=== PATIENT | male | born 1960 | race Caucasian/White ===

== ENCOUNTER → 2017-01-13 | Outpatient (CLI) | payer MEDICARE, MEDICAID ==
[~2017-01-13] MED LIST: /TIOT18INH INH; ABREVA; ACTO15TA OR; ALBU17IN2 INH; ALTA10CA3 PO; ASPI1TAB PO; ATEN25TA OR; ATEN50TA2 PO; AUGM500T34 OR; BYETTA OR; CARI350T OR; CELE40TA OR; CITA40TA4 PO; DRIS50002 PO; GABA300T OR; GLUC500T OR; HUMA100I3 SC; INSULANT SC; KEFL500C7 PO; LIDO5DIS TOP; LISI10TA4 OR; MELOPOW OR; MOBI15TA PO; MS C15TA2 PO; NITR0.4S SL; OMEP20TA7 OR; PLAV75TA2 OR; ROXI1TAB2 PO; SIMV80TA OR; TIOT18INH INH; TRAM50TA2 OR; TYLE325T5 PO; VICO5TAB; VICOBULK OR; VICODIN PO; VITAMIN D50000 UNT OR; flexeril PO
--- NOTE | 2017-01-13 13:32 | REP ---
MR angiography of the aorta and lower extremity arteries: With IV contrast. History: Peripheral vascular disease. Gadolinium enhancement dose: 35 ml of intravenous ProHance is administered. Technique: 3-D MR angiography of the abdominal aorta and runoff vessels is acquired and maximal intensity projection images are generated and reviewed rotationally. Source coronal images are reviewed as well. MR angiographic findings: There is mild atherosclerotic irregularity of the suprarenal and infrarenal abdominal aorta. The celiac and superior mesenteric artery origins are widely patent. Right renal artery is duplicated. Neither branch shows high-grade stenosis. The left renal artery singular and nonstenotic. Flow signal is noted in a patent inferior mesenteric artery. There is atherosclerotic plaquing at the origins of the common iliac arteries bilaterally with 60-70% stenosis of the right common iliac artery at its origin. There is 50% stenosis of the distal common iliac artery just above the bifurcation with eccentric anterior wall plaquing. Mild plaquing and 50% stenosis is seen at the origin of the left external iliac artery. The internal iliacs are bilaterally patent. The external iliac arteries are widely patent bilaterally. Profunda and superficial femoral arteries are widely patent bilaterally. Popliteal arteries are widely patent and smooth. The calf trifurcations are clear and three-vessel calf run off is seen to the distal calf bilaterally. Impression: Bilateral common iliac artery atherosclerotic disease with 60-70% stenosis at the origin of the right common iliac artery and 50% stenosis in the distal common iliac artery on the right. There is 50% stenosis of the origin of the left external iliac artery. Lower extremity runoff arterial flow is otherwise unremarkable. Signed by Yeison Jasmine MD 01/13/2017 03:39 P
== END ==
LOC: M RAD 12:17
PROVIDERS: ATTEND Family Medicine
DX: I73.9 Peripheral vascular disease, unspecified (principal)
CPT/HCPCS: A9576; C8902; C8914

== ENCOUNTER → 2017-04-21 | Outpatient (CLI) | payer MEDICARE, MEDICAID ==
[~2017-04-21] VITALS: Ht 162.6 cm; Wt 92.5 kg
[~2017-04-21] MED LIST changes: -ALTA10CA3 PO; +ALTA1CAP4 PO; +ASPI81TA18 PO; +BUPR150T5 PO; +CELE20TA PO; +CELE40TA PO; +CLOP75TA2 PO; +CYCL10TA PO; +EZET10TA PO; +GABA-282 PO; +INCR1INH IN; +INSULADS INJ; +JANU100T PO; +KEFL500C17 PO; -KEFL500C7 PO; +LIDOCAINE 2% INJ 100 MG/5 ML SDV (FOR ANES.) As Ordered ONE; +METF500T13 PO; -MS C15TA2 PO; +MS C15TA8 PO; +NS 1,000 ML IV ONE; +OMEP20CA3 PO; +PROPOFOL 500 MG/50 ML VIAL As Ordered ONE; +ROPI0.5T PO; +SIMV40TA2 PO
--- NOTE | 2017-04-21 10:29 | ROOR ---
Patient Name: Oscar Acosta Procedure Date: 04/21/2017 10:09 AM Date of : 1960 Age: 56 Room: [facility] Gender: Male Note Status: Finalized Procedure: Colonoscopy Indications: High risk colon cancer surveillance: Personal history of colonic polyps Providers: Olivier SINGH MD Referring MD: CARLOS ZELAYA MD Requesting Provider: Medicines: Monitored Anesthesia Care Complications: No immediate complications. Procedure: Pre-Anesthesia Assessment: - The heart rate, respiratory rate, oxygen saturations, blood pressure, adequacy of pulmonary ventilation, and response to care were monitored throughout the procedure. The Colonoscope was introduced through the anus and advanced to the cecum, identified by appendiceal orifice and ileocecal valve. The colonoscopy was performed without difficulty. The patient tolerated the procedure well. The quality of the bowel preparation was good. Findings: The perianal and digital rectal examinations were normal. (Exam: Complete, Prep: Good or Excellent.) A 4 mm polyp was found in the sigmoid colon. The polyp was sessile. The polyp was removed with a cold snare. Resection and retrieval were complete. The exam was otherwise without abnormality on direct and retroflexion views. Impression: - One 4 mm polyp in the sigmoid colon, removed with a cold snare. Resected and retrieved. - The examination was otherwise normal on direct and retroflexion views. Recommendation: - Repeat colonoscopy in 5 years for surveillance. - Resume Plavix (clopidogrel) at prior dose today. Olivier Singh MD Olivier SINGH MD 04/21/2017 10:29:05 AM This report has been signed electronically. Number of Addenda: 0 Note Initiated On: 04/21/2017 10:09 AM Estimated Blood Loss: Estimated blood loss: none.
[2017-04-21 10:55] VITALS: BP 138/86
== END ==
LOC: M OPP 08:21
PROVIDERS: ATTEND Internal Medicine Gastroenterology
DX: Z12.11 Encounter for screening for malignant neoplasm of colon (principal); D12.5 Benign neoplasm of sigmoid colon; J44.9 Chronic obstructive pulmonary disease, unspecified; M19.90 Unspecified osteoarthritis, unspecified site; I10 Essential (primary) hypertension; E11.9 Type 2 diabetes mellitus without complications; Z88.8 Allergy status to other drugs, medicaments and biological substances; F17.210 Nicotine dependence, cigarettes, uncomplicated

== ENCOUNTER → 2017-07-24 | Outpatient (CLI) | payer MEDICARE, MEDICAID ==
[~2017-07-24] MED LIST changes: -LIDOCAINE 2% INJ 100 MG/5 ML SDV (FOR ANES.) As Ordered ONE; -NS 1,000 ML IV ONE; -PROPOFOL 500 MG/50 ML VIAL As Ordered ONE
--- NOTE | 2017-07-24 15:19 | REP ---
Low-dose lung screening CT without IV contrast: Comparison is 03/04/2016. Images are presented at lung windowing only. There are no nodules or masses. There are no infiltrates or effusions. There are subtle ground-glass densities in the medial lower lobes bilaterally, unchanged, likely representing chronic fibrotic change. An azygos lobe is incidentally noted is a can Impression: Category one low-dose screening chest CT. Probability of malignancy is less than 1%. Continued annual low-dose lung screening CT is recommended. Signed by Juan Nice MD 07/24/2017 03:09 P
== END ==
LOC: M RAD 13:19
PROVIDERS: ATTEND Internal Medicine Pulmonary Disease
DX: J44.9 Chronic obstructive pulmonary disease, unspecified (principal); F17.218 Nicotine dependence, cigarettes, with other nicotine-induced disorders

== ENCOUNTER → 2017-09-04 | Outpatient (CLI) | payer MEDICARE, MEDICAID ==
--- NOTE | 2017-09-04 11:04 | REP ---
CT of the abdomen without IV or bowel contrast: The pelvis is not included. Comparison is 10/15/2012. On the comparison study there were findings compatible with acute appendicitis. On the study today the visualized lung washburn are unremarkable. The unenhanced hepatic parenchyma, gallbladder, pancreas and spleen are normal size and unremarkable. The adrenals and unenhanced kidneys are unremarkable. There is calcified atheroma in the abdominal aorta. No aneurysm. The aorta is otherwise unremarkable. There is no bowel distension or obstruction. Mesentery is unremarkable. The pelvis is not included. Impression: Essentially negative CT study of the abdomen without IV or bowel contrast. The pelvis is not included. Signed by Juan Nice MD 09/04/2017 10:55 A
== END ==
LOC: M RAD 09:10
PROVIDERS: ATTEND Family Medicine
DX: R10.9 Unspecified abdominal pain (principal)

== ENCOUNTER → 2018-08-10 | Outpatient (CLI) | payer MEDICARE, MEDICAID | LOC: M RAD 08:51 | DX: Z12.2 Encounter for screening for malignant neoplasm of respiratory organs (principal); F17.218 Nicotine dependence, cigarettes, with other nicotine-induced disorders; R91.1 Solitary pulmonary nodule | CPT/HCPCS: G0297 ==

== ENCOUNTER 2019-01-31 10:50 | Emergency (ER) | payer MEDICAID, MEDICARE ==
[~2019-01-31] VITALS: Ht 162.6 cm; Wt 91.8 kg
[~2019-01-31 10:50] MED LIST changes: -/TIOT18INH INH; -ASPI1TAB PO; -ASPI81TA18 PO; +ASPI81TA26 PO; +ASPI81TA52 PO; -DRIS50002 PO; +DRIS50003 PO; -GABA-282 PO; +GABA-843 PO; +PERC5TAB12 PO; +ROBA500T PO; +SPIR1CAP INH
[2019-01-31 12:09] LABS: BASO # 0.1 10^3/uL (0.0-0.2); BASO % 0.8 % (0.0-1.0); EOS # 0.2 10^3/uL (0.0-0.50); EOS % 1.8 % (0.0-3.0); HEMATOCRIT 48.8 % (42.0-52.0); HEMOGLOBIN 17.7 g/dl (13.5-17.5); LYMPH # 3.5 10^3/uL (1.5-4.5); LYMPH % 29.7 % (24.0-44.0); MEAN CORPUSCULAR HEMOGLOBIN 34.2 pg (27.0-33.0); MEAN CORPUSCULAR HGB CONC 36.3 g/dl (32.0-36.5); MEAN CORPUSCULAR VOLUME 94.2 fl (80.0-96.0); MONO # 0.9 10^3/uL (0.0-0.8); MONO % 7.9 % (0.0-5.0); NEUTROPHILS % 59.3 % (36.0-66.0); PLATELET COUNT, AUTOMATED 286 10^3/uL (150-450); RED BLOOD COUNT 5.18 10^6/uL (4.30-6.10); WHITE BLOOD COUNT 11.8 10^3/uL (4.0-10.0)
[2019-01-31] MEDS ORDERED: NS 1,000 ML IV ONE (12:15)
[2019-01-31] MEDS ORDERED: RAMI1CAP26 (12:36)
[2019-01-31] MEDS ORDERED: GABA600T4 (12:36)
[2019-01-31] MEDS ORDERED: ROPI0.5T (12:36)
[2019-01-31] MEDS ORDERED: TRES1INJ2 (12:36)
[2019-01-31] MEDS ORDERED: JARD1TAB3 (12:36)
[2019-01-31] MEDS ORDERED: EZET10TA (12:36)
[2019-01-31] MEDS ORDERED: TRUL0.5I (12:36)
[2019-01-31] MEDS ORDERED: OMEP-218 (12:36)
[2019-01-31] MEDS ORDERED: CYCL10TA (12:36)
[2019-01-31 12:37] LABS: ALBUMIN 3.9 GM/DL (3.2-5.2); ALT/SGPT 35 U/L (12-78); BILIRUBIN,DIRECT 0.2 MG/DL (0.0-0.2); BILIRUBIN,TOTAL 1.1 MG/DL (0.2-1.0); BLOOD UREA NITROGEN 22 MG/DL (7-18); CALCIUM LEVEL 9.7 MG/DL (8.5-10.1); CARBON DIOXIDE LEVEL 26 MEQ/L (21-32); CHLORIDE LEVEL 103 MEQ/L (98-107); CREATININE FOR GFR 0.99 MG/DL (0.70-1.30); GLOMERULAR FILTRATION RATE > 60.0 (>56); GLUCOSE, FASTING 264 MG/DL (70-100); LIPASE 97 U/L (73-393); POTASSIUM SERUM 4.3 MEQ/L (3.5-5.1); SODIUM LEVEL 137 MEQ/L (136-145); TOTAL PROTEIN 7.4 GM/DL (6.4-8.2)
[2019-01-31] MEDS ORDERED: ONDANSETRON 4MG/2ML VIAL (J2405) IV ONE (13:00)
[2019-01-31 13:42] LABS: CPK CREATINE PHOSPHOKINASE 101 U/L (39-308); MB/CK RELATIVE INDEX 1.39 (< OR =4); TROPONIN I < 0.02 NG/ML (< 0.10)
[2019-01-31] MEDS ORDERED: ISOVUE-370 76% 100ML VIAL (Q9967) As Ordered ONE (14:00)
[2019-01-31] MEDS ORDERED: ONDA4TAB6 PO (14:46)
[2019-01-31 14:51] VITALS: BP 117/64
--- NOTE | 2019-01-31 15:07 | REP ---
CT ABDOMEN AND PELVIS WITH IV CONTRAST: TECHNIQUE: Axial contrast enhanced images from the lung bases to the pubic symphysis using 100 mL Isovue 370 intravenous contrast material with multiplanar reformations. Visualized lung bases demonstrate no evidence of acute infiltrate. Liver, spleen, adrenals, pancreas, and kidneys appear unremarkable. There is no hydronephrosis bilaterally. The gallbladder demonstrates a tiny calcification in the wall of the fundus of the gallbladder. However, no definite intraluminal stones are seen. I see no abdominal aortic aneurysm with mild to moderate atherosclerotic calcification. There is no adenopathy. There is no free air or free fluid. There is no bowel wall thickening. Surgical sutures are seen in the region of the cecum. There is no bowel obstruction. There is no pelvic mass. The urinary bladder appears unremarkable. There are degenerative changes of the spine. IMPRESSION: No acute abnormalities detected. There is a tiny calcification in the wall of the fundus of the gallbladder, but no definite intraluminal stones are seen. No other definite abnormality is seen. Electronically Signed by Juan Mckeon MD 02/01/2019 03:14 P
--- NOTE | 2019-01-31 22:09 | ECGEPIP ---
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 Order Number: [id number] Reading MD: Celio Vaughan Measurements Intervals [place] Rate: 96 P: 69 FL: 195 QRS: 97 QRSD: 99 T: 46 QT: 352 QTc: 445 Interpretive Statements SINUS RHYTHM BORDERLINE RIGHT AXIS DEVIATION SIMILAR TO 05/10/13 Electronically Signed On 01-31-2019 22:09:07 EDT by Celio Vaughan
== END 2019-01-31 14:52 | disposition home or self-care (01) ==
LOC: M ED 10:50
DX: K82.8 Other specified diseases of gallbladder (principal); R11.2 Nausea with vomiting, unspecified; R10.30 Lower abdominal pain, unspecified; I12.9 Hypertensive chronic kidney disease with stage 1 through stage 4 chronic kidney disease, or unspecified chronic kidney disease; E78.00 Pure hypercholesterolemia, unspecified; J44.9 Chronic obstructive pulmonary disease, unspecified; G47.30 Sleep apnea, unspecified; K21.9 Gastro-esophageal reflux disease without esophagitis; N18.2 Chronic kidney disease, stage 2 (mild); E11.22 Type 2 diabetes mellitus with diabetic chronic kidney disease; F32.9 Major depressive disorder, single episode, unspecified; Z88.8 Allergy status to other drugs, medicaments and biological substances; Z79.899 Other long term (current) drug therapy; Z79.4 Long term (current) use of insulin; Z79.82 Long term (current) use of aspirin; Z79.02 Long term (current) use of antithrombotics/antiplatelets
CPT/HCPCS: 74177; 80048; 80076; 81001; 82550; 82553; 83690; 84484; 85025; 93005; 96374; 99284; J2405; Q9967

== ENCOUNTER → 2019-04-07 | Outpatient (REF) | payer MEDICARE ==
[~2019-04-07] MED LIST changes: +CYCL10TA; -EZET10TA PO; +EZET10TA21; +EZET10TA21 PO; +GABA600T4; +JARD1TAB3; +OMEP-218; -OMEP20CA3 PO; +OMEP20CA4 PO; +ONDA4TAB6 PO; +RAMI1CAP26; +ROPI0.5T; +TRES1INJ2; +TRUL0.5I
[2019-04-07 14:36] LABS: BASO # 0.2 10^3/uL (0.0-0.2); BASO % 1.4 % (0.0-1.0); EOS # 0.4 10^3/uL (0.0-0.50); EOS % 3.3 % (0.0-3.0); HEMATOCRIT 48.9 % (42.0-52.0); HEMOGLOBIN 17.1 g/dl (13.5-17.5); LYMPH # 3.6 10^3/uL (1.5-4.5); LYMPH % 32.7 % (24.0-44.0); MEAN CORPUSCULAR HEMOGLOBIN 34.3 pg (27.0-33.0); MEAN CORPUSCULAR VOLUME 98.2 fl (80.0-96.0); MONO % 8.9 % (0.0-5.0); NEUTROPHILS # 5.8 10^3/uL (1.8-7.7); NEUTROPHILS % 53.1 % (36.0-66.0); PLATELET COUNT, AUTOMATED 321 10^3/uL (150-450); RED BLOOD COUNT 4.98 10^6/uL (4.30-6.10); WHITE BLOOD COUNT 10.9 10^3/uL (4.0-10.0)
[2019-04-07 15:12] LABS: ALBUMIN 3.8 GM/DL (3.2-5.2); ALT/SGPT 42 U/L (12-78); BILIRUBIN,TOTAL 0.5 MG/DL (0.2-1.0); BLOOD UREA NITROGEN 13 MG/DL (7-18); CALCIUM LEVEL 9.2 MG/DL (8.5-10.1); CARBON DIOXIDE LEVEL 28 MEQ/L (21-32); CHLORIDE LEVEL 102 MEQ/L (98-107); CREATININE FOR GFR 0.95 MG/DL (0.70-1.30); FOLATE 9.4 NG/ML; FREE T4 0.98 NG/DL (0.76-1.46); GLOMERULAR FILTRATION RATE > 60.0 (>56); GLUCOSE, FASTING 210 MG/DL (70-100); POTASSIUM SERUM 4.4 MEQ/L (3.5-5.1); RHEUMATOID FACTOR QUANT < 10.0 IU/ML (<15.0); SODIUM LEVEL 137 MEQ/L (136-145); TOTAL PROTEIN 7.6 GM/DL (6.4-8.2); VITAMIN B12 LEVEL 514 PG/ML
[2019-04-07 15:13] LABS: ERYTHROCYTE SEDIMENTATION RATE 9 mm/hr (0-20)
[2019-04-11 14:36] LABS: ANTINUCLEAR ANTIBODIES DIRECT Negative (Negative); VITAMIN B1 LEVEL WHOLE BLOOD 175.3 nmol/L (66.5-200.0); VITAMIN B6,PYRIDOXAL PHOSPHATE 6.1 ug/L (5.3-46.7); VITAMIN E(ALPHA TOCOPHEROL) 5.7 mg/L (7.0-25.1); VITAMIN E(GAMMA TOCOPHEROL) 1.1 mg/L (0.5-5.5)
== END ==
LOC: M LABNEURO 09:47
PROVIDERS: ATTEND Psychiatry & Neurology Neurology
DX: G31.84 Mild cognitive impairment of uncertain or unknown etiology (principal); E07.9 Disorder of thyroid, unspecified

== ENCOUNTER 2019-09-09 08:12 | Emergency (ER) | payer MEDICARE ==
[~2019-09-09] VITALS: Ht 157.5 cm; Wt 97.3 kg
[~2019-09-09 08:12] MED LIST changes: +OMEP-172 PO; -OMEP20CA4 PO; -SIMV40TA2 PO; +SIMV40TA20 PO
[2019-09-09 08:13] VITALS: BP 133/76
[2019-09-09] MEDS ORDERED: LIDOCAINE 1% MDV 20ML VIAL SC ONE (09:00)
[2019-09-09] MEDS ORDERED: BACITRACIN OINT 30GM TOP ONE (09:30)
[2019-09-09] MEDS ORDERED: BACIOIN5 OP (09:37)
== END 2019-09-09 09:53 | disposition home or self-care (01) ==
LOC: M ED 08:12
DX: L72.0 Epidermal cyst (principal); E11.9 Type 2 diabetes mellitus without complications; Z79.899 Other long term (current) drug therapy; Z79.82 Long term (current) use of aspirin; Z79.4 Long term (current) use of insulin; Z88.8 Allergy status to other drugs, medicaments and biological substances; F17.210 Nicotine dependence, cigarettes, uncomplicated

== ENCOUNTER → 2019-11-04 | Outpatient (CLI) | payer MEDICARE ==
[~2019-11-04] MED LIST changes: +BACIOIN5 OP; -OMEP-172 PO; +OMEP1CAP73 PO; -ROPI0.5T; -ROPI0.5T PO; +ROPI0.5T3; +ROPI0.5T3 PO
--- NOTE | 2019-11-04 09:18 | REP ---
Low-dose lung screening chest CT: Comparisons are 08/10/2018 and 03/04/2016. There is a pleural-based 6 ml lung nodule medially in the right lower lobe on image 49, unchanged from both prior studies. There are no other lung nodules or masses. 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 There is chronic stable ground-glass density just inferior to this azygos lobe and ground-glass density peripherally in the left lung, stable and unchanged, likely representing chronic parenchymal scarring. There are no infiltrates or effusions. Impression: Category II low-dose lung screening chest CT. The probability of malignancy is less than 1%. Depending on risk factors, continue annual follow-up low-dose lung screening CT. Electronically Signed by Juan Nice MD 11/04/2019 09:11 A
== END ==
LOC: M RAD 08:43
PROVIDERS: ATTEND Physician Assistant
DX: Z12.2 Encounter for screening for malignant neoplasm of respiratory organs (principal); F17.218 Nicotine dependence, cigarettes, with other nicotine-induced disorders

== ENCOUNTER → 2020-11-05 | Outpatient (CLI) | payer MEDICARE ==
[~2020-11-05] MED LIST changes: +CYCL-707; +CYCL-707 PO; -CYCL10TA; -CYCL10TA PO; +GABA-282 PO; -GABA-843 PO
--- NOTE | 2020-11-05 14:15 | REP ---
INDICATION: NICOTINE DEPENDENCE. COMPARISON: Comparison chest CT studies are reviewed dated November 04, 2019, August 10, 2018, July 24, 2017, and March 04, 2016.. TECHNIQUE: Low-dose screening exam. Axial 3 mm slices are provided at lung only windows. FINDINGS: The previously noted pleural based 5 mm noncalcified nodule in the right lower lobe is again seen on page 49 of 108 series 201 of today's study unchanged from the comparison studies. However, there are 3 new noncalcified pulmonary nodules. The largest of these is in the posterior aspect of the left upper lobe. This measures 1.6 cm in diameter, it is seen projecting on page 24 of 108 series 201 of today's exam.. This must be considered suspicious. A 2nd nodular density is in the right lower lobe projecting on page 51 of 108. This measures 5 mm. The 3rd nodule is a 4 mm noncalcified pulmonary nodule in the right lower lobe adjacent to the major fissure projecting on page 55 of 108 in series 201 of today's study. There is some stable hazy ground-glass opacities in the peribronchovascular region of the bases bilaterally. This is unchanged. IMPRESSION: There are 3 new noncalcified pulmonary nodules the largest of which is 1.6 cm in diameter, this is in the left upper lobe. Two small subcentimeter nodules have developed in the right lower lobe. Lung RADS category is 4 B suspicious. With multiple new pulmonary nodules, the possibility of metastatic malignancy is not excluded. An azygos lobe is again seen unchanged. Consider PET-CT. <Electronically signed by Damir Jasmine > 11/05/20 [id number]
== END ==
LOC: M RAD 10:11
PROVIDERS: ATTEND Physician Assistant
DX: Z12.2 Encounter for screening for malignant neoplasm of respiratory organs (principal); F17.218 Nicotine dependence, cigarettes, with other nicotine-induced disorders

== ENCOUNTER → 2020-12-10 | Outpatient (CLI) | payer MEDICARE ==
[~2020-12-10] MED LIST changes: +BUPR1TAB53 PO; +CITA20TA6 PO; +CREO6000 PO; +DONE10TA90 PO; +INCR1INH INH; +MEMA10TA19 PO; +METF-839 PO; +NOVOINJ3 SC; +PLAV1TAB2 PO; +RAMI1CAP26 PO; +TRES1INJ2 SC; +TRUL0.5I SC
[2020-12-10 09:49] LABS: PLATELET COUNT, AUTOMATED 305 10^3/uL (150-450)
[2020-12-10 10:12] LABS: INR 0.91; PROTHROMBIN TIME 12.4 SECONDS (12.5-14.3)
[2020-12-10 10:13] LABS: PARTIAL THROMBOPLASTIN TIME 26.4 SECONDS (24.2-38.5)
== END ==
LOC: M LAB 08:44
PROVIDERS: ATTEND Internal Medicine Pulmonary Disease
DX: R91.8 Other nonspecific abnormal finding of lung field (principal)

== ENCOUNTER → 2020-12-11 | Outpatient (CLI) | payer MEDICARE ==
[~2020-12-11] MED LIST changes: +LIDOCAINE 1% MDV 20ML VIAL As Ordered ONE
--- NOTE | 2020-12-11 10:48 | REP ---
INDICATION: POST LEFT LUNG BIOPSY, 1 VIEW. COMPARISON: Comparison portable chest x-ray March 20, 2014.. TECHNIQUE: Upright inspire a donnie PA radiograph. FINDINGS: An azygos lobe is noted on the right. There is a small left apical pneumothorax. Lung washburn are otherwise clear. Pleural angles are sharp. Mediastinum is not widened. Heart size is normal. IMPRESSION: Small post biopsy left apical pneumothorax. Follow-up chest x-ray will be obtained 2 hours from this. <Electronically signed by Damir Jasmine > 12/11/20 1931
[2020-12-11 12:42] VITALS: BP 172/88
--- NOTE | 2020-12-11 12:58 | REP ---
INDICATION: POST LEFT LUNG BIOPSY , 1 VIEW. Follow-up 4 small left-sided pneumothorax post biopsy. COMPARISON: Comparison radiograph 10:34 a.m. on this same date December 11, 2020.. TECHNIQUE: PA chest radiograph 12:34 p.m. 12/11/2020. FINDINGS: A tiny sliver of apical pleural air is again noted on the left slightly improved from the earlier film. No progression. Azygos lobe noted on the right. No infiltrate or effusion. IMPRESSION: Stable tiny left apical pneumothorax. Patient can be released. <Electronically signed by Damir Jasmine > 12/11/20 0414
--- NOTE | 2020-12-11 15:51 | REP ---
INDICATION: TUAN LUNG NODULE. COMPARISON: None. TECHNIQUE: The procedure was performed under the direct supervision of Dr. Jasmine. The patient has a history of a 1.6 cm noncalcified pulmonary nodule in the left upper lobe seen on a previous CT scan dated 11/05/2020. The risks and benefits of the procedure were explained to the patient and informed consent was obtained. The left upper lobe lung nodule was localized using CT guidance. The skin was prepped and draped in a sterile fashion. 1% lidocaine was used as a local anesthetic. Using CT guidance a 19/20 gauge coaxial needle biopsy system was inserted and advanced into the nodule. Five core biopsy samples were obtained and sent to the lab for analysis. Images obtained after the biopsy demonstrated a small left pneumothorax. The patient's O2 saturations and vital signs were stable. The patient complained of no pain. The patient was placed on 2 L of O2 via nasal cannula. Chest x-ray performed immediately after the procedure demonstrates a small post biopsy left apical pneumothorax. Chest x-ray performed 2 hours later demonstrated a stable, tiny left apical pneumothorax. The patient tolerated the procedure well. After the appropriate amount to monitor convalescence the patient was discharged from the department. FINDINGS: None IMPRESSION: CT-guided left upper lobe lung biopsy. <Electronically signed by Ron Garcia > 12/11/20 1536 <Electronically signed by Damir Jasmine > 12/11/20 1542
== END ==
LOC: M IRPRO 09:09
PROVIDERS: ATTEND Internal Medicine Pulmonary Disease
DX: R91.1 Solitary pulmonary nodule (principal); J84.10 Pulmonary fibrosis, unspecified; J95.811 Postprocedural pneumothorax

== ENCOUNTER → 2020-12-24 | Outpatient (CLI) | payer MEDICARE ==
[~2020-12-24] MED LIST changes: -LIDOCAINE 1% MDV 20ML VIAL As Ordered ONE
== END ==
LOC: M PLARAD 11:56
PROVIDERS: ATTEND Internal Medicine Pulmonary Disease
DX: R91.8 Other nonspecific abnormal finding of lung field (principal); Z53.9 Procedure and treatment not carried out, unspecified reason

== ENCOUNTER → 2021-01-21 | Outpatient (CLI) | payer MEDICARE ==
--- NOTE | 2021-01-21 13:31 | REP ---
INDICATION: DIAGNOSING ABNORMAL FINDINGS OF LUNG FIELD R91.8. Multiple new pulmonary nodules. COMPARISON: Comparison CT study November 05, 2020.. TECHNIQUE: 1 hour 11 minutes following the intravenous injection of a 14.77 mCi dose of F-18 FDG, three-dimensional PET scintigraphy is acquired from the skull base to the proximal thighs. Triplanar noncontrast CT scanning is acquired through the same anatomic range for attenuation correction, and image registration with scan parameters optimized to minimize radiation exposure to the patient. PET scintigraphy and CT datasets were fused and displayed on a workstation with multiplanar and projection display capability. FINDINGS: The recently biopsied nodule in the left upper lobe shows mildly hypermetabolic uptake. Maximum standard uptake value in this pulmonary parenchymal nodule is 4.09. The other small right-sided pulmonary nodules show no discernible uptake. They are subcentimeter in size. An azygos lobe is again noted. There is no abnormal hypermetabolic mediastinal or hilar manny uptake. Head and neck soft tissues are unremarkable. No abnormal hypermetabolic uptake is seen in the abdomen or pelvis. IMPRESSION: The recently biopsied nodule in the left upper lobe is mildly hypermetabolic, SUV 4.09. No other abnormal hypermetabolic uptake is seen. <Electronically signed by Damir Jasmine > 01/21/21 [id number]
== END ==
LOC: M PLARAD 08:37
PROVIDERS: ATTEND Internal Medicine Pulmonary Disease
DX: R91.8 Other nonspecific abnormal finding of lung field (principal)
CPT/HCPCS: 78815; A9552

== ENCOUNTER → 2021-02-27 | Outpatient (REF) | payer MEDICARE ==
[2021-02-27 11:21] LABS: ALBUMIN 3.5 GM/DL (3.2-5.2); ALT/SGPT 31 U/L (12-78); BILIRUBIN,TOTAL 0.6 MG/DL (0.2-1.0); BLOOD UREA NITROGEN 16 MG/DL (7-18); CALCIUM LEVEL 9.4 MG/DL (8.8-10.2); CARBON DIOXIDE LEVEL 29 MEQ/L (21-32); CHLORIDE LEVEL 102 MEQ/L (98-107); CREATININE FOR GFR 1.05 MG/DL (0.70-1.30); GLOMERULAR FILTRATION RATE > 60.0 (>49); GLUCOSE, FASTING 269 MG/DL (70-100); MAGNESIUM LEVEL 1.3 MG/DL (1.8-2.4); POTASSIUM SERUM 4.7 MEQ/L (3.5-5.1); SODIUM LEVEL 138 MEQ/L (136-145); TOTAL PROTEIN 6.8 GM/DL (6.4-8.2)
== END ==
LOC: M PLALAB 09:53
PROVIDERS: ATTEND Registered Nurse
DX: R19.7 Diarrhea, unspecified (principal); I10 Essential (primary) hypertension

== ENCOUNTER → 2021-03-04 | Outpatient (REF) | payer MEDICARE | LOC: M LAB REF 13:22 | PROVIDERS: ATTEND Registered Nurse | DX: R19.7 Diarrhea, unspecified (principal) ==

== ENCOUNTER → 2021-07-25 | Outpatient (CLI) | payer OTHER | LOC: M RAD 08:33 | PROVIDERS: ATTEND Internal Medicine Pulmonary Disease | DX: R91.1 Solitary pulmonary nodule (principal) ==

== ENCOUNTER → 2021-07-25 | Outpatient (CLI) | payer OTHER ==
--- NOTE | 2021-07-25 09:52 | REPVR ---
PROCEDURE INFORMATION: Exam: CT Chest Without Contrast; Diagnostic Exam date and time: 07/25/2021 8:44 AM Age: 61 years old Clinical indication: Abnormal findings; Lung mass or nodule; Not specified; Additional info: Lung nodule TECHNIQUE: Imaging protocol: Diagnostic computed tomography of the chest without contrast. 3D rendering (Not supervised by radiologist): MIP and/or 3D reconstructed images were created by the technologist. Radiation optimization: All CT scans at this facility use at least one of these dose optimization techniques: automated exposure control; mA and/or kV adjustment per patient size (includes targeted exams where dose is matched to clinical indication); or iterative reconstruction. COMPARISON: PT PET/CT Skull/mid thigh 01/21/2021 10:50 AM FINDINGS: Lungs: There is again a nodule in the posteromedial aspect of the left upper lobe which currently measures 2.9 x 1.8 x 1.7 cm, which is predominantly solid, has some spiculations, and a small central cavitary focus. This corresponds with a FDG avid nodule on the prior PET-CT scan. It seems to be larger than on the prior exam, but the comparison is somewhat limited due to the thicker slices and lower resolution for theCT images on the prior PET-CT scan. Approximate measurements previously are 2.4 x 1.8 cm. There are two 6 mm solid pulmonary nodules in the right lower lobe (image 61 and image 56 of series 201) which were present on the prior exam and appear grossly unchanged in size but there was motion artifact through these levels previously, limiting the comparison. There is heterogeneous ground-glass attenuation in both lungs, which has a somewhat central predominance, and is more pronounced in the bilateral lower lobes, not clearly seen previously. The lungs appear mildly hyperinflated. Pleural spaces: No pleural effusions or pneumothorax identified. Heart: The heart is normal in size. There is severe atherosclerotic calcification of the coronary arteries. Aorta: The aorta demonstrates moderate atherosclerotic calcification. No aortic aneurysm. Lymph nodes: No lymphadenopathy is seen. No lymphadenopathy is seen. Bones/joints: Mild degenerative endplate changes are noted in the visualized spine. No suspicious osseous lesions. No acute fractures. Soft tissues: The soft tissues appear unremarkable. Other findings: No definite new nodules are identified. IMPRESSION: 1. Nodule in the posteromedial aspect of the left upper lobe again seen, which is predominantly solid, with a small central cavitary component and some spiculations of its borders, currently measuring 2.9 x 1.8 x 1.7 cm. This corresponds with an FDG avid nodule on the prior PET-CT scan and is highly suspicious for pulmonary malignancy. Biopsy is recommended. The nodule seems to have increased in size slightly compared to the prior exam, although the comparison is somewhat limited due to the differences in imaging technique. 2. Two 6 mm pulmonary nodules in the right lower lobe, grossly unchanged in size from the prior exam, but again the comparison is somewhat limited. 3. Mild, patchy ground-glass opacity in both lungs, which is nonspecific, but may represent a pneumonitis of infectious or inflammatory cause. Inflammation of the lung related to treatment is also possible. Please correlate clinically. Electronically signed by: Sagrario Magallanes On 07/25/2021 09:51:53 AM
[2021-07-25 10:13] LABS: APPEARANCE, URINE CLEAR (CLEAR); BACTERIA, URINE AUTO NEGATIVE (NEGATIVE); BILIRUBIN, URINE AUTO NEGATIVE (NEGATIVE); BLOOD, URINE BLOOD NEGATIVE (NEGATIVE); COLOR, URINE YELLOW (YELLOW); GLUCOSE, URINE (UA) AUTO 3+ mg/dL (NEGATIVE); KETONE, URINE AUTO NEGATIVE (NEGATIVE); LEUKOCYTE ESTERASE, URINE AUTO NEGATIVE (NEGATIVE); NITRITE, URINE AUTO NEGATIVE (NEGATIVE); PROTEIN, URINE AUTO 1+ mg/dL (NEGATIVE); RBC, URINE AUTO 0 /HPF (0-3); SPECIFIC GRAVITY URINE AUTO 1.029 (1.002-1.035); SQUAMOUS EPITHELIAL CELL UR AU 0 /HPF (0-6); UROBILINOGEN, URINE AUTO 0.2 mg/dL (0.0-2.0); WBC, URINE AUTO 0 /HPF (0-3)
[2021-07-25 10:14] LABS: HEMATOCRIT 50.9 % (42.0-52.0); HEMOGLOBIN 17.7 g/dl (13.5-17.5); MEAN CORPUSCULAR HEMOGLOBIN 33.5 pg (27.0-33.0); MEAN CORPUSCULAR HGB CONC 34.8 g/dl (32.0-36.5); MEAN CORPUSCULAR VOLUME 96.4 fl (80.0-96.0); PLATELET COUNT, AUTOMATED 280 10^3/uL (150-450); RED BLOOD COUNT 5.28 10^6/uL (4.30-6.10); WHITE BLOOD COUNT 11.7 10^3/uL (4.0-10.0)
[2021-07-25 10:55] LABS: CREATININE, URINE 49.2 MG/DL; MAU/CREAT RATIO 434.9 MCG/MG (0.0-30.0)
[2021-07-25 11:48] LABS: BLOOD UREA NITROGEN 19 MG/DL (7-18); CALCIUM LEVEL 10.1 MG/DL (8.8-10.2); CARBON DIOXIDE LEVEL 31 MEQ/L (21-32); CHLORIDE LEVEL 96 MEQ/L (98-107); CHOLESTEROL LEVEL 125 MG/DL (<200); CHOLESTEROL RISK RATIO 3.472 (<5); CREATININE FOR GFR 1.25 MG/DL (0.70-1.30); FREE T4 1.06 NG/DL (0.76-1.46); GLOMERULAR FILTRATION RATE > 60.0 (>49); GLUCOSE, FASTING 453 MG/DL (70-100); HDL CHOLESTEROL 36 MG/DL (>40); LDL CHOLESTEROL 48 MG/DL (<100); MAGNESIUM LEVEL 1.9 MG/DL (1.8-2.4); NON-HDL-C 89 MG/DL; POTASSIUM SERUM 4.9 MEQ/L (3.5-5.1); PROSTATIC SPECIFIC AG MONITOR 0.18 NG/ML (< 4.00); SODIUM LEVEL 133 MEQ/L (136-145); TOTAL 25(OH) VITAMIN D 65.2 NG/ML (30.0-100.0); TRIGLYCERIDES LEVEL 205 MG/DL (<150); URIC ACID 4.5 MG/DL (3.5-7.2)
== END ==
LOC: M LAB 08:36
PROVIDERS: ATTEND Registered Nurse
DX: E78.5 Hyperlipidemia, unspecified (principal); I10 Essential (primary) hypertension; Z12.5 Encounter for screening for malignant neoplasm of prostate; E83.42 Hypomagnesemia; Z13.29 Encounter for screening for other suspected endocrine disorder; Z79.899 Other long term (current) drug therapy

== ENCOUNTER 2021-08-16 07:52 | Emergency (ER) | payer OTHER ==
[~2021-08-16] VITALS: Ht 162.6 cm; Wt 88.5 kg
[2021-08-16 07:59] VITALS: BP 131/75
--- OUTSIDE RECORDS SUMMARY | 2021-08-16 08:00 | CCD ---
Continuity of Care Document (CCD) Created on: 08/08/2021 Oscar Acosta External Reference #: [id number] : 1960 Sex: Male Author Author Oscar FAY D.O. [place] [address] Phone [phone] Care Team Providers Care Concrete Batch Plant Operator Name Role Phone Kristopher Rincon M.D. AUTM [phone] AUTM Unavailable Problems Active Problems Provider Date Nicotine dependence, cigarettes, with other nicotine-i nduced disorders Raymundo Fay D.O. Onset: 08/13/2016 Chronic obstructive lung disease Raymundo Fay D.O. Onset: 08/13/2016 Obstructive sleep apnea syndrome Raymundo Fay D.O. Onset: 08/13/2016 Nicotine-induced organic mental disorder Raymundo Fay D.O. Onset: 08/13/2015 Tobacco user Adenike Rutledge A.N.PJaylyn Onset: 01/06/2011 Emphysematous bronchitis Adenike Rutledge A.N.PJaylyn Onset: 01/07/20 11 Essential hypertension Adenike Rutledge A.N.PJaylyn Onset: 01/08/2011 Morbid obesity Adenike Rutledge A.N.PJaylyn Onset: 07/07/2011 Body mass index 40+ - severely obese Adenike Rutledge A.N.Meera Ons et: 07/07/2011 Body mass index 30+ - obesity Raymundo Fay D.O. Onset: 11/2012 Social History Type Date Description Comments Sex Unknown ETOH Use 1 A Month Tobacco Use Start: 09/28/73 Patient is a current smoker, smo kes every day 1ppd hx started at age 14 Smoking Status Reviewed: 08/01/21 Patient is a current smoker, smokes every day 1ppd hx started at age 14 Allergies and adverse reactions Active Allergies Criticality Reaction | Severity Comments Date Chantix Unable to assess criticality rash 05/21/2011 Medications Active Medications SIG Qnty Indications Ordering Provide r Date Breo Ellipta 200-25mcg/Inh Aerosol one inhalation daily 60units G47.33 Raymundo Fay D.O. 08/13/2016 Vitamin D (Ergocalciferol) 40620Olht Capsules 1 po [id number] Unknown Bupropion HCL ER (SR) 150mg Tablets ER 12HR 1 by mouth every day Unknown 000 Simvastatin 40mg Tablets one tab by mouth daily Unknown Trulicity 1.5mg/0.5ML Solution Pen -Inject inject 1.5mg weekly Unknown Humalog Kwikpen 100U nit/ML Solution Pen-Inject 1 unit subcutaneous before meals and at bedtime Unknown Aspir-[address] 1 da amanda Unknown Clopidogrel Bisulfate 75mg Tablets 1 by mouth every day Pad Dr [place] Unknown Zetia 10mg Tablets 1 by mo uth every day Unknown Ramipril 5mg Capsules 1 by mouth every day Unknown Cyclobenzaprine HCL 10mg Tablets 1 tab by mouth three times a day as needed Unknown Ropinirole HCL 0.25mg Tablets 1/day Unknown Spiriva Handihaler 18mcg Capsules 1 cap inhalation every in the morning Unknown Proair HFA 108(90Base) mcg/Act Aer osol 2 puffs four times a day as needed Unknown Omeprazole 20mg Capsules DR 1 by mouth every day Unknown Metformin HCL 500mg Tablets 2 po bid Unknown Meloxicam 15mg Tablets 1 po q d Unknown Lisinopril 10mg Tablets 1 po qd Unknown Lidoderm 5% Patches 1 po patc h prn Unknown Celexa 40mg Tablets 1 by mouth every day Unknown Atenolol 50mg Tablets 1 po qd Unknown BIPAP 18/14 lcw Unknown Immunizations CPT Code Status Date Vaccine Lot # [id number] Given 07/21/2018 Influenza Virus Vaccine, Quadrivalent, [place], [place] Use [address] Given 07/20/2017 Influenza Virus Split 3 Yrs And Above For Intramuscular Use Q2037 Given 08/13/2016 Influenza Vaccine (Fluvirin) 3 Years Of Age Or Older 96426 Given 08/13/2016 Influenza Virus Split 3 Yrs And Above For Intramuscular Use [id number] Q2036 Given 07/08/2012 Influenza Vaccine 3 Years Of Age Or Older (Flulaval) 88505 Given 01/06/2012 Pneumococcal PPSV23 Q2036 Given 07/07/2011 Influenza Vaccine 3 Years Of Age Or Older (Flulaval) 95420 Given 06/26/2010 Influenza Vaccine 85795 Given 06/26/2010 Influenza Virus Split 3 Yrs And Above For Intramuscular Use Vital Signs Date Vital Result Comment 08/01/2021 8:17am BP Systolic 120 mmHg BP Diastolic 70 mmHg Heart Rate 90 /min O2 % BldC Oximetry 99 % Height 64 inches 5'4" Weight 192.00 lb BMI (Body Mass Index) 33.0 kg/m2 [place] Body Weight 130 lb Weight 87.091 kg BSA (Body Surface Area) 1.92 m2 01/29/2021 8:13am BP Systolic 110 mmHg BP Diastolic 74 mmHg Heart Rate 94 /min O2 % BldC Oximetry 98 % Body Temperature 96.5 F Height 64 inches 5'4" Weight 194.00 lb BMI (Body Mass Index) 33.3 kg/m2 [place] Body Weight 130 lb Weight 87.998 kg BSA (Body Surface Area) 1.93 m2 Results Test Acquired Date Facility Test Result H/L Range Note FVL/Eduardo 08/01/2021 [facility] SEE IMAGE FVC-Pred 3.74 L FVC-Pre 3.18 L FVC-%Pred-Pre 84 L FVC-LLN 2.96 L Fev1-Pred 2.81 L Fev1-Pre 1.90 L Fev1-%Pred-Pre 67 L Fev1-LLN 2.15 L Fev6-Pred 3.54 L Fev6-Pre 3.18 L Fev6-%Pred-Pre 89 L Fev6-LLN 2.78 L Cps7fvz-Cnie 75 % Aud1rrh-Lcy 60 % Gaz5tqu-%Pred-Pre 79 % Mpo4tqz-KMP 66 % Ixe7bps-Dtgz 95 % Gfz4gno-Wsj 100 % Ult1dle-%Pred-Pre 105 % FEFMax-Pred 7.78 L/E/sec FEFMax-Pre 3.39 L/E/sec FEFMax-%Pred-Pre 43 L/E/sec FEFMax-LLN 5.83 L/E/sec Izj6105-Zkss 2.34 L/E/sec Hwn1609-Zcf 1.18 L/E/sec Glo7033-%Pred-Pre 50 L/E/sec Zcv3493-ARX 1.00 L/E/sec ExpTime-Pre 6.91 sec Ruk0fao0-Wwot 79 % Czd4kzs1-Zun 60 % Kew4usk7-%Pred-Pre 75 % Qtg0pvs0-YHV 70 % Complete Blood Count 07/25/2021 [facility] Main Lab [address] [place] [address] [phone] White Blood Count 11.7 10 High 4.0-10.0 Red Blood Count 5.28 10 Normal 4.30-6.10 Hemoglobin 17.7 g/dL High 13.5-17.5 Hematocrit 50.9 % Normal 42.0-52.0 Mean Corpuscular Volume 96.4 fl High 80.0-96.0 Mean Corpuscular Hemoglobin 33.5 pg High 27.0-33.0 Mean Corpuscular HGB Conc 34.8 g/dL Normal 32.0-36.5 Red Cell Distribution Width 12.3 % Normal 11.5-14.5 Platelet Count, Automated 280 10 Normal 150-450 Nucleated Red Blood Cell % 0.0 % Normal 0-0 Lipid Panel 07/25/2021 [facility] nter Main Lab [address] [place] [address] [phone] Triglycerides Level 205 mg/dL High <150 Cholesterol Level 125 mg/dL Normal <200 HDL Cholesterol 36 mg/dL Low >40 LDL Cholesterol 48 mg/dL Normal <100 Non-HDL-C 89 mg/dL Normal Cholesterol Risk Ratio 3.472 Normal <5 Basic Metabolic Profile 07/25/2021 [facility] Main Lab [address] [place] [address] [phone] Glucose, Fasting 453 mg/dL Critical high 70-100 Blood Urea Nitrogen 19 mg/dL High 7-18 Creatinine For GFR 1.25 mg/dL Normal 0.70-1.30 Glomerular Filtration Rate > 60.0 Normal >49 1 Sodium Level 133 mEq/L Low 136-145 Potassium Serum 4.9 mEq/L Normal 3.5-5.1 Chloride Level 96 mEq/L Low 98-107 Carbon Dioxide Level 31 mEq/L Normal 21-32 Anion Gap 6 mEq/L Low 8-16 Calcium Level 10.1 mg/dL Normal 8.8-10.2 Laboratory test finding 07/25/2021 [facility] Main Lab [address] [place] [address] [phone] Uric Acid 4.5 mg/dL Normal 3.5-7.2 Magnesium Level 1.9 mg/dL Normal 1.8-2.4 Prostatic Specific Ag Monitor 0.18 NG/ML Normal < 4.00 2 FT4&TSH Panel 07/25/2021 [facility] Main Lab [address] [place] [address] [phone] Thyroid Stimulating Hormone 1.730 uIU/ML Normal 0. 358-3.740 Free T4 1.06 ng/dL Normal 0.76-1.46 Laboratory test finding 07/25/2021 [facility] Lab [address] [place] [address] [phone] Free T3 3.0 pg/mL Normal 2.2-4.0 Total 25(Oh) Vitamin D 65.2 NG/ML Normal 30.0-100.0 Ua Routine 07/25/2021 [facility] Main Lab [address] [place] [address] [phone] Appearance, Urine CLEAR Normal Clear Color, Urine YELLOW Normal Yellow PH,Urine 6.0 units Normal 5.0-9.0 Specific [place] Urine Auto 1.029 Normal 1.002-1.035 Protein, Urine Auto 1+ mg/dL High Negative Glucose, Urine (Ua) Auto 3+ mg/dL High Negative Ketone, Urine Auto NEGATIVE mg/dL Normal Negative Urobilinogen, Urine Auto 0.2 mg/dL Normal 0.0-2.0 Bilirubin, Urine Auto NEGATIVE Normal Negative Nitrite, Urine Auto NEGATIVE Normal Negative Leukocyte Esterase, Urine Auto NEGATIVE Normal Negative Blood, Urine Blood NEGATIVE Normal Negative WBC, Urine Auto 0 /HPF Normal 0-3 RBC, Urine Auto 0 /HPF Normal 0-3 Bacteria, Urine Auto NEGATIVE Normal Negative Squamous Epithelial Cell Ur AU 0 /HPF Normal 0-6 Hyaline Cast, Urine Auto 0 /LPF Normal 0-1 Microalbumin Random 07/25/2021 [facility] nter Main Lab [address] [place] [address] [phone] Creatinine, Urine 49.2 mg/dL Normal Malb Urine Siemens 214.0 mg/L Normal Andre/Creat Ratio 434.9 MCG/MG High 0.0-30.0 3 1 Units are mL/min/1.73 m2 Chronic Kidney Disease Staging per NKF: Stage I & II GFR >=60 Normal to Mildly Decreased Stage III GFR 30-59 Moderately Decreased Stage IV GFR 15-29 Severely Decreased Stage V GFR <15 Very Little GFR Left ESRD GFR <15 on SENIOR PRIVATE CLIENT ADVISOR 2 The PSA assay is performed o n the Siemens [place] analyzer by LOCI sandwich chemiluminescent immunoassay and should not be compared interchangeably with other methods. It should not be used alone as a screening test or diagnosis for the presence or absence of malignant disease. Predictions of disease recurrence should not be based solely on values obtained from serial patient serum values. 3 THE [place] DIABETES ASSOC[employer] ATION STATES THAT MICROALBUMINURIA IS PRESENT IF THE MICROALBUMIN/CREATININE RATIO EXCEEDS 30 MCG/MG. THE THRESHOLD FOR CLINICAL ALBUMINURIA IS REACHED AT 300 MCG/MG. THE CLASSIFICATION OF A PATIENT SHOULD BE BASED UPON AT LEAST 2 OF 3 ABNORMAL RESULTS ON SPECIMENS COLLECTED WITHIN A 3 TO 6 MONTH TIME FRAME. 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 08/01/2021 R91.8 Other nonspecific abnormal findi ng of lung field Raymundo Fay D.O. 08/01/2021 F17.218 Nicotine dependence, cigarettes, with other nicotine-induced Raymundo Fay D.O. 08/01/2021 R49.8 Hoarse Raymundo Fay D.O. Plan of Treatment Future Appointment(s):* 01/31/2022 8:30 am - Raymundo Fay D.O. 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 Functional Status Description No Information Available Mental Status Description No Information Available Referrals Refer to Reason for Referral Status Appt Date Radiology/Procedure CT Chest approval Created 00
--- OUTSIDE RECORDS SUMMARY | 2021-08-16 08:01 | CCD ---
Continuity of Care Document (CCD) Created on: 08/01/2021 Oscar Acosta External Reference #: [id number] : 1960 Sex: Male Author Author Oscar FAY D.O. [place] [address] Phone [phone] Care Team Providers Care Independent Marketing Consultant Name Role Phone Kristopher Rincon M.D. AUTM [phone] AUTM Unavailable Problems Active Problems Provider Date [...] started at age 14 Smoking Status Reviewed: 01/29/21 Patient is a current smoker, smokes every day 1ppd hx started at age 14 Allergies and adverse reactions Active Allergies Criticality Reaction | Severity Comments Date Chantix Unable to assess criticality rash 05/21/2011 Medications Active Medications SIG Qnty Indications Ordering Provide r Date Breo Ellipta 200-25mcg/Inh Aerosol one inhalation daily 60units G47.33 Raymundo Fay D.O. 08/13/2016 Vitamin D (Ergocalciferol) 78044Rebx Capsules 1 po [id number] Unknown Jardiance 25mg Tablets one tab by mouth daily Unknown Bupropion HCL ER (SR) 150mg Tablets ER 12HR 1 by mouth every day Unknown 000 Simvastatin 40mg Tablets one tab by mouth daily Unknown Trulicity 1.5mg/0.5ML Solution Pen -Inject inject 1.5mg weekly Unknown Humalog Kwikpen 100U nit/ML Solution Pen-Inject 1 unit subcutaneous before meals and at bedtime Unknown Aspir-[address] 1 evlia quijanoy Unknown Clopidogrel Bisulfate 75mg Tablets 1 by [...] CPT Code Status Date Vaccine Lot # [id number] Given 07/21/2018 Influenza Virus Vaccine, Quadrivalent, Slit Virus, [place] Use 04828 Given 07/20/2017 Influenza Virus Split 3 Yrs And Above For Intramuscular Use Q2037 Given 08/13/2016 Influenza Vaccine (Fluvirin) 3 Years Of Age Or Older 43653 Given 08/13/2016 Influenza Virus Split 3 Yrs And Above For Intramuscular Use [id number] Q2036 Given 07/08/2012 Influenza Vaccine 3 Years Of Age Or Older (Flulaval) 39522 Given 01/06/2012 Pneumococcal PPSV23 Q2036 Given 07/07/2011 Influenza Vaccine 3 Years Of Age Or Older (Flulaval) 41605 Given 06/26/2010 Influenza Vaccine 63727 Given 06/26/2010 Influenza Virus Split 3 Yrs And Above For Intramuscular Use Vital Signs Date Vital Result Comment 01/29/2021 8:13am BP Systolic 110 mmHg BP Diastolic 74 mmHg Heart Rate 94 /min O2 % BldC Oximetry 98 % Body Temperature 96.5 F Height 64 inches 5'4" Weight 194.00 lb BMI (Body Mass Index) 33.3 kg/m2 [place] Body Weight 130 lb Weight 87.998 kg BSA (Body Surface Area) 1.93 m2 12/17/2020 8:18am BP Systolic 110 mmHg BP Diastolic 70 mmHg Heart Rate 99 /min O2 % BldC Oximetry 97 % Body Temperature 96.6 F Height 64 inches 5'4" Weight 189.00 lb BMI (Body Mass Index) 32.4 kg/m2 [place] Body Weight 130 lb Weight 85.730 kg BSA (Body Surface Area) 1.91 m2 Results Test Acquired Date Facility Test Result H/L Range Note Complete Blood Count 07/25/2021 [facility] enter Main Lab [address] [place], [place] [id number] [phone] White Blood Count 11.7 10 High 4.0-10.0 [...] 0.0 % Normal 0-0 Lipid Panel 07/25/2021 [facility] Main Lab [address] [place] [address] [phone] Triglycerides Level 205 mg/dL High <150 Cholesterol Level 125 mg/dL Normal <200 HDL Cholesterol 36 mg/dL Low >40 LDL Cholesterol 48 mg/dL Normal <100 Non-HDL-C 89 mg/dL Normal Cholesterol Risk Ratio 3.472 Normal <5 Basic Metabolic Profile 07/25/2021 [facility] Main Lab [address] [place] [address] [phone] Glucose, Fasting 453 mg/dL Critical high 70-100 [...] mg/dL Normal 8.8-10.2 Laboratory test finding 07/25/2021 [facility] Main Lab [address] [place] [address] [phone] Uric Acid 4.5 mg/dL Normal 3.5-7.2 Magnesium Level 1.9 mg/dL Normal 1.8-2.4 Prostatic Specific Ag Monitor 0.18 NG/ML Normal < 4.00 2 FT4&TSH Panel 07/25/2021 [facility] Main Lab [address] [place] [address] [phone] Thyroid Stimulating Hormone 1.730 uIU/ML Normal 0. 358-3.740 Free T4 1.06 ng/dL Normal 0.76-1.46 Laboratory test finding 07/25/2021 [facility] Main Lab [address] [place] [address] [phone] Free T3 3.0 pg/mL Normal 2.2-4.0 Total 25(Oh) Vitamin D 65.2 NG/ML Normal 30.0-100.0 Ua Routine 07/25/2021 [facility] Lab [address] [place] [address] [phone] Appearance, Urine CLEAR Normal Clear Color, Urine YELLOW Normal Yellow PH,Urine 6.0 units Normal 5.0-9.0 Specific [place] Urine Auto 1.029 Normal 1.002-1.035 Protein, Urine [...] 0 /LPF Normal 0-1 Microalbumin Random 07/25/2021 [facility] Lab [address] [place] [address] [phone] Creatinine, Urine 49.2 mg/dL Normal Malb Urine Siemens 214.0 mg/L Normal Andre/Creat Ratio 434.9 MCG/MG High 0.0-30.0 3 1 Units are mL/min/1.73 m2 Chronic Kidney Disease Staging per NKF: Stage I & II GFR >=60 Normal to Mildly Decreased Stage III GFR 30-59 Moderately Decreased Stage IV GFR 15-29 Severely Decreased Stage V GFR <15 Very Little GFR Left ESRD GFR <15 on INSPECTOR WREATH 2 The PSA assay is performed o n the Siemens [place] analyzer by LOCI sandwich chemiluminescent immunoassay and should not be compared interchangeably with other methods. It should not be used alone as a screening test or diagnosis for the presence or absence of malignant disease. Predictions of disease recurrence should not be based solely on values obtained from serial patient serum values. 3 THE [place] DIABETES ASSOCI ATION STATES THAT MICROALBUMINURIA IS PRESENT IF THE MICROALBUMIN/CREATININE RATIO EXCEEDS 30 MCG/MG. THE THRESHOLD FOR CLINICAL ALBUMINURIA IS REACHED AT 300 MCG/MG. THE CLASSIFICATION OF A PATIENT SHOULD BE BASED UPON AT LEAST 2 OF 3 ABNORMAL RESULTS ON SPECIMENS COLLECTED WITHIN A 3 TO 6 MONTH TIME FRAME. 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 Functional Status Description No Information Available Mental Status Description No Information Available Referrals Refer to Reason for Referral Status Appt Date Radiology/Procedure CT Chest approval Created
--- OUTSIDE RECORDS SUMMARY | 2021-08-16 08:01 | CCD | Continuity of Care Document ---
Author Author Oscar FAY D.O. Organization [place] [address] Phone [phone] Care Team Providers Care Corporate Legal Assistant Name Role Phone Kristopher Rincon M.D. AUTM [phone] AUTM Unavailable Problems Active Problems Provider Date [...] Raymundo Fay D.O. 08/13/2016 Vitamin D (Ergocalciferol) 46513Tqrj Capsules 1 po [id number] Unknown Bupropion HCL ER (SR) 150mg Tablets [...] CPT Code Status Date Vaccine Lot # [id number] Given 07/21/2018 Influenza Virus Vaccine, Quadrivalent, Slit Virus, [place] Use 19078 Given 07/20/2017 Influenza Virus Split 3 Yrs And Above For Intramuscular Use Q2037 Given 08/13/2016 Influenza Vaccine (Fluvirin) 3 Years Of Age Or Older 52802 Given 08/13/2016 Influenza Virus Split 3 Yrs And Above For Intramuscular Use [id number] Q2036 Given 07/08/2012 Influenza Vaccine 3 Years Of Age Or Older (Flulaval) 96582 Given 01/06/2012 Pneumococcal PPSV23 Q2036 Given 07/07/2011 Influenza Vaccine 3 Years Of Age Or Older (Flulaval) 22765 Given 06/26/2010 Influenza Vaccine 89911 Given 06/26/2010 Influenza Virus Split 3 Yrs And Above For Intramuscular Use Vital Signs Date Vital Result Comment 08/01/2021 8:17am BP Systolic 120 mmHg BP Diastolic 70 mmHg Heart Rate 90 /min O2 % BldC Oximetry 99 % Height 64 inches 5'4" Weight 192.00 lb BMI (Body Mass Index) 33.0 kg/m2 [place] Body Weight 130 lb Weight 87.091 kg BSA (Body Surface Area) 1.92 m2 01/29/2021 8:13am BP Systolic 110 mmHg BP Diastolic 74 mmHg Heart Rate 94 /min O2 % BldC Oximetry 98 % Body Temperature 96.5 F Height 64 inches 5'4" Weight 194.00 lb BMI (Body Mass Index) 33.3 kg/m2 [place] Body Weight 130 lb Weight 87.998 kg BSA (Body Surface Area) 1.93 m2 Results Test Acquired Date Facility Test Result H/L Range Note FVL/Eduardo 08/01/2021 [facility] SEE IMAGE FVC-Pred 3.74 L FVC-Pre 3.18 L FVC-%Pred-Pre 84 L FVC-LLN 2.96 L Fev1-Pred 2.81 L Fev1-Pre 1.90 L Fev1-%Pred-Pre 67 L Fev1-LLN 2.15 L Fev6-Pred 3.54 L Fev6-Pre 3.18 L Fev6-%Pred-Pre 89 L Fev6-LLN 2.78 L Lnu1ddm-Yzud 75 % Nhy4pdu-Mkz 60 % Vsz4gjt-%Pred-Pre 79 % Fej4gxb-LAT 66 % Jch2eed-Wtel 95 % Yxy2ldd-Koh 100 % Kpk9pjq-%Pred-Pre 105 % FEFMax-Pred 7.78 L/E/sec FEFMax-Pre 3.39 L/E/sec FEFMax-%Pred-Pre 43 L/E/sec FEFMax-LLN 5.83 L/E/sec Pmu4759-Rvns 2.34 L/E/sec Zjz1787-Pcv 1.18 L/E/sec Sbq3203-%Pred-Pre 50 L/E/sec Kkv7699-AMX 1.00 L/E/sec ExpTime-Pre 6.91 sec Lrc4wac4-Nend 79 % Vlg4wlf4-Lqr 60 % Oaq2pes1-%Pred-Pre 75 % Hyr6gus1-THT 70 % Complete Blood Count 07/25/2021 [facility] Main Lab [address] [place] [address] [phone] White Blood Count 11.7 10 High 4.0-10.0 [...] 0.0 % Normal 0-0 Lipid Panel 07/25/2021 [facility] nter Main Lab [address] [place] [address] [phone] Triglycerides Level 205 mg/dL High <150 Cholesterol Level 125 mg/dL Normal <200 HDL Cholesterol 36 mg/dL Low >40 LDL Cholesterol 48 mg/dL Normal <100 Non-HDL-C 89 mg/dL Normal Cholesterol Risk Ratio 3.472 Normal <5 Basic Metabolic Profile 07/25/2021 [facility] Main Lab [address] [place] [address] [phone] Glucose, Fasting 453 mg/dL Critical high 70-100 [...] mg/dL Normal 8.8-10.2 Laboratory test finding 07/25/2021 [facility] Main Lab [address] [place] [address] [phone] Uric Acid 4.5 mg/dL Normal 3.5-7.2 Magnesium Level 1.9 mg/dL Normal 1.8-2.4 Prostatic Specific Ag Monitor 0.18 NG/ML Normal < 4.00 2 FT4&TSH Panel 07/25/2021 [facility] Main Lab [address] [place] [address] [phone] Thyroid Stimulating Hormone 1.730 uIU/ML Normal 0. 358-3.740 Free T4 1.06 ng/dL Normal 0.76-1.46 Laboratory test finding 07/25/2021 [facility] Lab [address] [place] [address] [phone] Free T3 3.0 pg/mL Normal 2.2-4.0 Total 25(Oh) Vitamin D 65.2 NG/ML Normal 30.0-100.0 Ua Routine 07/25/2021 [facility] Main Lab [address] [place] [address] [phone] Appearance, Urine CLEAR Normal Clear Color, Urine YELLOW Normal Yellow PH,Urine 6.0 units Normal 5.0-9.0 Specific [place] Urine Auto 1.029 Normal 1.002-1.035 Protein, Urine [...] 0 /LPF Normal 0-1 Microalbumin Random 07/25/2021 [facility] nter Main Lab [address] [place], [place] [phone] [phone] Creatinine, Urine 49.2 mg/dL Normal Malb Urine Siemens 214.0 mg/L Normal Andre/Creat Ratio 434.9 MCG/MG High 0.0-30.0 3 1 Units are mL/min/1.73 m2 Chronic Kidney Disease Staging per NKF: Stage I & II GFR >=60 Normal to Mildly Decreased Stage III GFR 30-59 Moderately Decreased Stage IV GFR 15-29 Severely Decreased Stage V GFR <15 Very Little GFR Left ESRD GFR <15 on THERAPY SITE COORDINATOR 2 The PSA assay is performed o n the Siemens [place] analyzer by LOCI sandwich chemiluminescent immunoassay and should not be compared interchangeably with other methods. It should not be used alone as a screening test or diagnosis for the presence or absence of malignant disease. Predictions of disease recurrence should not be based solely on values obtained from serial patient serum values. 3 THE [place] DIABETES ASSOCI ATION STATES THAT MICROALBUMINURIA IS [...] Available Encounters Description No Information Available Assessments Date Code Description Provider 08/01/2021 B39.2 Pulmonary histoplasmosis capsula ti, unspecified Magalis Maria.OJaylyn 08/01/2021 R91.8 Other nonspecific abnormal findi ng of lung field Raymundo Fay D.O. 08/01/2021 F17.218 Nicotine dependence, cigarettes, with other nicotine-induced Magalis Maria.OJaylyn 08/01/2021 R49.8 Hoarse Raymundo Fay D.O. Plan of Treatment Future Appointment(s):* 01/31/2022 8:30 am - Raymundo Fay D.O. at 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 Functional Status Description No Information Available Mental Status Description No Information Available Referrals Refer to Reason for Referral Status Appt Date Radiology/Procedure CT Chest approval Created
--- OUTSIDE RECORDS SUMMARY | 2021-08-16 08:01 | CCD | Continuity of Care Document ---
Author Author Oscar FAY D.O. [place] [address] Phone [phone] Care Team Providers Care Tax Consultant Name Role Phone Kristopher Rincon M.D. AUTM [phone] AUTM Unavailable Problems Active Problems Provider Date [...] Raymundo Fay D.O. 08/13/2016 Vitamin D (Ergocalciferol) [id number] Capsules 1 po [id number] Unknown Jardiance 25mg Tablets one tab by mouth daily Unknown Bupropion HCL ER (SR) 150mg Tablets ER 12HR 1 by mouth every day Unknown 000 Simvastatin 40mg Tablets one tab by mouth daily Unknown Trulicity 1.5mg/0.5ML Solution Pen -Inject inject 1.5mg weekly Unknown Humalog Kwikpen 100U nit/ML Solution Pen-Inject 1 unit subcutaneous before meals and at bedtime Unknown Aspir-[address] 1 elvia quijanoy Unknown Clopidogrel Bisulfate 75mg Tablets 1 [...] CPT Code Status Date Vaccine Lot # [id number] Given 07/21/2018 Influenza Virus Vaccine, Quadrivalent, Slit Virus, Im Use 14585 Given 07/20/2017 Influenza Virus Split 3 Yrs And Above For Intramuscular Use Q2037 Given 08/13/2016 Influenza Vaccine (Fluvirin) 3 Years Of Age Or Older 42374 Given 08/13/2016 Influenza Virus Split 3 Yrs And Above For Intramuscular Use [id number] Q2036 Given 07/08/2012 Influenza Vaccine 3 Years Of Age Or Older (Flulaval) 76055 Given 01/06/2012 Pneumococcal PPSV23 Q2036 Given 07/07/2011 Influenza Vaccine 3 Years Of Age Or Older (Flulaval) 09308 Given 06/26/2010 Influenza Vaccine 92552 Given 06/26/2010 Influenza Virus Split 3 Yrs And Above For Intramuscular Use Vital Signs Date Vital Result Comment 01/29/2021 8:13am BP Systolic 110 mmHg BP Diastolic 74 mmHg Heart Rate 94 /min O2 % BldC Oximetry 98 % Body Temperature 96.5 F Height 64 inches 5'4" Weight 194.00 lb BMI (Body Mass Index) 33.3 kg/m2 [place] Body Weight 130 lb Weight 87.998 kg BSA (Body Surface Area) 1.93 m2 12/17/2020 8:18am BP Systolic 110 mmHg BP Diastolic 70 mmHg Heart Rate 99 /min O2 % BldC Oximetry 97 % Body Temperature 96.6 F Height 64 inches 5'4" Weight 189.00 lb BMI (Body Mass Index) 32.4 kg/m2 [place] Body Weight 130 lb Weight 85.730 kg BSA (Body Surface Area) 1.91 m2 Results Test Acquired Date Facility Test Result H/L Range Note Complete Blood Count 07/25/2021 [facility] Main Lab [address], [place] [id number] [phone] White Blood Count 11.7 10 High 4.0-10.0 [...] % Normal 0-0 Lipid Panel 07/25/2021 [facility] Lab [address] [place] [address] [phone] Triglycerides Level 205 mg/dL High <150 Cholesterol Level 125 mg/dL Normal <200 HDL Cholesterol 36 mg/dL Low >40 LDL Cholesterol 48 mg/dL Normal <100 Non-HDL-C 89 mg/dL Normal Cholesterol Risk Ratio 3.472 Normal <5 Basic Metabolic Profile 07/25/2021 [facility] Main Lab [address] [place] [address] [phone] Glucose, Fasting 453 mg/dL Critical high 70-100 [...] mg/dL Normal 8.8-10.2 Laboratory test finding 07/25/2021 [facility] Main Lab [address] [place] [address] [phone] Uric Acid 4.5 mg/dL Normal 3.5-7.2 Magnesium Level 1.9 mg/dL Normal 1.8-2.4 Prostatic Specific Ag Monitor 0.18 NG/ML Normal < 4.00 2 FT4&TSH Panel 07/25/2021 [facility] [address] [place] [address] [phone] Thyroid Stimulating Hormone 1.730 uIU/ML Normal 0. 358-3.740 Free T4 1.06 ng/dL Normal 0.76-1.46 Laboratory test finding 07/25/2021 [facility] Main Lab [address] [place] [address] [phone] Free T3 3.0 pg/mL Normal 2.2-4.0 Total 25(Oh) Vitamin D 65.2 NG/ML Normal 30.0-100.0 Ua Routine 07/25/2021 [facility] Lab [address] [place] [address] [phone] Appearance, Urine CLEAR Normal Clear Color, Urine YELLOW Normal Yellow PH,Urine 6.0 units Normal 5.0-9.0 Specific [place] Urine Auto 1.029 Normal 1.002-1.035 Protein, Urine [...] 0 /LPF Normal 0-1 Microalbumin Random 07/25/2021 [facility] Lab [address] [place] [address] [phone] Creatinine, Urine 49.2 mg/dL Normal Malb Urine Siemens 214.0 mg/L Normal Andre/Creat Ratio 434.9 MCG/MG High 0.0-30.0 3 1 Units are mL/min/1.73 m2 Chronic Kidney Disease Staging per NKF: Stage I & II GFR >=60 Normal to Mildly Decreased Stage III GFR 30-59 Moderately Decreased Stage IV GFR 15-29 Severely Decreased Stage V GFR <15 Very Little GFR Left ESRD GFR <15 on DICE DEALER 2 The PSA assay is performed o n the Siemens Burton analyzer by LOCI sandwich chemiluminescent immunoassay and should not be compared interchangeably with other methods. It should not be used alone as a screening test or diagnosis for the presence or absence of malignant disease. Predictions of disease recurrence should not be based solely on values obtained from serial patient serum values. 3 THE [place] [employer] ATION STATES THAT MICROALBUMINURIA IS [...]
--- OUTSIDE RECORDS SUMMARY | 2021-08-16 08:01 | CCD ---
Continuity of Care Document (CCD) Created on: 08/01/2021 Oscar Acosta External Reference #: [id number] : [id number] Sex: Male Author Author Oscar FAY D.O. [place] [address] Phone [phone] Care Team Providers Care Internal Carver Name Role Phone Kristopher Rincon M.D. AUTM [phone] AUTM Unavailable Problems Active Problems Provider Date [...] Raymundo Fay D.O. 08/13/2016 Vitamin D (Ergocalciferol) [id number] Capsules 1 po [id number] Unknown Bupropion HCL ER (SR) 150mg Tablets [...] CPT Code Status Date Vaccine Lot # [id number] Given 07/21/2018 Influenza Virus Vaccine, Quadrivalent, Slit Virus, Im Use 01870 Given 07/20/2017 Influenza Virus Split 3 Yrs And Above For Intramuscular Use Q2037 Given 08/13/2016 Influenza Vaccine (Fluvirin) 3 Years Of Age Or Older 43667 Given 08/13/2016 Influenza Virus Split 3 Yrs And Above For Intramuscular Use [id number] Q2036 Given 07/08/2012 Influenza Vaccine 3 Years Of Age Or Older (Flulaval) 05108 Given 01/06/2012 Pneumococcal PPSV23 Q2036 Given 07/07/2011 Influenza Vaccine 3 Years Of Age Or Older (Flulaval) 20054 Given 06/26/2010 Influenza Vaccine 39009 Given 06/26/2010 Influenza Virus Split 3 Yrs And Above For Intramuscular Use Vital Signs Date Vital Result Comment 08/01/2021 8:17am BP Systolic 120 mmHg BP Diastolic 70 mmHg Heart Rate 90 /min O2 % BldC Oximetry 99 % Height 64 inches 5'4" Weight 192.00 lb BMI (Body Mass Index) 33.0 kg/m2 [place] Body Weight 130 lb Weight 87.091 kg BSA (Body Surface Area) 1.92 m2 01/29/2021 8:13am BP Systolic 110 mmHg BP Diastolic 74 mmHg Heart Rate 94 /min O2 % BldC Oximetry 98 % Body Temperature 96.5 F Height 64 inches 5'4" Weight 194.00 lb BMI (Body Mass Index) 33.3 kg/m2 [place] Body Weight 130 lb Weight 87.998 kg BSA (Body Surface Area) 1.93 m2 Results Test Acquired Date Facility Test Result H/L Range Note FVL/Eduardo 08/01/2021 [facility] SEE IMAGE FVC-Pred 3.74 L FVC-Pre 3.18 L FVC-%Pred-Pre 84 L FVC-LLN 2.96 L Fev1-Pred 2.81 L Fev1-Pre 1.90 L Fev1-%Pred-Pre 67 L Fev1-LLN 2.15 L Fev6-Pred 3.54 L Fev6-Pre 3.18 L Fev6-%Pred-Pre 89 L Fev6-LLN 2.78 L Zrz9xcy-Rsha 75 % Rco5ieq-Sjk 60 % Ecw8esn-%Pred-Pre 79 % Icr5aga-ADA 66 % Idc9dch-Vqwr 95 % Tyh2jpt-Xal 100 % Juc4quu-%Pred-Pre 105 % FEFMax-Pred 7.78 L/E/sec FEFMax-Pre 3.39 L/E/sec FEFMax-%Pred-Pre 43 L/E/sec FEFMax-LLN 5.83 L/E/sec Bhy0315-Blzu 2.34 L/E/sec Fzt4770-Dsn 1.18 L/E/sec Zcd9737-%Pred-Pre 50 L/E/sec Zdv3875-UZR 1.00 L/E/sec ExpTime-Pre 6.91 sec Ahg2zdy0-Gaxq 79 % Iqk6tjn3-Bnw 60 % Jtb0vmr6-%Pred-Pre 75 % Tjr8grj6-QMY 70 % Complete Blood Count 07/25/2021 [facility] Main Lab [address] [place] [address] [phone] White Blood Count 11.7 10 High 4.0-10.0 [...] 0.0 % Normal 0-0 Lipid Panel 07/25/2021 [facility] Main Lab [address] [place] [address] [phone] Triglycerides Level 205 mg/dL High <150 Cholesterol Level 125 mg/dL Normal <200 HDL Cholesterol 36 mg/dL Low >40 LDL Cholesterol 48 mg/dL Normal <100 Non-HDL-C 89 mg/dL Normal Cholesterol Risk Ratio 3.472 Normal <5 Basic Metabolic Profile 07/25/2021 [facility] Main Lab [address] [place] [address] [phone] Glucose, Fasting 453 mg/dL Critical high 70-100 [...] mg/dL Normal 8.8-10.2 Laboratory test finding 07/25/2021 [facility] Main Lab [address] [place] [address] [phone] Uric Acid 4.5 mg/dL Normal 3.5-7.2 Magnesium Level 1.9 mg/dL Normal 1.8-2.4 Prostatic Specific Ag Monitor 0.18 NG/ML Normal < 4.00 2 FT4&TSH Panel 07/25/2021 [facility] Main Lab [address] [place] [address] [phone] Thyroid Stimulating Hormone 1.730 uIU/ML Normal 0. 358-3.740 Free T4 1.06 ng/dL Normal 0.76-1.46 Laboratory test finding 07/25/2021 [facility] Lab [address] [place] [address] [phone] Free T3 3.0 pg/mL Normal 2.2-4.0 Total 25(Oh) Vitamin D 65.2 NG/ML Normal 30.0-100.0 Ua Routine 07/25/2021 [facility] Main Lab [address] [place] [address] [phone] Appearance, Urine CLEAR Normal Clear Color, Urine YELLOW Normal Yellow PH,Urine 6.0 units Normal 5.0-9.0 Specific [place] Urine Auto 1.029 Normal 1.002-1.035 Protein, Urine [...] 0 /LPF Normal 0-1 Microalbumin Random 07/25/2021 [facility] Main Lab [address] [place] [address] [phone] Creatinine, Urine 49.2 mg/dL Normal Malb Urine Siemens 214.0 mg/L Normal Andre/Creat Ratio 434.9 MCG/MG High 0.0-30.0 3 1 Units are mL/min/1.73 m2 Chronic Kidney Disease Staging per NKF: Stage I & II GFR >=60 Normal to Mildly Decreased Stage III GFR 30-59 Moderately Decreased Stage IV GFR 15-29 Severely Decreased Stage V GFR <15 Very Little GFR Left ESRD GFR <15 on VOLUNTEER SERVICES ASSISTANT 2 The PSA assay is performed o n the Siemens [place] analyzer by LOCI sandwich chemiluminescent immunoassay and should not be compared interchangeably with other methods. It should not be used alone as a screening test or diagnosis for the presence or absence of malignant disease. Predictions of disease recurrence should not be based solely on values obtained from serial patient serum values. 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 08/01/2021 R91.8 Other nonspecific abnormal findi ng of lung field Magalis Maria.O. 08/01/2021 F17.218 Nicotine dependence, cigarettes, with other nicotine-induced Raymundo Fay D.O. Plan of Treatment No Information Available Functional Status Description No Information Available Mental Status Description No Information Available Referrals Refer to Dr Reason for Referral Status Appt Date Radiology/Procedure CT Chest approval Created
--- OUTSIDE RECORDS SUMMARY | 2021-08-16 08:02 | CCD ---
Author Author [facility] Organization [facility] Address Unknown Phone Unavailable Care Team Providers Care Car Inspector Name Role Phone Nan, Judi Dukes MD Unavailable Unavailable Nan, Judi Dukes MD Unavailable Unavailable Nan, Judi Dukes MD Unavailable Unavailable Nan, Judi Dukes MD Unavailable Unavailable Nan, Judi Dukes MD Unavailable Unavailable Nan, Judi Dukes MD Unavailable Unavailable Nan, Judi Dukes MD Unavailable Unavailable Nan, Judi Dukes MD Unavailable Unavailable Nan, Judi Dukes MD Unavailable Unavailable Nan, Judi Dukes MD Unavailable Unavailable Nan, Judi Dukes MD Unavailable Unavailable Nan, Judi Dukes MD Unavailable Unavailable Nan, Judi Dukes MD Unavailable Unavailable Nan, Judi Dukes MD Unavailable Unavailable Nan, Judi Dukes MD Unavailable Unavailable Nan, Judi Dukes MD Unavailable Unavailable Nan, Judi Dukes MD Unavailable Unavailable Nan, Judi Dukes MD Unavailable Unavailable Nan, Judi Dukes MD Unavailable Unavailable Nan, Judi Dukes MD Unavailable Unavailable Nan, Judi Dukes MD Unavailable Unavailable Nan, Judi Dukes MD Unavailable Unavailable Nan, Judi Dukes MD Unavailable Unavailable Nan, Judi Dukes MD Unavailable Unavailable Nan, Judi Dukes MD Unavailable Unavailable Nan, Judi Dukes MD Unavailable Unavailable Nan, Judi Dukes MD Unavailable Unavailable Nan, Judi Dukes MD Unavailable Unavailable Nan, Judi Dukes MD Unavailable Unavailable Nan, Judi Dukes MD Unavailable Unavailable Nan, Judi Dukes MD Unavailable Unavailable Nan, Judi Dukes MD Unavailable Unavailable Nan, Judi Dukes MD Unavailable Unavailable Nan, Judi Dukes MD Unavailable Unavailable Nan, Judi Dukes MD Unavailable Unavailable Nan, Judi Dukes MD Unavailable Unavailable Nan, Judi Dukes MD Unavailable Unavailable Nan, Judi Dukes MD Unavailable Unavailable Nan, Judi Dukes MD Unavailable Unavailable Nan, Judi Dukes MD Unavailable Unavailable Nan, Judi Dukes MD Unavailable Unavailable Nan, Judi Dukes MD Unavailable Unavailable Nan, Judi Dukes MD Unavailable Unavailable Nan, Judi Dukes MD Unavailable Unavailable Nan, Judi Dukes MD Unavailable Unavailable Nan, Judi Dukes MD Unavailable Unavailable Nan, Judi Dukes MD Unavailable Unavailable Nan, Judi Dukes MD Unavailable Unavailable Nna, Judi Dukes MD Unavailable Unavailable Nan, Judi Dukes MD Unavailable Unavailable Nan, Judi Dukes MD Unavailable Unavailable Nan, Judi Dukes MD Unavailable Unavailable Nan, Judi Dukes MD Unavailable Unavailable Nan, Judi Dukes MD Unavailable Unavailable Nan, Judi Dukes MD Unavailable Unavailable Nan, Judi Dukes MD Unavailable Unavailable Nan, Judi Dukes MD Unavailable Unavailable Nan, Judi Dukes MD Unavailable Unavailable Nan, Judi Dukes MD Unavailable Unavailable Nan, Judi Dukes MD Unavailable Unavailable Nan, Judi Dukes MD Unavailable Unavailable Nan, Judi Dukes MD Unavailable Unavailable Nan, Judi Dukes MD Unavailable Unavailable Nan, Judi Dukes MD Unavailable Unavailable Nan, Judi Dukes MD Unavailable Unavailable Nan, Judi Dukes MD Unavailable Unavailable Nan, Judi Dukes MD Unavailable Unavailable Nan, Judi Dukes MD Unavailable Unavailable Nan, Judi Dukes MD Unavailable Unavailable Nan, Judi Dukes MD Unavailable Unavailable Nan, Judi Dukes MD Unavailable Unavailable Nan, Judi Dukes MD Unavailable Unavailable Nan, Judi Dukes MD Unavailable Unavailable Nan, Judi Dukes MD Unavailable Unavailable Nan, Judi Dukes MD Unavailable Unavailable Nan, Judi Dukes MD Unavailable Unavailable Nan, Judi Dukes MD Unavailable Unavailable SEARS, A KHRIS DO Unavailable Unavailable SEARS, A KHRIS DO Unavailable Unavailable SEARS, A KHRIS DO Unavailable Unavailable SEARS, A KHRIS DO Unavailable Unavailable SEARS, A KHRIS DO Unavailable Unavailable SEARS, A KHRIS DO Unavailable Unavailable SEARS, A KHRIS DO Unavailable Unavailable SEARS, A KHRIS DO Unavailable Unavailable SEARS, A KHRIS DO Unavailable Unavailable SEARS, A KHRIS DO Unavailable Unavailable SEARS, A KHRIS DO Unavailable Unavailable SEARS, A KHRIS DO Unavailable Unavailable SEARS, A KHRIS DO Unavailable Unavailable SEARS, A KHRIS DO Unavailable Unavailable SEARS, A KHRIS DO Unavailable Unavailable SEARS, A KHRIS DO Unavailable Unavailable SEARS, A KHRIS DO Unavailable Unavailable SEARS, A KHRIS DO Unavailable Unavailable SEARS, A KHRIS DO Unavailable Unavailable SEARS, A KHRIS DO Unavailable Unavailable SEARS, A KHRIS DO Unavailable Unavailable SEARS, A KHRIS DO Unavailable Unavailable SEARS, A KHRIS DO Unavailable Unavailable SEARS, A KHRIS DO Unavailable Unavailable SEARS, A KHRIS DO Unavailable Unavailable SEARS, A KHRIS DO Unavailable Unavailable SEARS, A KHRIS DO Unavailable Unavailable SEARS, A KHRIS DO Unavailable Unavailable SEARS, A KHRIS DO Unavailable Unavailable SEARS, A KHRIS DO Unavailable Unavailable SEARS, A KHRIS DO Unavailable Unavailable SEARS, A KHRIS DO Unavailable Unavailable SEARS, A KHRIS DO Unavailable Unavailable SEARS, A KHRIS DO Unavailable Unavailable SEARS, A KHRIS DO Unavailable Unavailable SEARS, A KHRIS DO Unavailable Unavailable SEARS, A KHRIS DO Unavailable Unavailable SEARS, A KHRIS DO Unavailable Unavailable SEARS, A KHRIS DO Unavailable Unavailable SEARS, A KHRIS DO Unavailable Unavailable SEARS, A KHRIS DO Unavailable Unavailable SEARS, A KHRIS DO Unavailable Unavailable SEARS, A KHRIS DO Unavailable Unavailable SEARS, A KHRIS DO Unavailable Unavailable SEARS, A KHRIS DO Unavailable Unavailable SEARS, A KHRIS DO Unavailable Unavailable SEARS, A KHRIS DO Unavailable Unavailable SEARS, A KHRIS DO Unavailable Unavailable Yegiazarov, Y Georgiy Unavailable Unavailable Yegiazarov, Y Georgiy Unavailable Unavailable Yegiazarov, Y Georgiy Unavailable Unavailable Yegiazarov, Y Georgiy Unavailable Unavailable Yegiazarov, Y Georgiy Unavailable Unavailable Yegiazarov, Y Georgiy Unavailable Unavailable Yegiazarov, Y Georgiy Unavailable Unavailable Yegiazarov, Y Georgiy Unavailable Unavailable Yegiazarov, Y Georgiy Unavailable Unavailable Yegiazarov, Y Georgiy Unavailable Unavailable Yegiazarov, Y Georgiy Unavailable Unavailable Yegiazarov, Y Georgiy Unavailable Unavailable Yegiazarov, Y Georgiy Unavailable Unavailable Yegiazarov, Y Georgiy Unavailable Unavailable Yegiazarov, Y Georgiy Unavailable Unavailable Yegiazarov, Y Georgiy Unavailable Unavailable Yegiazarov, Y Georgiy Unavailable Unavailable Yegiazarov, Y Georgiy Unavailable Unavailable Yegiazarov, Y Georgiy Unavailable Unavailable Yegiazarov, Y Georgiy Unavailable Unavailable Yegiazarov, Y Georgiy Unavailable Unavailable Yegiazarov, Y Georgiy Unavailable Unavailable Yegiazarov, Y Georgiy Unavailable Unavailable Yegiazarov, Y Georgiy Unavailable Unavailable Yegiazarov, Y Georgiy Unavailable Unavailable Yegiazarov, Y Georgiy Unavailable Unavailable Yegiazarov, Y Georgiy Unavailable Unavailable Yegiazarov, Y Georgiy Unavailable Unavailable Radha Atkins MD Unavailable Unavailable Radha Atkins MD Unavailable Unavailable Radha Atkins MD Unavailable Unavailable Radha Atkins MD Unavailable Unavailable Radha Atkins MD Unavailable Unavailable Radha Atkins MD Unavailable Unavailable Radha Atkins MD Unavailable Unavailable Radha Atkins MD Unavailable Unavailable Radha Atkins MD Unavailable Unavailable Radha Atkins MD Unavailable Unavailable Radha Atkins MD Unavailable Unavailable Radha Atkins MD Unavailable Unavailable Radha Atkins MD Unavailable Unavailable Radha Atkins MD Unavailable Unavailable Radha Atkins MD Unavailable Unavailable Radha Atkins MD Unavailable Unavailable Radha Atkins MD Unavailable Unavailable Radha Atkins MD Unavailable Unavailable Radha Atkins MD Unavailable Unavailable Radha Atkins MD Unavailable Unavailable Radha Atkins MD Unavailable Unavailable Radha Atkins MD Unavailable Unavailable Radha Atkins MD Unavailable Unavailable Radha Atkins MD Unavailable Unavailable Radha Atkins MD Unavailable Unavailable Radha Atkins MD Unavailable Unavailable Radha Atkins MD Unavailable Unavailable Radha Atkins MD Unavailable Unavailable Radha Atkins MD Unavailable Unavailable Radha Atkins MD Unavailable Unavailable Radha Atkins MD Unavailable Unavailable Radha Atkins MD Unavailable Unavailable Radha Atkins MD Unavailable Unavailable Radha Atkins MD Unavailable Unavailable Radha Atkins MD Unavailable Unavailable Radha Atkins MD Unavailable Unavailable Radha Atkins MD Unavailable Unavailable Radha Atkins MD Unavailable Unavailable Radha Atkins MD Unavailable Unavailable Radha Atkins MD Unavailable Unavailable Radha Atkins MD Unavailable Unavailable Radha Atkins MD Unavailable Unavailable Radha Atkins MD Unavailable Unavailable Radha Atkins MD Unavailable Unavailable Radha Atkins MD Unavailable Unavailable Radha Atkins MD Unavailable Unavailable Radha Atkins MD Unavailable Unavailable Radha Atkins MD Unavailable Unavailable Radha Atkins MD Unavailable Unavailable Radha Atkins MD Unavailable Unavailable Radha Atkins MD Unavailable Unavailable Radha Atkins MD Unavailable Unavailable Radha Atkins MD Unavailable Unavailable Radha Atkins MD Unavailable Unavailable Radha Atkins MD Unavailable Unavailable Radha Atkins MD Unavailable Unavailable Radha Atkins MD Unavailable Unavailable Radha Atkins MD Unavailable Unavailable Radha Atkins MD Unavailable Unavailable Radha Atkins MD Unavailable Unavailable Radha Atkins MD Unavailable Unavailable Radha Atkins MD Unavailable Unavailable Radha Atkins MD Unavailable Unavailable Radha Atkins MD Unavailable Unavailable Radha Atkins MD Unavailable Unavailable Radha Atkins MD Unavailable Unavailable Radha Atkins MD Unavailable Unavailable Radha Atkins MD Unavailable Unavailable Radha Atkins MD Unavailable Unavailable Radha Atkins MD Unavailable Unavailable Radha Atkins MD Unavailable Unavailable Radha Atkins MD Unavailable Unavailable Radha Atkins MD Unavailable Unavailable Radha Atkins MD Unavailable Unavailable Radha Atkins MD Unavailable Unavailable Radha Atkins MD Unavailable Unavailable Radha Atkins MD Unavailable Unavailable Radha Atkins MD Unavailable Unavailable Radha Atkins MD Unavailable Unavailable [place], Mariae Diane GRUBBER Unavailable Unavailable Ned, Mariae Gilmanton GRUBBER Unavailable Unavailable Ned, Mariae Diane GRUBBER Unavailable Unavailable [place], Mariae Gilmanton GRUBBER Unavailable Unavailable [place], Mariae Gilmanton GRUBBER Unavailable Unavailable [place], Mariae Gilmanton GRUBBER Unavailable Unavailable Ned, Mariae Diane GRUBBER Unavailable Unavailable [place], Mariae Diane GRUBBER Unavailable Unavailable [place], Mariae Diane GRUBBER Unavailable Unavailable Ned, Mariae Gilmanton GRUBBER Unavailable Unavailable Ned, Mariae Gilmanton GRUBBER Unavailable Unavailable [place], Mariae Gilmanton GRUBBER Unavailable Unavailable Ned, Mariae Diane GRUBBER Unavailable Unavailable [place], Mariae Diane GRUBBER Unavailable Unavailable [place], Mariae Diane GRUBBER Unavailable Unavailable [place], Mariae Gilmanton GRUBBER Unavailable Unavailable Ned, Mariae Diane GRUBBER Unavailable Unavailable Natty Bray MD Unavailable Unavailable Natty Bray MD Unavailable Unavailable Natty Bray MD Unavailable Unavailable Natty Bray MD Unavailable Unavailable Natty Bray MD Unavailable Unavailable Natty Bray MD Unavailable Unavailable Natty Bray MD Unavailable Unavailable Natty Bray MD Unavailable Unavailable Natty Bray MD Unavailable Unavailable Natty Bray MD Unavailable Unavailable Natty Bray MD Unavailable Unavailable Natty Bray MD Unavailable Unavailable Natty Bray MD Unavailable Unavailable Natty Bray MD Unavailable Unavailable Natty Bray MD Unavailable Unavailable Natty Bray MD Unavailable Unavailable Natty Bray MD Unavailable Unavailable Asa, Natty MD Unavailable Unavailable Asa, Natty MD Unavailable Unavailable Asa, Natty MD Unavailable Unavailable Asa, Natty MD Unavailable Unavailable Asa, Natty MD Unavailable Unavailable Asa, Natty MD Unavailable Unavailable Asa, Natty MD Unavailable Unavailable Asa, Natty MD Unavailable Unavailable Asa, Natty MD Unavailable Unavailable Asa, Natty MD Unavailable Unavailable Asa, Natty MD Unavailable Unavailable Asa, Natty MD Unavailable Unavailable Asa, Natty MD Unavailable Unavailable Asa, Natty MD Unavailable Unavailable Asa, Natty MD Unavailable Unavailable Asa, Natty MD Unavailable Unavailable Asa, Natty MD Unavailable Unavailable DEE DEERENAY BHUPENDRA Bhatti Unavailable Unavailable Davonte KILPATRICK Unavailable Unavailable Re-disclosure Warning The records that you are about to access may contain information from federally-assisted alcohol or drug abuse programs. If such information is present, then the following federally mandated warning applies: This information has been disclosed to you from records protected by federal confidentiality rules (42 CFR part 2). The federal rules prohibit you from making any further disclosure of this information unless further disclosure is expressly permitted by the written consent of the person to whom it pertains or as otherwise permitted by 42 CFR part 2. A general authorization for the release of medical or other information is NOT sufficient for this purpose. The Federal rules restrict any use of the information to criminally investigate or prosecute any alcohol or drug abuse patient.The records that you are about to access may contain highly sensitive health information, the redisclosure of which is protected by Article 27-F of the [facility] Public Health law. If you continue you may have access to information: Regarding HIV / AIDS; Provided by facilities licensed or operated by the [facility] Office of Mental Health; or Provided by the [facility] Office for People With Developmental Disabilities. If such information is present, then the following [facility] mandated warning applies: This information has been disclosed to you from confidential records which are protected by state law. State law prohibits you from making any further disclosure of this information without the specific written consent of the person to whom it pertains, or as otherwise permitted by law. Any unauthorized further disclosure in violation of state law may result in a fine or retirement sentence or both. A general authorization for the release of medical or other information is NOT sufficient authorization for further disc losure. Family History Family Member Name Family Member Gender Family Member Status Date o f Status Description Data Source(s) Unknown Unknown Problem [facility] ([facility]) Bone father Unknown Female Problem [facility] ([facility] ) Encounters Encounter Providers Location Date Indications Data Source(s ) Outpatient Attender: Moo Presley 06/13/2022 12:00:0 0 AM [facility] Outpatient Attender: Natty Bray MD 03/13/2022 12:00:00 A M [facility] Outpatient Attender: Moo Presley 11/28/2021 12:00:[address] [facility] Outpatient Attender: Moo Presley [id number] 12:00:00 AM [facility] 08/12/2021 12:37:10 PM [facility] Outpatient Attender: Natty Bray MD 05/10/2021 12:00:00 A M [facility] Outpatient Attender: KHRIS Styles/Alie/Nando/Reindl 01/29/2021 08:30:00 AM EDT [facility] ([facility]) Outpatient Attender: Moo Presley [id number] 11/2020 12:00:00 AM EDT - 01/28/2021 01:03:41 PM EDT Type 2 diabetes mellitus with hyperglycemia [facility] Type 2 diabetes mellitus with hyperglyce farheen <td ID="encounterTypeDescriptionID0">EXT ENDED VISIT</td><td>Diane Marino GRUBBER</td><td>Family Medicine [facility]</td><td>01/02/2021</td><td>10:09AM</td><td>10/03/2020 11:59PM</td><td><content ID="encounterDiagnosisID0-0">Diarrhea</content>, <content ID="encounterDiagnosisID0-1">Functional Murmur</content>, <content ID="encounterDiagnosisID0-2">Diabetes Mellitus Type 2</content>, <content ID="encounterDiagnosisID0-3">Essential Hypertension Benign</content>, <content ID="encounterDiagnosisID0-4">Hyperlipidemia</content></td>Outpatient Attender: Diane Marino NP [facility], 01/02/2021 10:09:00 AM EDT - 10/03/2020 11:59:00 PM EST Functional MurmurDiarrheaHyperlipidemiaE ssential Hypertension BenignDiabetes Mellitus Type 2 ANITA ([facility]) Functional Murmur Diarrhea Hyperlipidemia Essential Hypertension Benign Diabetes Mellitus Type 2 Outpatient Admitter: KHRIS Robleserrer: KHRIS FAY DO 12/19/2020 12:00:00 AM EDT Other nonspecific abnormal finding of lung field [facility] Other nonspecific abnormal finding of patrick ng field Outpatient Attender: KHRIS FAY DO [place]/Nando/Reindl 12/17/2020 08:30:00 AM EDT [facility] Outpatient Attender: KHRIS FAY DO [place]/Nanod/Reindl 11/21/2020 08:30:00 AM EST [facility] Outpatient Attender: Natty Bray MD [id number] 10/26/2020 12:0 0:00 AM EST Type 2 diabetes mellitus with hyperglycemia [facility] Type 2 diabetes mellitus with hyperglyce [facility] Outpatient<td ID="encounterTypeDescripti onID1">[Patient Encounter]</td><td>Roseline Montana MD</td><td></td><td>12/13/2020</td><td>10/03/2020 4:17PM</td><td>10/03/2020 11:59PM</td><td></td> Attender: Roseline Montana MD 10/03/2020 04:17:00 PM EST - 10/03/2020 11:59:00 PM EST ANITA ([facility]) Outpatient<td ID="encounterTypeDescripti onID2">E-VISIT E/M</td><td>Diane Marino NP</td><td>Family [facility]</td><td>10/03/2020</td><td>10:44AM</td><td>11:50AM</td><td><content ID="encounterDiagnosisID2-0">Diabetes Mellitus Type 2</content>, <content ID="encounterDiagnosisID2-1">Essential Hypertension Benign</content>, <content ID="encounterDiagnosisID2-2">Chronic Obstructive Pulmonary Disease</content>, <content ID="encounterDiagnosisID2-3">Hyperlipidemia</content></td> Attender: Diane Marino NP [facility] 10/03/2020 10:44:00 AM EST - 10/03/2020 11:50:00 AM EST Chronic Obstructive Pulmonary DiseaseHyperlipidemiaEssential Hypertension BenignDiabetes Mellitus Type 2 JACK ([facility]) Chronic Obstructive Pulmonary Disease Hyperlipidemia Essential Hypertension Benign Diabetes Mellitus Type 2 Outpatient Attender: AMINTA KILPATRICKReferrer: Natty Bray MD [id number] 09/12/2020 12:00:00 AM EST - 09/12/2020 03:20:[address] [facility] Education Office Visit Attender: Fani Atkins MD Main office - [facility] 09/06/2020 10:45:00 AM EST [facility] ([facility]sie ) Outpatient<td ID="encounterTypeDescripti onID3">EXTENDED VISIT</td><td>Diane Marino NP</td><td>[facility]</td><td>08/30/2020</td><td>9:53AM</td><td>10:38AM</td><td><content ID="encounterDiagnosisID3-0">Diabetes Mellitus Type 2 with Manifestations</content></td> [facility] 09:53:00 AM EST - 08/30/2020 10:38:00 AM ES T Diabetes Mellitus Type 2 with ManifestationsDiabetes Mellitus Type 2 with Manifestations JACK ([facility]) Diabetes Mellitus Type 2 with Manifestat ions Diabetes Mellitus Type 2 with Manifestat ions Outpatient Attender: BHUPENDRA STATON V 07/30/2020 12:00:0 0 AM EST [facility] Outpatient Attender: Moo Thomasonkike [id number] 07/02/2020 1 2:00:00 AM EDT Type 2 diabetes mellitus with hyperglycemia [facility] Type 2 diabetes mellitus with hyperglyce farheen Immunizations Vaccine Date Status Description Data Source(s) COVID-19 VACCINE Xtone 12/26/2020 12:00:00 AM EDT completed [facility] Vaccine Series Complete: YESThis Data wa s Submitted to [facility] Via [employer]. COVID-19 VACCINE Xtone 12/05/2020 12:00:00 AM EST completed [facility] Vaccine Series Complete: NOThis Data was Submitted to [facility] Via [employer]. Medications Medication Brand Name Start Date Product Form Dose Route Admi nistrative Instructions Pharmacy Instructions Status Indications Reaction Description Data Source(s) Trulicity 3 MG/0.5ML Subcutaneous Solution Pen-injecto r (Dulaglutide) 8618-1654-46 01/28/2021 12:00:00 AM EDT 3 mg Subcutaneous active Inject 3 mg into the skin once a week [facility] 7 ACTUAT umeclidinium 0.0625 MG/ACTUAT D ry Powder Inhaler [Incruse] Incruse Ellipta 62.5 MCG/INH Inhalation Aerosol Powder Breath Activated Incruse Ellipta 62.5 MCG/INH Inhalation Aerosol Powder Breath Activated 01/02/2021 12:00:00 AM EDT active 7 ACTUAT umeclidinium 0.0625 MG/ACTUAT Dry Powder Inhaler [Incruse] ANITA ([facility]) Simvastatin 40 MG Oral Tablet [Zocor] Zocor 40 MG Oral Tablet Zocor 40 MG Oral Tablet 01/02/2021 12:00:00 AM EDT 1 active simvastatin 40 MG Oral Tablet [Zocor] ANITA ([facility]) Atenolol 50 MG Oral Tablet Atenolol 50 MG Oral Tablet 2020 12:00:00 AM EDT active atenolol 50 MG Or al Tablet ANITA ([facility]) 3 ML Insulin, Aspart, Human 100 UNT/ML P en Injector [NovoLog] NovoLOG FlexPen 100 UNIT/ML Subcutaneous Solution Pen-injector NovoLOG FlexPen 100 UNIT/ML Subcutaneous Solution Pen-injector 01/02/2021 12:00:00 AM EDT active 3 ML insulin aspart, human 100 UNT/ML Pe n Injector [NovoLog] ANITA ([facility]) 12 HR Bupropion Hydrochloride 150 MG Ext ended Release Oral Tablet buPROPion HCl ER (SR) 150 MG Oral Tablet Extended Release 12 Hour buPROPion HCl ER (SR) 150 MG Oral Tablet Extended Release 12 Hour 01/02/2021 12:00:00 AM EDT active 12 HR bupropion hydrochloride 15 0 MG Extended Release Oral Tablet [facility]) Aspirin 81 MG Chewable Tablet Aspirin Ad ult Low Strength 81 MG Oral Tablet Chewable Aspirin Adult Low Strength 81 MG Oral Tablet Chewable 01/02/2021 12:00:00 AM EDT 1 active aspirin 81 MG Chewable Tablet [facility]) Metformin hydrochloride 500 MG Oral Tablet metFORMIN H Cl 500 MG Oral Tablet metFORMIN HCl 500 MG Oral Tablet 01/02/2021 12:00:00 AM EDT 2 active metformin hydrochloride 500 MG Oral Tablet [facility]) clopidogrel 75 MG Oral Tablet Clopidogrel Bisulfate 75 MG Oral Tablet Clopidogrel Bisulfate 75 MG Oral Tablet 01/02/2021 12:00:00 AM EDT active clopidogrel 75 MG Oral Tablet GR [facility] ([facility]) ropinirole 0.5 MG Oral Tablet rOPINIRole HCl 0.5 MG Or al Tablet rOPINIRole HCl 0.5 MG Oral Tablet 01/02/2021 12:00:00 AM EDT active ropinirole 0.5 MG Oral Tablet [facility]) Citalopram 20 MG Oral Tablet Citalopram Hydrobromide 2 0 MG Oral Tablet Citalopram Hydrobromide 20 MG Oral Tablet 01/02/2021 12:00:00 AM EDT active citalopram 20 MG Oral Tablet GRE [facility]) Ramipril 10 MG Oral Capsule Ramipril 10 MG Oral Capsule 04/0 03/2021 12:00:00 AM EDT active ramipril 10 MG Or al Capsule [facility]) ezetimibe 10 MG Oral Tablet [Zetia] Zetia 10 MG Oral T ablet Zetia 10 MG Oral Tablet 01/02/2021 12:00:00 AM EDT 1 active ezetimibe 10 MG Oral Tablet [Zetia] ANITA ([facility]) gabapentin 600 MG Oral Tablet Gabapentin 600 MG Oral T ablet Gabapentin 600 MG Oral Tablet 01/02/2021 12:00:00 AM EDT 1 active gabapentin 600 MG Oral Tablet ANITA ([facility]) Vitamin D (Ergocalciferol) 1.25 MG (88445 UT) Oral Cap titi Vitamin D (Ergocalciferol) 1.25 MG (21112 UT) Oral Capsule 01/02/2021 12:00:00 AM EDT active Vitamin D (Ergocalci ferol) [facility]) Cyclobenzaprine hydrochloride 10 MG Oral Tablet Cyclobenzaprine HCl 10 MG Oral Tablet Cyclobenzaprine HCl 10 MG Oral Tablet 01/02/2021 12:00:00 AM EDT active cyclobenzaprine hydrochlorid e 10 MG Oral Tablet [facility]) Amylases 71600 UNT / Endopeptidases 1900 0 UNT / Lipase 6000 UNT Delayed Release Oral Capsule [Creon] Creon 6000 UNIT Oral Capsule Delayed Release Particles Creon 6000 UNIT Oral Capsule Delayed Release Particles 12/22/2020 12:00:00 AM EDT active amylase 75353 UNT / lipase 6000 UNT / protease 62461 UNT Delayed Release Oral Capsule [Creon] [facility]) Memantine hydrochloride 10 MG Oral Tablet [Namenda] Na menda 10 MG Oral Tablet Namenda 10 MG Oral Tablet 12/04/2020 12:00:00 AM EST active memantine hydrochloride 10 MG Oral Tablet [Namenda] [facility]) Donepezil hydrochloride 10 MG Oral Tablet Donepezil HC l 10 MG Oral Tablet Donepezil HCl 10 MG Oral Tablet 12/04/2020 12:00:00 AM EST active donepezil hydrochloride 10 MG Oral Tablet [facility]) Vitamin D (Ergocalciferol) 1.25 MG (90800 UT) Oral Cap titi Vitamin D (Ergocalciferol) 1.25 MG (79899 UT) Oral Capsule 10/29/2020 12:00:00 AM EST aborted Vitamin D (Ergocalci ferol) ANITA ([facility]) Cyclobenzaprine hydrochloride 10 MG Oral Tablet Cyclobenzaprine HCl 10 MG Oral Tablet Cyclobenzaprine HCl 10 MG Oral Tablet 10/26/2020 12:00:00 AM EST aborted cyclobenzaprine hydrochlorid e 10 MG Oral Tablet ANITA ([facility]) ropinirole 0.5 MG Oral Tablet rOPINIRole HCl 0.5 MG Or al Tablet rOPINIRole HCl 0.5 MG Oral Tablet 10/26/2020 12:00:00 AM EST aborted ropinirole 0.5 MG Oral Tablet [facility]) clopidogrel 75 MG Oral Tablet Clopidogrel Bisulfate 75 MG Oral Tablet Clopidogrel Bisulfate 75 MG Oral Tablet 10/26/2020 12:00:00 AM EST aborted clopidogrel 75 MG Oral Tablet [facility] ([facility]) Ramipril 10 MG Oral Capsule Ramipril 10 MG Oral Capsule 09/29 12:00:00 AM EST aborted ramipril 10 MG O ral Capsule [facility]) Atenolol 50 MG Oral Tablet Atenolol 50 MG Oral Tablet 2020 12:00:00 AM EST aborted atenolol 50 MG O ral Tablet [facility]) Omeprazole 20 MG Delayed Release Oral Ca psule Omeprazole 20 MG Oral Capsule Delayed Release Omeprazole 20 MG Oral Capsule Delayed Release 10/26/19 12:00:00 AM EST active omeprazole 20 MG Delayed Release Oral Capsule [facility]) Citalopram 20 MG Oral Tablet Citalopram Hydrobromide 2 0 MG Oral Tablet Citalopram Hydrobromide 20 MG Oral Tablet 10/26/2020 12:00:00 AM EST aborted citalopram 20 MG Oral Tablet [facility] ([facility]) 12 HR Bupropion Hydrochloride 150 MG Ext ended Release Oral Tablet buPROPion HCl ER (SR) 150 MG Oral Tablet Extended Release 12 Hour buPROPion HCl ER (SR) 150 MG Oral Tablet Extended Release 12 Hour 10/26/2020 12:00:00 AM EST aborted 12 HR bupropion hydrochloride 15 0 MG Extended Release Oral Tablet [facility]) Cyclobenzaprine hydrochloride 10 MG Oral Tablet Cyclobenzaprine HCl 10 MG Oral Tablet Cyclobenzaprine HCl 10 MG Oral Tablet 10/03/2020 12:00:00 AM EST 1 aborted cyclobenzaprine hydrochlorid e 10 MG Oral Tablet [facility]) Amylases 41028 UNT / Endopeptidases 1900 0 UNT / Lipase 6000 UNT Delayed Release Oral Capsule [Creon] Creon 6000 UNIT Oral Capsule Delayed Release Particles Creon 6000 UNIT Oral Capsule Delayed Release Particles 10/03/2020 12:00:00 AM EST aborted amylase 84107 UNT / lipase 6000 UNT / protease 16899 UNT Delayed Release Oral Capsule [Creon] [facility]) ropinirole 0.5 MG Oral Tablet rOPINIRole HCl 0.5 MG Or al Tablet rOPINIRole HCl 0.5 MG Oral Tablet 10/03/2020 12:00:00 AM EST 1 aborted ropinirole 0.5 MG Oral Tablet [facility]) Ramipril 10 MG Oral Capsule Ramipril 10 MG Oral Capsule 02/2021 12:00:00 AM EST 1 aborted ramipril 10 MG O ral Capsule [facility]) Ergocalciferol 01404 UNT Oral Capsule [D risdol] Drisdol 1.25 MG (65554 UT) Oral Capsule Drisdol 1.25 MG (26629 UT) Oral Capsule 10/03/2020 12:00:00 AM EST aborted ergocalciferol 1.25 MG Oral Capsule [Drisdol] ANITA ([facility]) ezetimibe 10 MG Oral Tablet [Zetia] Zetia 10 MG Oral T ablet Zetia 10 MG Oral Tablet 10/03/2020 12:00:00 AM EST 1 aborted ezetimibe 10 MG Oral Tablet [Zetia] [facility]) 12 HR Bupropion Hydrochloride 150 MG Ext ended Release Oral Tablet buPROPion HCl ER (SR) 150 MG Oral Tablet Extended Release 12 Hour buPROPion HCl ER (SR) 150 MG Oral Tablet Extended Release 12 Hour 10/03/2020 12:00:00 AM EST aborted 12 HR bupropion hydrochloride 15 0 MG Extended Release Oral Tablet [facility]) Pen [place] 5/16" 31G X 8 MM Miscellaneous Pen [place] 5/16" 31G X 8 MM Miscellaneous 10/03/2020 12:00:00 AM EST active Pen [place] 5/16" ANITA ([facility]) Citalopram 20 MG Oral Tablet Citalopram Hydrobromide 2 0 MG Oral Tablet Citalopram Hydrobromide 20 MG Oral Tablet 10/03/2020 12:00:00 AM EST 1 aborted citalopram 20 MG Oral Tablet [facility]) clopidogrel 75 MG Oral Tablet [Plavix] Plavix 75 MG Or al Tablet Plavix 75 MG Oral Tablet 10/03/2020 12:00:00 AM EST 1 aborte d clopidogrel 75 MG Oral Tablet [Plavix] [facility]) Atenolol 50 MG Oral Tablet Atenolol 50 MG Oral Tablet 2020 12:00:00 AM EST 1 aborted atenolol 50 MG O ral Tablet [facility]) Metformin hydrochloride 500 MG Oral Tablet metFORMIN H Cl 500 MG Oral Tablet metFORMIN HCl 500 MG Oral Tablet 10/03/2020 12:00:00 AM EST 2 aborted metformin hydrochloride 500 MG Oral Tablet ANITA ([facility]) Aspirin 81 MG Chewable Tablet Aspirin Ad ult Low Strength 81 MG Oral Tablet Chewable Aspirin Adult Low Strength 81 MG Oral Tablet Chewable 10/03/2020 12:00:00 AM EST 1 aborted aspirin 81 MG Chewable Tablet [facility]) Omeprazole 20 MG Delayed Release Oral Ca psule Omeprazole 20 MG Oral Capsule Delayed Release Omeprazole 20 MG Oral Capsule Delayed Release 10/03/19 12:00:00 AM EST 1 aborted omeprazole 20 MG Delayed Release Oral Capsule [facility]) 3 ML Insulin, Aspart, Human 100 UNT/ML P en Injector [NovoLog] NovoLOG FlexPen 100 UNIT/ML Subcutaneous Solution Pen-injector NovoLOG FlexPen 100 UNIT/ML Subcutaneous Solution Pen-injector 10/03/2020 12:00:00 AM EST aborted 3 ML insulin aspart, human 100 UNT/ML Pe n Injector [NovoLog] ANITA ([facility]) gabapentin 600 MG Oral Tablet Gabapentin 600 MG Oral T ablet Gabapentin 600 MG Oral Tablet 10/03/2020 12:00:00 AM EST 1 aborte d gabapentin 600 MG Oral Tablet [facility]) Simvastatin 40 MG Oral Tablet [Zocor] Zocor 40 MG Oral Tablet Zocor 40 MG Oral Tablet 10/03/2020 12:00:00 AM EST 1 aborted simvastatin 40 MG Oral Tablet [Zocor] [facility]) 7 ACTUAT umeclidinium 0.0625 MG/ACTUAT D ry Powder Inhaler [Incruse] Incruse Ellipta 62.5 MCG/INH Inhalation Aerosol Powder Breath Activated Incruse Ellipta 62.5 MCG/INH Inhalation Aerosol Powder Breath Activated 10/03/2020 12:00:00 AM EST aborted 7 ACTUAT umeclidinium 0.0625 MG/ACTUAT Dry Powder Inhaler [Incruse] ANITA ([facility]) sitagliptin 100 MG Oral Tablet [Januvia] Januvia 100 M G Oral Tablet Januvia 100 MG Oral Tablet 09/30/2020 12:00:00 AM EST abo rted sitagliptin 100 MG Oral Tablet [Januvia] ANITA ([facility]) ezetimibe 10 MG Oral Tablet [Zetia] Zetia 10 MG Oral T ablet Zetia 10 MG Oral Tablet 07/16/2020 12:00:00 AM EDT 1 aborted ezetimibe 10 MG Oral Tablet [Zetia] ANITA ([facility]) ropinirole 0.5 MG Oral Tablet rOPINIRole HCl 0.5 MG Or al Tablet rOPINIRole HCl 0.5 MG Oral Tablet 07/16/2020 12:00:00 AM EDT 1 aborted ropinirole 0.5 MG Oral Tablet [facility]) Ramipril 10 MG Oral Capsule Ramipril 10 MG Oral Capsule 06/28 12:00:00 AM EDT 1 aborted ramipril 10 MG O ral Capsule [facility]) Atenolol 50 MG Oral Tablet Atenolol 50 MG Oral Tablet 2019 12:00:00 AM EDT 1 aborted atenolol 50 MG O ral Tablet [facility]) clopidogrel 75 MG Oral Tablet [Plavix] Plavix 75 MG Or al Tablet Plavix 75 MG Oral Tablet 07/16/2020 12:00:00 AM EDT 1 aborte d clopidogrel 75 MG Oral Tablet [Plavix] ANITA ([facility]) sitagliptin 100 MG Oral Tablet [Januvia] Januvia 100 M G Oral Tablet Januvia 100 MG Oral Tablet 07/16/2020 12:00:00 AM EDT 1 abo rted sitagliptin 100 MG Oral Tablet [Januvia] [facility]) Omeprazole 20 MG Delayed Release Oral Ca psule Omeprazole 20 MG Oral Capsule Delayed Release Omeprazole 20 MG Oral Capsule Delayed Release 07/16/20 12:00:00 AM EDT 1 aborted omeprazole 20 MG Delayed Release Oral Capsule [facility]) Aspirin 81 MG Chewable Tablet Aspirin Ad ult Low Strength 81 MG Oral Tablet Chewable Aspirin Adult Low Strength 81 MG Oral Tablet Chewable 07/16/2020 12:00:00 AM EDT 1 aborted aspirin 81 MG Chewable Tablet [facility]) 12 HR Bupropion Hydrochloride 150 MG Ext ended Release Oral Tablet buPROPion HCl ER (SR) 150 MG Oral Tablet Extended Release 12 Hour buPROPion HCl ER (SR) 150 MG Oral Tablet Extended Release 12 Hour 07/16/2020 12:00:00 AM EDT aborted 12 HR bupropion hydrochloride 15 0 MG Extended Release Oral Tablet [facility]) Metformin hydrochloride 500 MG Oral Tablet metFORMIN H Cl 500 MG Oral Tablet metFORMIN HCl 500 MG Oral Tablet 07/16/2020 12:00:00 AM EDT 2 aborted metformin hydrochloride 500 MG Oral Tablet ANITA ([facility]) Citalopram 20 MG Oral Tablet Citalopram Hydrobromide 2 0 MG Oral Tablet Citalopram Hydrobromide 20 MG Oral Tablet 07/16/2020 12:00:00 AM EDT 1 aborted citalopram 20 MG Oral Tablet [facility]) Ergocalciferol 07674 UNT Oral Capsule [D risdol] Drisdol 1.25 MG (52446 UT) Oral Capsule Drisdol 1.25 MG (76240 UT) Oral Capsule 07/16/2020 12:00:00 AM EDT aborted ergocalciferol 1.25 MG Oral Capsule [Drisdol] [facility]) 7 ACTUAT umeclidinium 0.0625 MG/ACTUAT D ry Powder Inhaler [Incruse] Incruse Ellipta 62.5 MCG/INH Inhalation Aerosol Powder Breath Activated Incruse Ellipta 62.5 MCG/INH Inhalation Aerosol Powder Breath Activated 07/16/2020 12:00:00 AM EDT aborted 7 ACTUAT umeclidinium 0.0625 MG/ACTUAT Dry Powder Inhaler [Incruse] ANITA ([facility]) Cyclobenzaprine hydrochloride 10 MG Oral Tablet Cyclobenzaprine HCl 10 MG Oral Tablet Cyclobenzaprine HCl 10 MG Oral Tablet 07/16/2020 12:00:00 AM EDT 1 aborted cyclobenzaprine hydrochlorid e 10 MG Oral Tablet [facility]) 3 ML Insulin, Aspart, Human 100 UNT/ML P en Injector [NovoLog] NovoLOG FlexPen 100 UNIT/ML Subcutaneous Solution Pen-injector NovoLOG FlexPen 100 UNIT/ML Subcutaneous Solution Pen-injector 07/16/2020 12:00:00 AM EDT aborted 3 ML insulin aspart, human 100 UNT/ML Pe n Injector [NovoLog] [facility]) gabapentin 600 MG Oral Tablet Gabapentin 600 MG Oral T ablet Gabapentin 600 MG Oral Tablet 07/16/2020 12:00:00 AM EDT 1 aborte d gabapentin 600 MG Oral Tablet ANITA ([facility]) Simvastatin 40 MG Oral Tablet [Zocor] Zocor 40 MG Oral Tablet Zocor 40 MG Oral Tablet 07/16/2020 12:00:00 AM EDT 1 aborted simvastatin 40 MG Oral Tablet [Zocor] ANITA ([facility]) Amylases 15290 UNT / Endopeptidases 1900 0 UNT / Lipase 6000 UNT Delayed Release Oral Capsule [Creon] Creon 6000 UNIT Oral Capsule Delayed Release Particles Creon 6000 UNIT Oral Capsule Delayed Release Particles 06/05/2020 12:00:00 AM EDT aborted amylase 01920 UNT / lipase 6000 UNT / protease 99010 UNT Delayed Release Oral Capsule [Creon] [facility]) Atenolol 50 MG Oral Tablet Atenolol 50 MG Oral Tablet 2019 12:00:00 AM EDT 1 aborted atenolol 50 MG O ral Tablet [facility]) clopidogrel 75 MG Oral Tablet [Plavix] Plavix 75 MG Or al Tablet Plavix 75 MG Oral Tablet 05/15/2020 12:00:00 AM EDT 1 aborte d clopidogrel 75 MG Oral Tablet [Plavix] ANITA ([facility]) Omeprazole 20 MG Delayed Release Oral Ca psule Omeprazole 20 MG Oral Capsule Delayed Release Omeprazole 20 MG Oral Capsule Delayed Release 05/15/20 12:00:00 AM EDT 1 aborted omeprazole 20 MG Delayed Release Oral Capsule [facility]) Aspirin 81 MG Chewable Tablet Aspirin Ad ult Low Strength 81 MG Oral Tablet Chewable Aspirin Adult Low Strength 81 MG Oral Tablet Chewable 05/15/2020 12:00:00 AM EDT 1 aborted aspirin 81 MG Chewable Tablet ANITA ([facility]) 3 ML Insulin, Aspart, Human 100 UNT/ML P en Injector [NovoLog] NovoLOG FlexPen 100 UNIT/ML Subcutaneous Solution Pen-injector NovoLOG FlexPen 100 UNIT/ML Subcutaneous Solution Pen-injector 05/15/2020 12:00:00 AM EDT aborted 3 ML insulin aspart, human 100 UNT/ML Pe n Injector [NovoLog] [facility]) 7 ACTUAT umeclidinium 0.0625 MG/ACTUAT D ry Powder Inhaler [Incruse] Incruse Ellipta 62.5 MCG/INH Inhalation Aerosol Powder Breath Activated Incruse Ellipta 62.5 MCG/INH Inhalation Aerosol Powder Breath Activated 05/15/2020 12:00:00 AM EDT aborted 7 ACTUAT umeclidinium 0.0625 MG/ACTUAT Dry Powder Inhaler [Incruse] ANITA ([facility]) sitagliptin 100 MG Oral Tablet [Januvia] Januvia 100 M G Oral Tablet Januvia 100 MG Oral Tablet 05/15/2020 12:00:00 AM EDT 1 abo rted sitagliptin 100 MG Oral Tablet [Januvia] [facility]) Pen [place] 516" 31G X 8 MM Miscellaneous Pen [place] 516" 31G X 8 MM Miscellaneous 05/15/2020 12:00:00 AM EDT abor james Pen [place] 16" ANITA ([facility]) gabapentin 600 MG Oral Tablet Gabapentin 600 MG Oral T ablet Gabapentin 600 MG Oral Tablet 05/15/2020 12:00:00 AM EDT 1 aborte d gabapentin 600 MG Oral Tablet ANITA ([facility]) Cyclobenzaprine hydrochloride 10 MG Oral Tablet Cyclobenzaprine HCl 10 MG Oral Tablet Cyclobenzaprine HCl 10 MG Oral Tablet 05/15/2020 12:00:00 AM EDT 1 aborted cyclobenzaprine hydrochlorid e 10 MG Oral Tablet [facility]) Ramipril 10 MG Oral Capsule Ramipril 10 MG Oral Capsule 04/28 12:00:00 AM EDT 1 aborted ramipril 10 MG O ral Capsule ANITA ([facility]) Ergocalciferol 46300 UNT Oral Capsule [D risdol] Drisdol 1.25 MG (56925 UT) Oral Capsule Drisdol 1.25 MG (17861 UT) Oral Capsule 05/15/2020 12:00:00 AM EDT aborted ergocalciferol 1.25 MG Oral Capsule [Drisdol] [facility]) ropinirole 0.5 MG Oral Tablet rOPINIRole HCl 0.5 MG Or al Tablet rOPINIRole HCl 0.5 MG Oral Tablet 05/15/2020 12:00:00 AM EDT 1 aborted ropinirole 0.5 MG Oral Tablet [facility]) Metformin hydrochloride 500 MG Oral Tablet metFORMIN H Cl 500 MG Oral Tablet metFORMIN HCl 500 MG Oral Tablet 05/15/2020 12:00:00 AM EDT 2 aborted metformin hydrochloride 500 MG Oral Tablet ANITA ([facility]) Simvastatin 40 MG Oral Tablet [Zocor] Zocor 40 MG Oral Tablet Zocor 40 MG Oral Tablet 05/15/2020 12:00:00 AM EDT 1 aborted simvastatin 40 MG Oral Tablet [Zocor] JACK ([facility]) 12 HR Bupropion Hydrochloride 150 MG Ext ended Release Oral Tablet buPROPion HCl ER (SR) 150 MG Oral Tablet Extended Release 12 Hour buPROPion HCl ER (SR) 150 MG Oral Tablet Extended Release 12 Hour 05/15/2020 12:00:00 AM EDT aborted 12 HR bupropion hydrochloride 15 0 MG Extended Release Oral Tablet ANITA ([facility]) Citalopram 20 MG Oral Tablet Citalopram Hydrobromide 2 0 MG Oral Tablet Citalopram Hydrobromide 20 MG Oral Tablet 05/15/2020 12:00:00 AM EDT 1 aborted citalopram 20 MG Oral Tablet [facility] ezetimibe 10 MG Oral Tablet [Zetia] Zetia 10 MG Oral T ablet Zetia 10 MG Oral Tablet 05/15/2020 12:00:00 AM EDT 1 aborted ezetimibe 10 MG Oral Tablet [Zetia] ANITA ([facility]) 0.5 ML dulaglutide 3 MG/ML Auto-Injector Dulaglutide 1.5 MG/0.5ML Subcutaneous Solution Pen-injector (Trulicity) Dulaglutide 1.5 MG/0.5ML Subcutaneous So lution Pen-injector (Trulicity) 04/11/2020 12:00:00 AM EDT aborted Type 2 diabetes mellitus with hyperglycemia, with long-term current use of insulin Inject 1.5mg subq once per week.Dx: E11.65 [facility] Type 2 diabetes mellitus with hyperglyce farheen, with long-term current use of insulin Insurance Providers Payer name Policy type / Coverage type Policy ID Covered alliance party ID Covered alliance party's relationship to nobles Policy Nobles Plan Information Radha [place] () Workers Compensation [id number] Self Radha [place] () Workers Compensation [id number] Self [id number] MEDICARE A [id number] Self [id number] Medicare Part B of [place] Medicare Primary 0 [id number] Self 0 [id number] A MEDICARE [id number] SP [id number] A MEDICARE [id number] SP [id number] A Medicare Part B of [place] Medicare Primary 0 [id number] Self 0 Medicare Part B of [facility] Medicare Primary 0 [id number] Self 0 MEDICARE [id number] SP [id number] Medicare Part B of [facility] Medicare Primary 0 [id number] Self 0 Medicare Part B of [place] Medicare Primary 0 [id number] Self 0 Medicare Part B of [facility] Medicare Primary 0 [id number] Self 0 Medicare Part B of [facility] Medicare Primary 0 [id number] Self 0 Medicare Part B of [place] Medicare Primary 0 [id number] Self 0 Medicaid [place] Medigap Part B [id number] Self [id number] Medicaid [place] Med[place] Part B [id number] [place] [id number] [place] Primary [id number] Self MEDICAID [id number] SP [id number] MEDICAID [id number] SP [id number] Medicare [facility] Medicare Primary [id number] Self 4 [id number] [place] Primary [id number] Self [id number] Medicare [facility] Medicare Primary [id number] Self [id number] MEDICAID M [id number] Self [id number] MEDICAID [id number] SP [id number] MEDICARE C [id number] S [id number] A Medicaid of [place] Supplemental Policy 0 [id number] Self 0 [place] Supplemental Policy 0 [id number] Self 0 [place] Supplemental Policy 0 [id number] Self 0 [place] Supplemental Policy 0 [id number] Self 0 [place] Supplemental Policy 0 [id number] Self 0 Medicaid [place] Medigap Part B [id number] Self [id number] Medicare [place] Medicare Primary [id number] Self [id number] [facility] [id number] KAR CLAIM ADMIN WORK COMP [id number] SP [id number] [facility] SELF INSURED [facility] MEDICAID Medicare Part B of [facility] Other 0 [id number] Self 0 Medicare Part B of [facility] Other 0 [id number] Self 0 Medicare Part B of [facility] Other 0 [id number] Self 0 Medicare Part B of [facility] Other 0 [id number] Self 0 Medicare Part B of [facility] Other 0 [id number] Self 0 MEDICARE C [id number] S [id number] [id number] Medicare Part B of [facility] Other 0 [id number] Self 0 Medicare Part B of [facility] Other 0 [id number] Self 0 Medicare Part B of [facility] Other 0 [id number] Self 0 MEDICAID [id number] SP [id number] MEDICARE PART A -O/P [id number] 18 [id number] Medicare Part B of [facility] Other 0 [id number] Self 0 Medicare Part B of [facility] Other 0 [id number] Self 0 Medicare Part B of [facility] Other 0 [id number] Self 0 Medicare Part B of [facility] Other 0 [id number] Self 0 Medicaid of [place] Supplemental Policy 0 [id number] Self 0 Medicare Part B of [facility] Other 0 [id number] Self 0 Medicaid [place] Supplemental Policy 0 [id number] Self 0 [place] Supplemental Policy 0 [id number] Self 0 Medicaid [place] Supplemental Policy 0 [id number] Self 0 MEDICAID M [id number] S [id number] Problems, Conditions, and Diagnoses Code Display Name Description Problem Type Effective Dates Data Source(s) R91.8 Other nonspecific abnormal finding of patrick ng field Other nonspecific abnormal finding of lung field Diagnosis 12/19/2020 02:56:00 PM EDT [facility] E78.5 Hyperlipidemia, unspecified Hyperlipidemia, unspecifie d Diagnosis 10/26/2020 10:57:[address] [facility] E55.9 Vitamin D deficiency, unspecified Vitamin D defi ciency, unspecified Diagnosis 10/26/2020 10:57:[address] [facility] E03.9 Hypothyroidism, unspecified Hypothyroidism, unspecifie d Diagnosis 10/26/2020 10:57:[address] [facility] Education Education Diagnosis 09/12/2020 10:23:43 AM [facility] Surgeries/Procedures Procedure Description Date Indications Data Source(s) [facility] COMPL SPEC&COLR DOP 01/24 12:00:00 AM EDT LENKA (Alberto Acevedo MD) ELECTROCARDIOGRAM, COMPLETE (EKG) ELECTROCARDIOGRAM, COMPLET E (EKG) 01/02/2021 12:00:00 AM EDT JACK ([facility]) Spirometry 11/21/2020 12:00:00 AM EST M EDENT ([facility], ) Bronchospasm Evaluation 11/21/2020 12:00:00 AM EST [facility] ([facility], ) Plethysmography Determination Lung Volumes & Per Airway Resi st 11/21/2020 12:00:00 AM EST [facility] ([facility], ) DIFFUSING CAPACITY 11/21/2020 12:00:00 AM EST [facility] ([facility], ) ELECTROENCEPHALOGRAM W/REC AWAKE&ASLEEP 09/14/2020 12: 00:00 AM EST [facility] ([facility], ) ELECTROENCEPHALOGRAM W/REC AWAKE&ASLEEP 09/14/2020 12: 00:00 AM EST [facility] ([facility], ) TSTG ANS FUNCJ CARDIOVAGAL INNERVAJ PARASYMP 0 12:00:00 AM EST [facility] ([facility], ) TSTG ANS FUNCJ CARDIOVAGAL INNERVAJ PARASYMP 0 12:00:00 AM EST [facility] ([facility], ) TESTING AUTONOMIC NERVOUS SYSTEM FUNCTION 08/29/2020 1 2:00:00 AM EST [facility] ([facility], ) TESTING AUTONOMIC NERVOUS SYSTEM FUNCTION 08/29/2020 1 2:00:00 AM EST [facility] ([facility], ) Results ID Date Data Source [id number] 08/12/2021 12:17:30 PM [facility] Name Value Range Interpretation Code Description Data Allyson rce(s) Supporting Document(s) Progress Note [facility] [id number] lbm [file] [id number] ID Date Data Source [id number] 08/12/2021 12:17:25 PM [facility] Name Value Range Interpretation Code Description Data Allyson rce(s) Supporting Document(s) Progress Note [facility] [id number] lbm [file] [id number] ID Date Data Source [id number] 08/01/2021 08:15:00 AM EDT [facility] ([facility]) Name Value Range Interpretation Code Description Data Allyson rce(s) Supporting Document(s) PDFReport Laboratory test result [facility] ([facility]) FVC-Pred 3.74 L [facility] ([facility]) FVC-%Pred-Pre 84 L [facility] ([facility]) FVC-LLN 2.96 L [facility] ([facility]) FVC-Pre 3.18 L [facility] ([facility]) Fev1-%Pred-Pre 67 L [facility] ([facility]) Fev1-Pre 1.90 L [facility] ([facility]) Fev1-Pred 2.81 L [facility] ([facility]) Fev6-Pred 3.54 L [facility] ([facility]) Fev1-LLN 2.15 L [facility] ([facility]) Fev6-Pre 3.18 L [facility] ([facility]) [id number]-Wcvp 75 % [facility] ([facility]) Fev6-LLN 2.78 L [facility] ([facility]) Fev6-%Pred-Pre 89 L [facility] ([facility]) Qea7rpe-%Pred-Pre 79 % [facility] ([facility]) Hca7uni-AFY 66 % [facility] ([facility]) Xam6uvo-Zqe 60 % [facility] ([facility]) Pgq5xqu-Unfj 95 % [facility] ([facility]) Wpp2otp-Rjc 100 % [facility] ([facility]) FEFMax-Pred 7.78 L/E/sec [facility] ([facility]) Pan1bcr-%Pred-Pre 105 % [facility] ([facility]) FEFMax-Pre 3.39 L/E/sec [facility] ([facility]) FEFMax-%Pred-Pre 43 L/E/sec [facility] ([facility]) FEFMax-LLN 5.83 L/E/sec [facility] ([facility]) Mkg5371-Gkc 1.18 L/E/sec [facility] ([facility]) Xjz2728-%Pred-Pre 50 L/E/sec [facility] ([facility]) Lrp0030-Goyv 2.34 L/E/sec [facility] ([facility]) Vyp8kne8-Hylt 79 % [facility] ([facility]) ExpTime-Pre 6.91 sec [facility] ([facility]) Hte5626-LQU 1.00 L/E/sec [facility] ([facility]) Bxf7ykw8-AVX 70 % [facility] ([facility]) Suf1xpg9-Vpr 60 % [facility] ([facility]) Gdx2zls7-%Pred-Pre 75 % [facility] ([facility]) ID Date Data Source [id number] 07/25/2021 09:36:00 AM EDT [facility] ([facility]) Name Value Range Interpretation Code Description Data Allyson rce(s) Supporting Document(s) Triiodothyronine (T3) Free [Mass/volume] in Serum or Plasma 3.0 pg/mL 2.2-4.0 Normal (applies to non-numeric results) [facility] ([facility]) Calcidiol [Mass/volume] in Serum or Plasma 65.2 ng/mL 30.0- 100.0 Normal (applies to non-numeric results) [facility]) ID Date Data Source [id number] 07/25/2021 09:36:00 AM EDT [facility]) Name Value Range Interpretation Code Description Data Allyson rce(s) Supporting Document(s) Thyroid Stimulating Hormone 1.730 uIU/ML 0.358-3.740 Norm al (applies to non- numeric results) [facility] ([facility]) Free T4 1.06 ng/dL 0.76-1.46 Normal (applies to non-numeric resul ts) [facility]) ID Date Data Source [id number] 07/25/2021 09:36:00 AM EDT [facility] ([facility]) Name Value Range Interpretation Code Description Data Allyson rce(s) Supporting Document(s) Urate [Mass/volume] in Serum or Plasma 4.5 mg/dL 3.5-7.2 Normal (applies to non- numeric results) [facility] ([facility]) Magnesium [Mass/volume] in Serum or Plasma 1.9 mg/dL 1.8-2 .4 Normal (applies to non-numeric results) [facility] ([facility]) Prostate specific Ag [Mass/volume] in Serum or Plasma 0.18 ng/mL Normal (applies to non-numeric results) [facility]) The PSA assay is performed on the [employer] analyzer by [employer] sandwich chemiluminescent immunoassay and should not be compared interchangeably with other methods. It should not be used alone as a screening test or diagnosis for the presence or absence of malignant disease. Predictions of disease recurrence should not be based solely on values obtained from serial patient serum values. ID Date Data Source [id number] 07/25/2021 09:36:00 AM EDT [facility]) Name Value Range Interpretation Code Description Data Allyson rce(s) Supporting Document(s) Glucose, Fasting 453 mg/dL 70-100 Above upper panic limits [facility] ([facility]) Blood Urea Nitrogen 19 mg/dL 7-18 Above high normal [facility] ([facility]) Glomerular Filtration Rate Laboratory test result Normal (applies to non- numeric results) [facility]) <content>Units are mL/min/1.73 m2</content>
<content></content>
<content>Chronic Kidney Disease Staging per NKF:</content>
<content></content>
<content>Stage I & II GFR >=60 Normal to Mildly Decreased</content>
<content>Stage III GFR 30- 59 Moderately Decreased</content>
<content>Stage IV GFR 15-29 Severely Decreased</content>
<content>Stage V GFR <15 Very Little GFR Left</content>
<content>ESRD GFR <15 on [facility] [facility]</content>
<content></content> Sodium Level 133 meq/L 136-145 Below low normal [facility] ([facility]) Creatinine For GFR 1.25 mg/dL 0.70-1.30 Normal (applies to non -numeric results) [facility] ([facility]) Potassium Serum 4.9 meq/L 3.5-5.1 Normal (applies to non-numeric results) [facility] Chloride Level 96 meq/L 98-107 Below low normal [facility] ([facility]) Carbon Dioxide Level 31 meq/L 21-32 Normal (applies to non-num issac results) [facility] ([facility]) Anion Gap 6 meq/L 8-16 Below low normal [facility] ( [facility]) Calcium Level 10.1 mg/dL 8.8-10.2 Normal (applies to non-numeric re sults) [facility] ([facility]) ID Date Data Source [id number] 07/25/2021 09:36:00 AM EDT [facility] ([facility]) Name Value Range Interpretation Code Description Data Allyson rce(s) Supporting Document(s) HDL Cholesterol 36 mg/dL Below low normal [facility] ([facility]) Triglycerides Level 205 mg/dL Above high normal [facility] ([facility]) Cholesterol Level 125 mg/dL Normal (applies to non-numeri c results) [facility] ([facility]) LDL Cholesterol 48 mg/dL Normal (applies to non-numeric results) [facility] ([facility]) Non-HDL-C 89 mg/dL Normal (applies to non-numeric resul ts) [facility]) Cholesterol Risk Ratio 3.472 Normal (applies to non-n umeric results) [facility]) ID Date Data Source [id number] 07/25/2021 09:36:00 AM EDT [facility]) Name Value Range Interpretation Code Description Data Allyson rce(s) Supporting Document(s) White Blood Count 11.7 10 4.0-10.0 Above high normal [facility] ([facility]) Red Blood Count 5.28 10 4.30-6.10 Normal (applies to non-numeric results) [facility]) Hemoglobin 17.7 g/dL 13.5-17.5 Above high normal [facility] ([facility]) Hematocrit 50.9 % 42.0-52.0 Normal (applies to non-numeric resul ts) [facility]) Mean Corpuscular Volume 96.4 fl 80.0-96.0 Above high normal [facility] ([facility]) Mean Corpuscular HGB Conc 34.8 g/dL 32.0-36.5 Normal (applies to non-numeric results) [facility]) Mean Corpuscular Hemoglobin 33.5 pg 27.0-33.0 Above high normal [facility] ([facility]) Red Cell Distribution Width 12.3 % 11.5-14.5 Norm al (applies to non-numeric results) [facility] ([facility]) Platelet Count, Automated 280 10 150-450 Normal (applies to non-numeric results) [facility]) Nucleated Red Blood Cell % 0.0 % 0-0 Normal (applies to n on-numeric results) [facility]) ID Date Data Source [id number] 07/25/2021 09:33:00 AM EDT [facility]) Name Value Range Interpretation Code Description Data Allyson rce(s) Supporting Document(s) Creatinine, Urine 49.2 mg/dL Normal (applies to non-numeri c results) [facility]) Malb Urine Siemens 214.0 mg/L Normal (applies to non-numer ic results) [facility]) Andre/Creat Ratio 434.9 MCG/MG 0.0-30.0 Above high normal [facility] ([facility]) THE [employer] [place] STATES THAT MICROALBUMINURIA IS PRESENT IF THE MICROALBUMIN/CREATININE RATIO EXCEEDS 30 MCG/MG. THE THRESHOLD FOR CLINICAL ALBUMINURIA IS REACHED AT 300 MCG/MG. THE CLASSIFICATION OF A PATIENT SHOULD BE BASED UPON AT LEAST 2 OF 3 ABNORMAL RESULTS ON SPECIMENS COLLECTED WITHIN A 3 TO 6 MONTH TIME FRAME. ID Date Data Source [id number] 07/25/2021 09:33:00 AM EDT [facility]) Name Value Range Interpretation Code Description Data Allyson rce(s) Supporting Document(s) Appearance, Urine Laboratory test result Normal (applies to non-numeric results) [facility] ([facility]) Color, Urine Laboratory test result Normal (applies to non -numeric results) [facility] ([facility]) Specific [place] Urine Auto 1.029 1.002-1.035 Norm al (applies to non-numeric results) [facility]) PH,Urine 6.0 units 5.0-9.0 Normal (applies to non-numeric resul ts) [facility]) Protein, Urine Auto Laboratory test result Above high norm al [facility]) Ketone, Urine Auto Laboratory test result Normal (applies to non-numeric results) [facility] ([facility]) Urobilinogen, Urine Auto 0.2 mg/dL 0.0-2.0 Normal (applies to non-numeric results) [facility]) Glucose, Urine (Ua) Auto Laboratory test result Above high normal [facility] ([facility]) Nitrite, Urine Auto Laboratory test result Ailyn l (applies to non-numeric results) [facility]) Bilirubin, Urine Auto Laboratory test result Nor mal (applies to non-numeric results) [facility]) Blood, Urine Blood Laboratory test result Normal (applies to non-numeric results) [facility] ([facility], ) WBC, Urine Auto 0 /HPF 0-3 Normal (applies to non-numeric results) [facility] ([facility], ) Leukocyte Esterase, Urine Auto Laboratory test result Normal (applies to non- numeric results) [facility] ([facility], ) Squamous Epithelial Cell Ur AU 0 /HPF 0-6 N ormal (applies to non-numeric results) [facility] ([facility], ) Bacteria, Urine Auto Laboratory test result Norm al (applies to non-numeric results) [facility] ([facility], ) RBC, Urine Auto 0 /HPF 0-3 Normal (applies to non-numeric results) [facility] ([facility], ) Hyaline Cast, Urine Auto 0 /LPF 0-1 Normal (applies to non -numeric results) [facility] ([facility], ) ID Date Data Source [id number] 01/29/2021 08:14:32 AM EDT [facility] Name Value Range Interpretation Code Description Data Allyson rce(s) Supporting Document(s) Progress Note [facility] ZABRLw2aDsEGXlNh17/IAIolNMMua0NkSXaiKCd6DOwfQTUkV8McOAF2tV6fLDO6GZzSUxYbWsYwNFF7 lbm [file] DtOzNjOBWvH8L8KCW+PB1rRFa+Ii0Ae4IlhrJ5srRwKNomJBZ0AW3CQPJXA5UGIs== ID Date Data Source [id number] 01/28/2021 12:38:00 PM EDT [facility] Name Value Range Interpretation Code Description Data Allyson rce(s) Supporting Document(s) Progress Note [facility] DOZYDd2xGjLGDaVz41/KYUyhCGBrr9BfUGyzLWt8CFciCFNuL0OpQLR4vZ8iGDI9SFjEHsOuTbMgPZCi lbm YgOheRWlRhBPXnFvbGGjJyTIfvXfdxsYUtAD7BfDV3ONUwQ72zFPHwKXCaL2CaSVOmWFS+Gk2GXTSziO VtQN6AOglU0I1bish8Ag9tlC3QaOQQfwfeLkuAhoedyW5QzeNLHwNO4P1wsA4bkus+PXLx/wI8Q8hcQs 5btflVVdqiNArQwPnRr9didYSYs6/SmfZ6gsEsp7wr g0iJ/r3461/QnthIl1IMG1ob8wYjLyrsDjg/1XPrB4781lMzE1AhyfviVy6G5RbHWkX1jtw57E1r6F6i iY/qtQHPQXD00vFeIWyxwZT2xa6rvi5n1uniHq+NUzq+KxdYz+XpHOuXFrOhG9CwIlEzTJNVbY+tEu15 X2T1jzM4k4ZjJglaWcf2krHRfflIxNGHSeo7jxm/granda [file] 4W/Jose Luis+ga0lOEr13kJynyrJ0mutoYhtWL6U/l1cF7vjjfaTlOkgy4dJfGzkAmYnfcMOO06IFzSTxNjrU [file] CeARM4AOSjXtAwAIa0FlJ3VcHhIP2vUSYNNk2+ZBjzwEIsrYypZKLAXoX4PIO3LQuuYQZCHh1P ID Date Data Source [id number] 01/28/2021 12:37:55 PM EDT [facility] Name Value Range Interpretation Code Description Data Allyson rce(s) Supporting Document(s) Progress Note [facility] MRNEUw4sTvNNFuDp75/VFPklTNZfb2GdEBmsHNh1YPxgCJZqS8UmORX8qJ6fOWV7VHnWGmBzCvKpSBHg lbm [file] U+QC3uKWe+Vb1Py5ZoxnP9vpOdHHomTgX2IQ4OJEYME3NMOs== ID Date Data Source [id number] 12/19/2020 03:06:00 PM EDT [facility] ([facility] ) Name Value Range Interpretation Code Description Data Allyson rce(s) Supporting Document(s) Surgical Pathology Consult Laboratory test result [facility]) Surgical Pathology Report Name: BRIELLE ACOSTA Collection Date: 12/19/2020 00:00 Received Date: 12/19/2020 15:07 Physician(s): KHRIS FAY DO ADJAPONG, OPOKU, MD Specimen(s) Received A: Material received for consultation, [facility] [place], [facility], [phone] Clinical History Lung mass. This 60 year-old man is presenting with a left upper lobe lung nodule. Diagnosis LUNG, LEFT, CORE NEEDLE BIOPSY: NECROTIZING GRANULOMATOUS INFLAMMATION. HISTOPLASMA YEAST PRESENT. (See Microscopic Description). /pmw Electronically Signed By Raffy Benjamin M.D., Attending Pathologist 12/27/2020 08:38:55 Gross Description Received from [facility] in [place], [place], are 2 H and E stained slides and 1 paraffin block, labeled [id number], with the corresponding pathology report. Microscopic Description I agree the sections show extensive necrosis. Focally at the edge of two of the cores, there are palisading histiocytes along with focal chronic inflammation supporting necrotizing granulomatous inflammation. We performed AFB and GMS stains. AFB is negative and GMS shows fungal yeast consistent with Histoplasma. Thank you for letting me see this difficult case in consultation. This report may include one or more immunohistochemical stain results that use analyte specific reagents. All positive and negative controls have been reviewed by the attending pathologist and are satisfactory. The tests were developed and their performance characteristics determined by [facility] Pathology department. They have not been cleared or approved by the [place] Food and Drug Administration. The FDA has determined that such clearance or approval is not necessary. ID Date Data Source [id number] 12/27/2020 08:38:00 AM [facility] Surgical Pathology ReportName: ELEN ACOSTAMRN: [id number] Number: [id number] Date: 12/19/2020 00:00Received Date: 12/19/2020 15:07Physician(s): KHRIS FAY,DO PEREZ,JENNIFER,CHELEpecimen(s) ReceivedA: Material received for consultation, [facility], [facility],[id number] HistoryLung mass. This 60 year-old man is presenting with a left upper lobe lungnodule. DiagnosisLUNG, LEFT, CORE NEEDLE BIOPSY: NECROTIZING GRANULOMATOUS INFLAMMATION.HISTOPLASMA YEAST PRESENT. (See Microscopic Description). /pmwElectronically Signed By Raffy Benjamin M.D., Attending Pathologist12/27/2020 08:38:55 Gross DescriptionReceived from [facility] in [place], [place], are 2 H and Estained slides and 1 paraffin block, labeled [id number], with thecorresponding pathology report. Microscopic DescriptionI agree the sections show extensive necrosis. Focally at the edge of twoof the cores, there are palisading histiocytes along with focal chronicinflammation supporting necrotizing granulomatous inflammation. Weperformed AFB and GMS stains. AFB is negative and GMS shows fungal yeastconsistent with Histoplasma.Thank you for letting me see this difficult case in consultation. This report may include one or more immunohistochemical stain results thatuse analyte specific reagents. All positive and negative controls havebeen reviewed by the attending pathologist and are satisfactory. The testswere developed and their performance characteristics determined by [facility] Pathology department. They have not been cleared or approved by the USFood and Drug Administration. The FDA has determine d that such clearanceor approval is not necessary. Name Value Range Interpretation Code Description Data [facility](s) Supporting Document(s) ID Date Data Source [id number] 12/11/2020 10:42:00 AM EDT [facility] ([facility], ) Name Value Range Interpretation Code Description Data [facility](s) Supporting Document(s) Surgical pathology study Laboratory test result [facility] ) <content>Addendum 1 Entered: 12/28/2020924</content>
<content></content>
<content>This addendum is to report [facility] consultation:</content>
<content></content>
<content>Lung, left, core needle biopsy:</content>
<content>Necrotizing granulomatous inflammation. Histoplasma yeast present.</content>
<content></content>
<content>See JIM ROSEMARIE [id number]</content>
<content>12/28/2020 - 924</content>
<content>Addendum Signed____ JENNIFER PEREZ MD 12/28/2020924</content>
<content> </content>
<content></content>
<content></content>
<content>FINAL DIAGNOSIS</content>
<content></content>
<content>Left lung, biopsy:</content>
<content>Predominantly necrotic tissue. (See comment).</content>
<content>Deeper H&E sections evaluated.</content>
<content></content>
<content>Comment: H&E sections show predominantly necrotic tissue with a few</content>
<content>inflammatory cells. The necrotic nature of the specimen precludes</content>
<content>definitive diagnosis. Re-biopsy may be helpful if clinically indicated.</content>
<content>12/13/2020 - 1323</content>
<content></content>
<content>CLINICAL DIAGNOSIS</content>
<content></content>
<content>Left upper lobe lung nodule</content>
<content>12/11/2020 - 144</content>
<content></content>
<content>GROSS DIAGNOSIS</content>
<content></content>
<content>Received in formalin labeled "left lung biopsy" and consists of a core</content>
<content>fragment of tissue measuring from 0.5 to 1.5 cm. All in one.</content>
<content>-OA</content>
<content>12/11/2020 - 1441</content>
<content></content>
<content>Signed JENNIFER PEREZ MD 12/13/2020 1325</content>
<content></content> ID Date Data Source [id number] 12/11/2020 09:36:00 AM EDT [facility] ([facility]) Name Value Range Interpretation Code Description Data Allyson rce(s) Supporting Document(s) Laboratory test finding (navigational concept) Laboratory test result [facility] ([facility]) ID Date Data Source [id number] 12/10/2020 08:56:00 AM EDT [facility] ([facility]) Name Value Range Interpretation Code Description Data Allyson rce(s) Supporting Document(s) Prothrombin Time 12.4 s 12.5-14.3 Normal (applies to non-numeric results) [facility] ([facility]) Inr 0.91 Normal (applies to non-numeric resul ts) [facility] ([facility]) THERAPUTIC HUMAN INR VALUES INDICATIONS NORMAL RANGES PROPHYLAXIS/TREATMENT OF: VENOUS THROMBOSIS 2.0-3.0 PULMONARY EMBOLISM 2.0-3.0 PREVENTION OF SYSTEMIC EMBOLISM FROM: TISSUE HEART VALVES 2.0-3.0 ACUTE MYOCARDIAL INFARCTION 2.0-3.0 VALVULAR HEART DISEASE 2.0-3.0 ATRIAL FIBRILLATION 2.0-3.0 MECHANICAL VALVES(HIGH RISK) 2.5-3.5 RECURRENT MYOCARDIAL INFARCTION 2.5-3.5 ID Date Data Source [id number] 12/10/2020 08:56:00 AM EDT [facility] ([facility]) Name Value Range Interpretation Code Description Data Allyson rce(s) Supporting Document(s) Platelets [#/volume] in Blood by Automated count 305 10 150-450 Normal (applies to non-numeric results) [facility] ([facility]) aPTT in Platelet poor plasma by Coagulation assay 26.4 s 24.2-38.5 Normal (applies to non-numeric results) [facility] ([facility], ) ID Date Data Source [id number] 11/21/2020 09:15:00 AM EST [facility] ([facility]) Name Value Range Interpretation Code Description Data Allyson rce(s) Supporting Document(s) PDFReport Laboratory test result [facility] ([facility]) FVC-Pred 3.77 L [facility] ([facility]) FVC-Pre 3.48 L [facility] ([facility]) FVC-%Pred-Pre 92 L [facility] ([facility]) Fev1-Pred 2.84 L [facility] ([facility]) FVC-LLN 2.99 L [facility] ([facility]) Fev1-%Pred-Pre 73 L [facility] ([facility]) Fev1-Pre 2.10 L [facility] ([facility]) Fev1-LLN 2.18 L [facility] ([facility]) Fev6-Pred 3.57 L [facility] ([facility]) Fev6-LLN 2.81 L [facility] ([facility]) Fev6-%Pred-Pre 97 L [facility] ([facility]) Fev6-Pre 3.48 L [facility] ([facility]) Kjb4kom-Cqbw 75 % [facility] ([facility]) Aie3aem-Tfv 60 % [facility] ([facility]) Lwz6coi-%Pred-Pre 79 % [facility] ([facility]) Nbi9xed-CED 66 % [facility] ([facility]) Cfj1hjl-Oofz 95 % [facility] ([facility]) Akw6vez-%Pred-Pre 105 % [facility] ([facility], ) FEFMax-Pred 7.85 L/E/sec [facility] ([facility]) Xnm1qhp-Tlq 100 % [facility] ([facility]) FEFMax-%Pred-Pre 46 L/E/sec [facility] ([facility]) FEFMax-Pre 3.61 L/E/sec [facility] ([facility]) Tlz6869-Ptko 2.39 L/E/sec [facility] ([facility]) FEFMax-LLN 5.91 L/E/sec [facility] ([facility]) Vyl5155-RRT 1.05 L/E/sec [facility] ([facility]) Mam2086-%Pred-Pre 54 L/E/sec [facility] ([facility]) Lly9392-Nho 1.29 L/E/sec [facility] ([facility]) ExpTime-Pre 5.96 sec [facility] ([facility]) Fzj6mrs7-Dzkc 79 % [facility] ([facility]) Xvu6fvh8-QGM 70 % [facility] ([facility]) Aof5qyw5-Vwi 60 % [facility] ([facility]) Loy2mqn8-%Pred-Pre 76 % [facility] ([facility]) ID Date Data Source [id number] 10/26/2020 10:55:07 AM [facility] Name Value Range Interpretation Code Description Data Allyson rce(s) Supporting Document(s) Progress Note [facility] HTODWe3rKiSQBnEs21/MJScvQURow0WlCShbELn1RSbcMNCkA6SuLOE2bP4iVIF2AFoURlNoEcGvRGS0 [facility] [file] ICAgICAgICAgICAgICAgICAgICAgICAgICAgICAgICAgICAgICAgICAgICAgICAgICAgICAgICAgICAg ICAgICAgICAgICAgICAgICAgICAgICANCiAgICAgICAgICAgICAgICAgICAgICAgICAgICAgICAgICAg ICAgICAgICAgICAgICAgICAgICAgICAgICAgICAgIC AgICAgICAgICAgICAgICAgICAgICAgICAgICAgICAgICANCiAgICAgICAgICAgICAgICAgICAgICAgIC AgICAgICAgICAgICAgICAgICAgICAgICAgICAgICAgICAgICAgICAgICAgICAgICAgICAgICAgICAgIC AgICAgICAgICAgICAgICANCiAgICAgICAgICAgICAg ICAgICAgICAgICAgICAgICAgICAgICAgICAgICAgICAgICAgICAgICAgICAgICAgICAgICAgICAgICAg ICAgICAgICAgICAgICAgICAgICAgICAgICANCiAgICAgICAgICAgICAgICAgICAgICAgICAgICAgICAg ICAgICAgICAgICAgICAgICAgICAgICAgICAgICAgIC AgICAgICAgICAgICAgICAgICAgICAgICAgICAgICAgICAgICANCiAgICAgICAgICAgICAgICAgICAgIC AgICAgICAgICAgICAgICAgICAgICAgICAgICAgICAgICAgICAgICAgICAgICAgICAgICAgICAgICAgIC AgICAgICAgICAgICAgICAgICANCiAgICAgICAgICAg ICAgICAgICAgICAgICAgICAgICAgICAgICAgICAgICAgICAgICAgICAgICAgICAgICAgICAgICAgICAg ICAgICAgICAgICAgICAgICAgICAgICAgICAgICANCiAgICAgICAgICAgICAgICAgICAgICAgICAgICAg ICAgICAgICAgICAgICAgICAgICAgICAgICAgICAgIC AgICAgICAgICAgICAgICAgICAgICAgICAgICAgICAgICAgICAgICANCiAgICAgICAgICAgICAgICAgIC AgICAgICAgICAgICAgICAgICAgICAgICAgICAgICAgICAgICAgICAgICAgICAgICAgICAgICAgICAgIC AgICAgICAgICAgICAgICAgICAgICANCiAgICAgICAg ICAgICAgICAgICAgICAgICAgICAgICAgICAgICAgICAgICAgICAgICAgICAgICAgICAgICAgICAgICAg ICAgICAgICAgICAgICAgICAgICAgICAgICAgICAgICANCjw/nAIcE8mjyMCiajD4W6tqWg2OXx0PLG4s u8UbSATrECncjfFvTmoLCjKvFRGmIvvFDzb0EOrrSN 8EbLQhQ9DvV6AwJZskGW8SSJTkDQNpqYPeVGWsUAHfVyV4HJAdUEidYT5HtXReDCopVZHaXXFaIoAwQW QzMSAcDGZoUALfPBXQIENyQHXkTzIpQXUkCVHrYU1TRXNjD451zuVgLc3UWe3GXeWaDO8fcq1ILamhTR MgGwmIKxd4LKkwUC9PmUCgmODzKCPpLHCMNwTeX7fb r5WrKrkzIGTLSEciTW3Gd4LmkBTsLLb+Np4XBZ8zz9VjMWivMGKaGE9qsl7UOTpCDfVsP0CrnJdhVUTu k3zrAEZhER7zzTWbYTQ4FNT3pvMkZABvZMF1KTdvWTIfLKMyPB8sVC3qABPbLNMmLvPcMJOJJW6IJQBe EZUplSIzSZVkTMTTWC2CLUwwRDF1KAYouaPgcYGcRP qlBW0HVZCebsYlTitdCLGRFZe+Cs1NHL3nx0MkHSj5PEJoFP2zpp5FCMxYIjYhG2E3mVLcB7D8UNfoSu 4AVMUwOWRgWuXpQMFTEPxpAQ2KFP8ftwJ7VL4XrBKiGUVjAYLmhKGsXKe0Y29oaNBpIBbmVQ1CSYR+Pi A+Xa3FKSYrHVMqGSBtZkJnAEXQBuObP6ZaQ6HLs6Uf Q5PcCH90mXtdsrAdTXdnNA1MTV9vMDPpTFCZCX8VgMJytY8eufDqHUZxRUEQPgXoU81soQLvAKOkREC7 TKZbXq0BRVXaJ7UhllQxnZzbkzFcTOCmOPDJFS9SAOfirnVnxQFvtQzjMC21eDqlVZ2DWi1NQaOeIQ8e fw1VnTSpAc8PPHR6HS9LPCYhXLHeIXHcZAJ9GEObRr XwWJonRRHtQJPeFRA9EUAoXIVzDG9SAtAlNWVmZvn4UJRpSQQdPMNfno0GPHVzDMBiGLTeAsKmGVHfIM OcNIidVGFmAAXaDRR2DQJiYELyZZ9XUsVvFFRtOBG1TlJiSUGcFBLxak3TXSBsUUUoJwfrDeIzVDFqNT FkZZelLYHzWJD8RKx1IKHlTMAkFU3SApQhZWOjSEV8 QBHoQCVxKFRszo6IBDLyFHSdEXz1CiJgEIBwQROsGJfuMFHcCJFjKUWxFXNeYTMhHT7NHjUgKXWrNQY2 SVQuAABzRPQllc6GGTOiEYQiSgfdQMYxIRWxYOJfEImyCZAoXGS7Anb3YBYmOZTrXD3FJqZyITHhTXF3 XACeNTCfTPNrcv1ISBFmFWNlRMC1CJEeQQMuKVUmEU qgYDWvNIT0WNchZICrCWXtLB5NYoQhBWQvHBm9PpPhJOIpIGVwwk1HIQLgGUJmYKQeUFJoIRAeRFMrEW efMCZtMLY9JWTiCNLvYQVkOQ3TTbWhDHOoKjR4HrZyDIThKFKntu4KBBWqYYTmTQr2ClUvCVRnENRaKZ hbSWOjJCEsRGJyMWLbPCKlBB1MNoQtVQCjIjE1YIMn JLSnWQWdws6ZJHIdKXBxGkogJHHvGUAxUAYcXCtzVBTyZYMwWOK2FMKtMAEiBD6IUsYoGSMvQbTvBqHd MIIpBLYxba9UJSQnZZDiBgCrEVEgBIZuEEYvHQneTUAlWJM9ZIO7YTLvGWJsEO3TQbGiONPfErM1WXEb VTTcCDAjez3BMKAfFRBeQVunXFWbYWXcZXNfVHxqPS TjTAK9AolbVADvGNXhJC3YLnZpALQxAaW3VAdzQVJrQJVyfc8POSXuUPUxBwGiCgXbKDNcJUGbAJtcTS AgUQT7JQd8QRBsFOEgUC1PWjOgDUXnIequMhDhGVSkEJZddq7LRDJrUVXeKpXbKQOlFUNaVOGmIRkwDX YtCTL0IQswYNIsNRVnWL7MBoDlGFWeHjfjCIWxFYTs RNGbsw2DTVZhREIqCFAmFPWiHNYlJPVeYXlbGKDcEVJ0KKyoMSDzYBEsDD3PQmAfBRuiUVDMVmf7UVbd C1u9MHZ8HR7WP4Gya7HpETRiVQAUPEkmEB3mkiVdXSGwYv2QQ8qEVzzrRDMgGXphXfH1TQB2HCVlNnz4 UOE1PRG8MrL1EXIjOB3wORL6CXU3DDO5JUZ9NdW2FC Z0QIreWLBeXEm8RGZlGMVbWbIrNS6OAu4ZSvT8AUO6fRJrYt5QXmi5SUCLViMlSV7ZUUt= ID Date Data Source [id number] 09/24/2020 08:58:28 AM EST [facility] Name Value Range Interpretation Code Description Data Allyson rce(s) Supporting Document(s) Progress Note [facility] OINGVj0tCiDFAdUh94/PMWtrZSOez9ZnPHafWFa0PPvuAFQmK3OuPEJ3gN5bYTS6IVlNBcDuOsAyDnO2 lbm [file] OTVlYmY+WY2fHQb+Oz4Kw7XjyyQ1tgBvKMg1Xrj8Pq6BBFGZA9HICe== ID Date Data Source [id number] 09/20/2020 09:22:03 AM EST [facility] Name Value Range Interpretation Code Description Data Allyson rce(s) Supporting Document(s) Progress Note [facility] MWMMJy9rDrXDTcCw76/RLYwqMKPcx4SyCFazFCk8HQixHWUuE9BwTBZ5xV1aBWE4SIwHFdLhMjChCrG6 lbm [file] DQo+Tg7Re5DmatD0xiLtNBnjFGdyXO5DNIRCD7ISPb== ID Date Data Source [id number] 08/30/2020 10:18:00 AM EST ANITA ([facility]) Name Value Range Interpretation Code Description Data Allyson rce(s) Supporting Document(s) Glucose [Mass/volume] in Urine collected for unspecified duratio n 246 Abnormal (applies to non-numeric results) Glucose [facility]) ID Date Data Source [id number] 08/30/2020 10:18:00 AM EST ANITA ([facility]) Name Value Range Interpretation Code Description Data Allyson rce(s) Supporting Document(s) Hemoglobin A1c/Hemoglobin.total in Blood 9.2 Abnormal (applies to non-numeric results) HbA1C [facility]) ID Date Data Source [id number] 08/20/2020 09:39:00 AM EST ANITA ([facility]) Name Value Range Interpretation Code Description Data Allyson rce(s) Supporting Document(s) Lipase [Enzymatic activity/volume] in Serum or Plasma 42 U/L Lipase [facility]) ID Date Data Source [id number] 08/20/2020 09:39:00 AM EST [facility]) Name Value Range Interpretation Code Description Data Allyson rce(s) Supporting Document(s) Amylase [Enzymatic activity/volume] in Serum or Plasma 45 U/L Amylase [facility]) ID Date Data Source [id number] 08/20/2020 09:39:00 AM EST [facility]) Name Value Range Interpretation Code Description Data Allyson rce(s) Supporting Document(s) Thyrotropin [Units/volume] in Serum or Plasma by Detec tion limit <= 0.05 mIU/L 1.970 uIU/mL TSH [facility]) ID Date Data Source [id number] 08/20/2020 09:39:00 AM EST ANITA ([facility]) Name Value Range Interpretation Code Description Data Allyson rce(s) Supporting Document(s) Thyroxine (T4) free [Mass/volume] in Serum or Plasma 1.15 ng/dL T4,Free(Direct) ANITA ([facility]) ID Date Data Source [id number] 08/20/2020 09:39:00 AM EST ANITA ([facility]) Name Value Range Interpretation Code Description Data Allyson rce(s) Supporting Document(s) Leukocytes [#/volume] in Blood by Automated count 9.8 x10E3/uL WBC ANITA ([facility]) Erythrocytes [#/volume] in Blood by Automated count 4.76 x10E6/uL RBC ANITA ([facility]) Hemoglobin [Mass/volume] in Blood 15.8 g/dL He moglobin ANITA ([facility]) Hematocrit [Volume Fraction] of Blood by Automated count 45.1 % Hematocrit ANITA ([facility]) Erythrocyte mean corpuscular volume [Entitic volume] by Automate d count 95 fL MCV [facility]) Erythrocyte mean corpuscular hemoglobin concentration [Mass/volume] by Automated count 35.0 g/dL MCHC [facility]) Erythrocyte mean corpuscular hemoglobin [Entitic mass] by Automated count 33.2 pg Above high normal MCH [facility]) Immature granulocytes/100 leukocytes in Blood 1 % Immature Granulocytes ANITA ([facility]) Lymphocytes/100 leukocytes in Blood by Automated count 35 % Lymphs ANITA ([facility]) Neutrophils/100 leukocytes in Blood by Automated count 49 % Neutrophils ANITA ([facility]) Monocytes/100 leukocytes in Blood by Automated count 9 % Monocytes ANITA ([facility]) Eosinophils/100 leukocytes in Blood by Automated count 4 % Eos ANITA ([facility]) Platelets [#/volume] in Blood by Automated count 280 x10E3/uL Platelets ANITA ([facility]) Morphology [Interpretation] in Blood Narrative N/A Hematology Comments: ANITA ([facility]) Basophils/100 leukocytes in Blood by Automated count 2 % Basos ANITA ([facility]) Lymphocytes [#/volume] in Blood by Automated count 3.4 x10E3/uL Above high normal Lymphs (Absolute) ANITA ([facility]) Neutrophils [#/volume] in Blood by Automated count 4.9 x10E3/uL Neutrophils (Absolute) ANITA ([facility]) Immature granulocytes [#/volume] in Blood 0.1 x10E3/uL Immature Grans (Abs) ANITA ([facility]) Eosinophils [#/volume] in Blood by Automated count 0.4 x10E3/uL Eos (Absolute) ANITA ([facility]) Monocytes [#/volume] in Blood by Automated count 0.9 x10E3/uL Monocytes(Absolute) ANITA ([facility]) Basophils [#/volume] in Blood by Automated count 0.2 x10E3/uL Baso (Absolute) ANITA ([facility]) Erythrocyte distribution width [Ratio] by Automated count 12.5 % RDW ANITA ([facility]) Nucleated erythrocytes/100 leukocytes [Ratio] in Blood by Automa james count N/A NRBC ANITA ([facility]) Immature cells [#/volume] in Blood N/A I mmature Cells ANITA ([facility]) ID Date Data Source [id number] 08/21/2020 04:05:00 AM EST [facility] Name Value Range Interpretation Code Description Data Allyson rce(s) Supporting Document(s) WBC 9.8 x10E3/uL 3.4-10.8 [facility] RBC 4.76 x10E6/uL 4.14-5.80 [facility] Hemoglobin 15.8 g/dL 13.0-17.7 [facility] Hematocrit 45.1 % 37.5-51.0 [facility] MCV 95 fL 79-97 [facility] MCH 33.2 pg 26.6-33.0 Above high normal [facility] MCHC 35.0 g/dL 31.5-35.7 [facility] RDW 12.5 % 11.6-15.4 [facility] Platelets 280 x10E3/uL 150-450 [facility] Neutrophils 49 % Not Estab. [facility] Lymphs 35 % Not Estab. [facility] Monocytes 9 % Not Estab. [facility] Eos 4 % Not Estab. [facility] Basos 2 % Not Estab. [facility] Neutrophils (Absolute) 4.9 x10E3/uL 1.4-7.0 [facility] Lymphs (Absolute) 3.4 x10E3/uL 0.7-3.1 Above high normal [facility] Monocytes(Absolute) 0.9 x10E3/uL 0.1-0.9 [facility] Eos (Absolute) 0.4 x10E3/uL 0.0-0.4 [facility] Baso (Absolute) 0.2 x10E3/uL 0.0-0.2 [facility] Immature Granulocytes 1 % Not Estab. [facility] Immature Grans (Abs) 0.1 x10E3/uL 0.0-0.1 [facility] ID Date Data Source [id number] 08/21/2020 06:06:00 AM EST [facility] Name Value Range Interpretation Code Description Data Allyson rce(s) Supporting Document(s) T4,Free(Direct) 1.15 ng/dL 0.82-1.77 [facility] ID Date Data Source [id number] 08/21/2020 08:08:00 AM EST [facility] Name Value Range Interpretation Code Description Data Allyson rce(s) Supporting Document(s) Amylase 45 U/L 31-110 [facility] ID Date Data Source [id number] 08/21/2020 06:06:00 AM EST [facility] Name Value Range Interpretation Code Description Data Allyson rce(s) Supporting Document(s) TSH 1.970 uIU/mL 0.450-4.500 [facility] ID Date Data Source [id number] 08/21/2020 08:08:00 AM EST [facility] Name Value Range Interpretation Code Description Data Allyson rce(s) Supporting Document(s) Lipase 42 U/L 13-78 [facility] ID Date Data Source [id number] 07/02/2020 11:55:52 AM [facility] Name Value Range Interpretation Code Description Data Allyson rce(s) Supporting Document(s) Progress Note [facility] MXCDBh7hMwJBPtEh78/GMMhcFRXzg2HcCYfbGBk6QUsrACEwP3KjPTT7rR7rWYH2CAtLKuDyIfBmEVE1 lbm [file] AFBertH8RV/4+NCVQO7nB7pgEk6RYaPkjspZyv/[employer] [file] ICAgICAgICAgICAgICAgICAgICAgICAgICAgICAgIC QpTVHwJOQqLXGiLUXkCITxOSPiBLGnDHIoSJClHLFkOHWnLFZhBXVrSYOwQQCjVSIxVYKeXN9SSEHxPN AgICAgICAgICAgICAgICAgICAgICAgICAgICAgICAgICAgICAgICAgICAgICAgICAgICAgICAgICAgIC AgICAgICAgICAgICAgICAgICAgICAgICAgICAgICAg ZUElVE1CCBIqHTEmGPHzFJQxCFWoZFZjODWrTWTiLZNcWXJnHEPhXFLmCNQoCJQzNTDzSABdDQHjLXFz KCUzECCyQJOsXLZvWXOkYBRjHPTvNRZfCVZyMJVjZWUvUIYvGSOuFPZmMHMdQH9WOOIiMFNfHFPhUFUv ICAgICAgICAgICAgICAgICAgICAgICAgICAgICAgIC TrGMWeTMEkNWYqMQPuQXLfHUVzQKErYMJiZDUmRFHoLKXjVKEaPFDjHUAyBQBdOLUcYSKdQRWjHD5CEZ AgICAgICAgICAgICAgICAgICAgICAgICAgICAgICAgICAgICAgICAgICAgICAgICAgICAgICAgICAgIC AgICAgICAgICAgICAgICAgICAgICAgICAgICAgICAg YVScNAAuAJ7KLNXvKQNtQWCzYDZmIPHmDKVbGZAyDZPhKSZmFSUjEDQeODJhZKCxMATnIVYlTQWjDFGx ENVuKAOgVXUtFOJfUCGwQDCoWYPoVZMzSCGeHCBjERHuRVIqKTHmAMBzWRMvCOSoYS9CYTHvRTXeKHNz ICAgICAgICAgICAgICAgICAgICAgICAgICAgICAgIC AgICAgICAgICAgICAgICAgICAgICAgICAgICAgICAgICAgICAgICAgICAgICAgICAgICAgICAgICAgIA 0KICAgICAgICAgICAgICAgICAgICAgICAgICAgICAgICAgICAgICAgICAgICAgICAgICAgICAgICAgIC AgICAgICAgICAgICAgICAgICAgICAgICAgICAgICAg GYCyGSAjOWIrYJ1BBLWkTRYxMZGnFKNnSHNkEYDzNFCjNCRrGLIfCUFuBGPhECNkRXKrXVLrTDGlJRGx ICCjBBRiYLTdTNXtUZNtZYNcNNDxXVYhSEMoUQUmJGLjSPFnOCAlIFDjYQDhYPUpUPGqDJ4WWY56cYJr c1J4QQDjHQ0whnq/Kz2KLMxafmBgnMAyNZ4WBwAqNG 4wal8ATkEzYN1hca7LKJhHJaQsE3P8aEChPCGoREUIXyJyT03kUYuuCv52YGjaQSUvHpZzBVv8Tq3FYx LdP7ycLITdOzD3LXOaMdD5QPEyEiM8HDJtChVlIBZxMDSdNZIrAACHBZL3TRQfQmEoSjZgCBTlWNrmKP EPOL2UXaIvK1EakJ72JXhURe3+DQplbmRvYmoNCjM5 VXCen3TwLNm8HA4RDLEpAiynt3JxPWMoXAVPPDboZE1ADBI5RNOhZZNwPe9MYTZbX565tmWrQW6BIn8J LbFtTN8cwg0SJGLnCPVnHlxPVcz1RLgcUW5KuCXxQTbPbn8svsTqtgDHi3KgyyBzjLIKRC9uZ7h6JByn XXZfeWD7QVQdsuatYRBoHGJzHENgHO6qOZNxDFOmLg AdJZVTVI5DPUJiMDCiaQTeNKDbJIRJWJ8MIAhoMGO3XHUmnsDfkOFsXSogZE2QHFZkigEaCamyGMTPHU o+Ft5SKD8tx7UwSXl4ZYTxNJ0biw8GRCdAKvZfS6P1qQRjG5W4CMfdHw3JOVRuCCXnPusfFWLAUYwwSN 9QPB8pumF3JF5ZjHQkGSQiIWIvkENlEIx0M53uvWDm TIhuCV4PNML+Jose Manuel+Qy1RTYQaGJRsCVYiPaRfETSJLuHcT5HdH6CPh4MwG1RkHG37iPqiyjSnBZdeQK5P RQ1oNWCeXTYSOG7OpONszP9khlMrJCPoGXHHWvLrT49mxUAlKFBlOVM8XGIqTl9ISOVpS9JscyWgmKid auWqJIVaOLFNDF7QLUucpzZhwMQadPaiFI02cYotNH 1PPg8RVlSkDT4kbn8JkNQiKc7TVSW8Nh1LYLTrAVAiZWSgXNL9SCYbJyDtNIkzGPFtZAWhQZX7DXPfRG YqUW0CBgMzLIDcHNC4MgByYNMmGLErgv4ZFKZdFIV1NpW0YtNlCMGsTBFaOHkrFBCpFDGxQZF8GYDgTU SuFF3WBgZxFYNkSKMlKfIfVLRvWNNrop0PAVYyAHMz PvIzEUNkSKKwTFMeNMvgDTUmSJM6RPZ7YQOlXGXcPO4UXdEfQXCrQHIrEZOqNUNcCRVkdc8RPCYhMGCl PZpqXnHbXHAuUHQhIPohKCQuXPH5LRK9ICOuIPGcJS2MKpCfEAFeIAYjYUsyZDDsHCWbrl3ZSNWaEIIl XvOvXMSiFFZgCIHrISjkSQUbNPP9PGIiXEMfSNYhWQ 7IYwKiNLFlQTQ2LkyoYTQuMVEpat7KYQImAUBkKtG7COEaIITxCEAtDTnzILGeIIR1MkV8SFNvZVRjGB 2KKaWrWUKoSoK5SJGqJSXmNRMscx1JFZXjZKSfMVk7RwVwQDCuHWGqTLpqDLOoMJZnJXN4VQZnITPwVU 3OFnOlYQFyOdX6PQIpZAHzKQZtmw0IHLNhLVZaRZvc FUOcYNRvGNGgNElcDGMnETN1XYYiOKDjTMHqKH6QRzGbNHIaWjIbGOZkNTPnDMUysk5SLMGxNQJoVrM9 VjGmVCQkLEDzYXbmFQCsSAX7ZrF4QRObQVPhIT8PQjTvITIgPgI4HBXgBDRsKILafw2PWIDxNHCgVrp6 NiGkQCWkQTTaUJjfEFBiRXK6UWp4FVBrIOGhKP6UYg ApISSdKwi5HXzuDPFtMSTpnt9CIQMaVZQpXMR8PkCnUIUeMVSgOIdgWEGiQTI9XXUmUYWbNYQxLR9ADv BeHUQyTrq1UWrmDVOmSACchx3JWVTmMGVvTZasHPCeICNeGXNmAPyeLPMvHEZqMLp9TPQwZADwIN3NIi EzNZKnUSIdKUSgQQFhYOUcrx9SOFCeXHR8LNAmCJXy TZWsWIFdRHeqTCVdZEWdMXW2FOCkSPOiNE7NRmUlWPAaUKC5XYBnQFByUIQqlb6SFLGkNIF9IwWdCgCk GVVhAEKyILjtGNXeEORaHiq7YHIsAFYyHW0LNjYmKVBnQRA3NJAkOAGaFHWnul6TfJLmvKwhad7AJWjY Ub0WcKqjSDSgSWukOg6fjZL8MDRyNTKGOu4RffPpLO AzGKHQUAwqCZApCVWzYIOkWDT0IhXmAVW7T8FcAUHfSHQmREl4KKakLpF2TiQ0AYZgPpZzPwtuPCIlTx UkUPP1FxKyVIF7SJGaVXPzXWy+CZ2cGXo+Lg3Xr7YxtcY1xyFaVKo5Dgy7Nz7CBVTGJ2WFJp== Procedure Social History Code Duration Value Status Description Data Source(s ) Alcohol intake 01/28/2021 12:00:00 AM EDT Current drinker of al cohol (finding) completed Current drinker of alcohol (finding) [facility] Tobacco use and exposure 01/28/2021 12:00:00 AM EDT Never used co mpleted Never used [facility] Smoking 01/28/2021 12:00:00 AM EDT Current every day smoker co mpleted Current every day smoker [facility] Alcohol intake 07/02/2020 12:00:00 AM EDT Current drinker of al cohol (finding) completed Current drinker of alcohol (finding) [facility] Vital Signs ID Date Data Source UNK Name Value Range Interpretation Code Description Data Source(s) Systolic blood pressure 120 mm[Hg] 120 mm[Hg] M EDENT ([facility], ) Diastolic blood pressure 70 mm[Hg] 70 mm[Hg] [facility] ([facility], ) Heart rate 90 /min 90 /min [facility] ([facility]) Oxygen saturation in Arterial blood by Pulse oximetry 99 % 99 % [facility] ([facility]) Body height 64 [in_i] 64 [in_i] [facility] ([facility]) 5'4" Body weight 192.00 [lb_av] 192.00 [lb_av] MEDEN T ([facility]) Body mass index (BMI) [Ratio] 33.0 kg/m2 33.0 k g/m2 [facility] ([facility]) [place] body weight 130 [lb_av] 130 [lb_av] MEDEN T ([facility]) Body weight 87.091 kg 87.091 kg [facility] ([facility]) Body surface area Derived from formula 1.92 m2 1.92 m2 [facility] ([facility]) Oxygen saturation in Arterial blood by Pulse oximetry 98 % 98 % [facility] ([facility]) Body temperature 96.5 [degF] 96.5 [degF] [facility] ([facility]) Body height 64 [in_i] 64 [in_i] [facility] 5'4" Body weight 194.00 [lb_av] 194.00 [lb_av] MEDEN T ([facility]) Body mass index (BMI) [Ratio] 33.3 kg/m2 33.3 k g/m2 [facility] ([facility]) [place] body weight 130 [lb_av] 130 [lb_av] MEDEN T ([facility]) Body weight 87.998 kg 87.998 kg [facility] ([facility]) Body surface area Derived from formula 1.93 m2 1.93 m2 [facility] ([facility]) Systolic blood pressure 110 mm[Hg] 110 mm[Hg] EDENT ([facility]) Diastolic blood pressure 74 mm[Hg] 74 mm[Hg] [facility] ([facility]) Heart rate 94 /min 94 /min [facility] ([facility]) Oxygen saturation in Arterial blood by Pulse oximetry 98 % 98 % [facility] ([facility]) Body temperature 96.5 [degF] 96.5 [degF] [facility] Body height 64 [in_i] 64 [in_i] MED[facility] ([facility]) 5'4" Body weight 194.00 [lb_av] 194.00 [lb_av] MEDEN T ([facility]) Body mass index (BMI) [Ratio] 33.3 kg/m2 33.3 k g/m2 [facility] ([facility]) [place] body weight 130 [lb_av] 130 [lb_av] MED[facility] T ([facility]) Body weight 87.998 kg 87.998 kg [facility] ([facility]) Body surface area Derived from formula 1.93 m2 1.93 m2 [facility] ([facility]) Oxygen saturation in Arterial blood by Pulse oximetry 98 % 98 % [facility] Body height 64 [in_i] 64 [in_i] [facility] ([facility]) 5'4" Body weight 193.25 [lb_av] 193.25 [lb_av] MEDEN T ([facility]) Body mass index (BMI) [Ratio] 33.2 kg/m2 33.2 k g/m2 [facility] ([facility]) Body temperature 97.5 [degF] 97.5 [degF] [facility] Systolic blood pressure 119 mm[Hg] 119 mm[Hg] [facility] ([facility] Aceved[facility]) Diastolic blood pressure 74 mm[Hg] 74 mm[Hg] [facility] Heart rate 88 /min 88 /min [facility] Systolic blood pressure 128 mm[Hg] 128 mm[Hg] [facility] ([facility]) Diastolic blood pressure 80 mm[Hg] 80 mm[Hg] ANITA ([facility]) Heart rate 100 /min 100 /min ANITA ([facility]) Respiratory rate 24 /min 24 /min JACK ([facility]) Body temperature 96.8 [degF] 96.8 [degF] [facility] ([facility]) Body height 64 [in_i] 64 [in_i] JACK ([facility]) Body weight 191 [lb_av] 191 [lb_av] ANITA ([facility]) Body mass index (BMI) [Ratio] 32.8 kg/m2 32.8 k g/m2 ANITA ([facility]) Body surface area Derived from formula 1.92 m2 1.92 m2 ANITA ([facility]) Oxygen saturation in Arterial blood by Pulse oximetry 98 % 98 % ANITA ([facility]) Oxygen saturation in Arterial blood by Pulse oximetry 97 % 97 % [facility] ([facility]) Body temperature 96.6 [degF] 96.6 [degF] [facility] ([facility]) Body height 64 [in_i] 64 [in_i] [facility] ([facility]) 5'4" Body weight 189.00 [lb_av] 189.00 [lb_av] [facility] Body mass index (BMI) [Ratio] 32.4 kg/m2 32.4 k g/m2 [facility] ([facility]) [place] body weight 130 [lb_av] 130 [lb_av] MED[facility] T ([facility]) Body weight 85.730 kg 85.730 kg [facility] ([facility]) Body surface area Derived from formula 1.91 m2 1.91 m2 [facility] ([facility]) Systolic blood pressure 110 mm[Hg] 110 mm[Hg] [facility] Diastolic blood pressure 70 mm[Hg] 70 mm[Hg] [facility] ([facility]) Heart rate 99 /min 99 /min [facility] ([facility]) Oxygen saturation in Arterial blood by Pulse oximetry 97 % 97 % [facility] ([facility]) Body temperature 96.6 [degF] 96.6 [degF] [facility] ([facility]) Body height 64 [in_i] 64 [in_i] [facility] ([facility]) 5'4" Body weight 189.00 [lb_av] 189.00 [lb_av] MEDEN T ([facility]) Body mass index (BMI) [Ratio] 32.4 kg/m2 32.4 k g/m2 [facility] ([facility]) [place] body weight 130 [lb_av] 130 [lb_av] MEDEN T ([facility]) Body weight 85.730 kg 85.730 kg [facility] ([facility]) Body surface area Derived from formula 1.91 m2 1.91 m2 [facility] ([facility]) Body mass index (BMI) [Ratio] 33.3 kg/m2 33.3 k g/m2 [facility] ([facility]) [place] body weight 130 [lb_av] 130 [lb_av] [facility] Body weight 87.998 kg 87.998 kg [facility] ([facility]) Body surface area Derived from formula 1.93 m2 1.93 m2 [facility] ([facility]) Diastolic blood pressure 70 mm[Hg] 70 mm[Hg] [facility] ([facility]) Heart rate 86 /min 86 /min [facility] ([facility]) Oxygen saturation in Arterial blood by Pulse oximetry 93 % 93 % [facility] ([facility]) Body temperature 96.6 [degF] 96.6 [degF] [facility] ([facility]) Body height 64 [in_i] 64 [in_i] [facility] ([facility]) 5'4" Systolic blood pressure 110 mm[Hg] 110 mm[Hg] M EDENT ([facility]) Body weight 194.00 [lb_av] 194.00 [lb_av] MEDEN T ([facility]) Body height 64 [in_i] 64 [in_i] JACK ([facility]) [place] body weight 118 [lb_av] 118 [lb_av] MED[facility] T ([facility], ) Respiratory rate 12 /min 12 /min [facility] ( [facility], ) Body height 62 [in_i] 62 [in_i] [facility] ([facility], ) 5'2" Body weight 187.00 [lb_av] 187.00 [lb_av] MEDEN T ([facility], ) Body mass index (BMI) [Ratio] 34.2 kg/m2 34.2 k g/m2 [facility] ([facility], ) Systolic blood pressure 122 mm[Hg] 122 mm[Hg] G [facility] ([facility]) Diastolic blood pressure 78 mm[Hg] 78 mm[Hg] ANITA ([facility]) Heart rate 90 /min 90 /min [facility] ([facility]) Respiratory rate 24 /min 24 /min [facility] ([facility]) Body temperature 96.6 [degF] 96.6 [degF] [facility] ([facility]) Body height 64 [in_i] 64 [in_i] JACK ([facility]) Body weight 194 [lb_av] 194 [lb_av] ANITA ([facility]) Body mass index (BMI) [Ratio] 33.3 kg/m2 33.3 k g/m2 [facility] ([facility]) Body surface area Derived from formula 1.93 m2 1.93 m2 [facility] ([facility]) Oxygen saturation in Arterial blood by Pulse oximetry 93 % 93 % [facility] ([facility]) Inhaled oxygen flow rate 0 L/min 0 L/min [facility] ([facility]) Inhaled oxygen concentration 21 % 21 % [facility] ([facility]) Patient Treatment Plan of Care Planned Activity Planned Date Details Description Data Source (s) Trulicity 3 MG/0.5ML Subcutaneous Solution Pen-injecto r (Dulaglutide) 01/28/2021 12:00:00 AM T [facility] Simvastatin 40 MG Oral Tablet [Zocor] 01/02/2021 12:00:00 AM EDT [facility] ([facility]) ezetimibe 10 MG Oral Tablet [Zetia] [facility] Aspirin 81 MG Chewable Tablet [facility] Atenolol 50 MG Oral Tablet 01/02/2021 12:00:[address] [facility] ([facility]) 12 HR Bupropion Hydrochloride 150 MG Extended Release Oral Tablet 01/02/2021 12:00:[address] [facility] ([facility]) Citalopram 20 MG Oral Tablet 01/02/2021 12:00:[address] [facility] ([facility]) clopidogrel 75 MG Oral Tablet 01/02/2021 12:00:[address] [facility] ([facility]) Cyclobenzaprine hydrochloride 10 MG Oral Tablet 01/02/2021 12:00:[address] [facility]) gabapentin 600 MG Oral Tablet 01/02/2021 12:00:[address] [facility] ([facility]) 7 ACTUAT umeclidinium 0.0625 MG/ACTUAT Dry Powder Inha ler [Incruse] 01/02/2021 12:00:[address] [facility] ([facility]) Metformin hydrochloride 500 MG Oral Tablet 01/02/2021 12:00:00 AM E [facility] ([facility]) 3 ML Insulin, Aspart, Human 100 UNT/ML Pen Injector [N ovoLog] 01/02/2021 12:00:[address] [facility] ([facility]) Ramipril 10 MG Oral Capsule 01/02/2021 12:00:[address] [facility] ([facility]) ropinirole 0.5 MG Oral Tablet 01/02/2021 12:00:[address] [facility] ([facility]) Vitamin D (Ergocalciferol) 1.25 MG (71099 UT) Oral Cap titi 01/02/2021 12:00:[address] [facility] ([facility]) Amylases 78570 UNT / Endopeptidases 1900 0 UNT / Lipase 6000 UNT Delayed Release Oral Capsule [Creon] 12/22/2020 12:00:00 AM EDT [facility] ([facility]) Vitamin D (Ergocalciferol) 1.25 MG (23083 UT) Oral Cap titi 10/29/2020 12:00:00 AM EST [facility]) ropinirole 0.5 MG Oral Tablet 10/26/2020 12:00:00 AM EST [facility]) Atenolol 50 MG Oral Tablet 10/26/2020 12:00:00 AM [facility]) 12 HR Bupropion Hydrochloride 150 MG Extended Release Oral Tablet 10/26/2020 12:00:00 AM [facility]) Citalopram 20 MG Oral Tablet 10/26/2020 12:00:00 AM [facility]) Cyclobenzaprine hydrochloride 10 MG Oral Tablet 10/26/2020 12:00:00 AM [facility]) Ramipril 10 MG Oral Capsule 10/26/2020 12:00:00 AM [facility]) clopidogrel 75 MG Oral Tablet 10/26/2020 12:00:00 AM [facility]) Omeprazole 20 MG Delayed Release Oral Capsule 10/26/2020 12:00:00 A M [facility]) 12 HR Bupropion Hydrochloride 150 MG Extended Release Oral Tablet 10/03/2020 12:00:00 AM [facility] ([facility]) Cyclobenzaprine hydrochloride 10 MG Oral Tablet 10/03/2020 12:00:00 AM [facility]) Ergocalciferol 75681 UNT Oral Capsule [Drisdol] 10/03/2020 12:00:00 AM [facility]) gabapentin 600 MG Oral Tablet 10/03/2020 12:00:00 AM [facility]) 7 ACTUAT umeclidinium 0.0625 MG/ACTUAT Dry Powder Inha ler [Incruse] 10/03/2020 12:00:00 AM [facility]) Metformin hydrochloride 500 MG Oral Tablet 10/03/2020 12:00:00 AM E [facility] ([facility]) 3 ML Insulin, Aspart, Human 100 UNT/ML Pen Injector [N ovoLog] 10/03/2020 12:00:00 AM [facility]) Omeprazole 20 MG Delayed Release Oral Capsule 10/03/2020 12:00:00 A M [facility]) clopidogrel 75 MG Oral Tablet [Plavix] 10/03/2020 12:00:00 AM [facility]) Ramipril 10 MG Oral Capsule 10/03/2020 12:00:00 AM [facility]) ropinirole 0.5 MG Oral Tablet 10/03/2020 12:00:00 AM [facility]) ezetimibe 10 MG Oral Tablet [Zetia] 10/03/2020 12:00:00 AM [facility]) Simvastatin 40 MG Oral Tablet [Zocor] 10/03/2020 12:00:00 AM [facility]) Amylases 47872 UNT / Endopeptidases 1900 0 UNT / Lipase 6000 UNT Delayed Release Oral Capsule [Creon] 10/03/2020 12:00:00 AM [facility]) Aspirin 81 MG Chewable Tablet 10/03/2020 12:00:00 AM [facility]) Atenolol 50 MG Oral Tablet 10/03/2020 12:00:00 AM [facility]) Citalopram 20 MG Oral Tablet 10/03/2020 12:00:00 AM [facility]) Pen [place] 5/16" 31G X 8 MM Miscellaneous 10/03/2020 12:00:00 AM E [facility] ([facility]) sitagliptin 100 MG Oral Tablet [Januvia] 09/30/2020 12:00:00 AM [facility]) Ergocalciferol 47421 UNT Oral Capsule [Drisdol] 07/16/2020 12:00:00 AM EDT [facility]) Cyclobenzaprine hydrochloride 10 MG Oral Tablet 07/16/2020 12:00:00 AM EDT [facility] ([facility]) gabapentin 600 MG Oral Tablet 07/16/2020 12:00:00 AM EDT [facility] ([facility]) Simvastatin 40 MG Oral Tablet [Zocor] 07/16/2020 12:00:00 AM EDT [facility] ([facility]) ezetimibe 10 MG Oral Tablet [Zetia] 07/16/2020 12:00:00 AM EDT [facility]) ropinirole 0.5 MG Oral Tablet 07/16/2020 12:00:00 AM EDT [facility] ([facility]) Ramipril 10 MG Oral Capsule 07/16/2020 12:00:00 AM EDT [facility] ([facility]) clopidogrel 75 MG Oral Tablet [Plavix] 07/16/2020 12:00:00 AM EDT [facility] ([facility]) Omeprazole 20 MG Delayed Release Oral Capsule 07/16/2020 12:00:[address] [facility]) 12 HR Bupropion Hydrochloride 150 MG Extended Release Oral Tablet 07/16/2020 12:00:[address] [facility] ([facility]) Metformin hydrochloride 500 MG Oral Tablet 07/16/2020 12:00:00 AM E DT [facility] ([facility]) 7 ACTUAT umeclidinium 0.0625 MG/ACTUAT Dry Powder Inha ler [Incruse] 07/16/2020 12:00:00 AM EDT [facility] ([facility]) 3 ML Insulin, Aspart, Human 100 UNT/ML Pen Injector [N ovoLog] 07/16/2020 12:00:00 AM T [facility] ([facility]) Citalopram 20 MG Oral Tablet 07/16/2020 12:00:00 AM T [facility] ([facility]) sitagliptin 100 MG Oral Tablet [Januvia] 07/16/2020 12:00:00 AM EDT [facility] ([facility]) Aspirin 81 MG Chewable Tablet 07/16/2020 12:00:00 AM EDT [facility]) Atenolol 50 MG Oral Tablet 07/16/2020 12:00:00 AM EDT [facility]) Amylases 08091 UNT / Endopeptidases 1900 0 UNT / Lipase 6000 UNT Delayed Release Oral Capsule [Creon] 06/05/2020 12:00:00 AM EDT [facility]) Cyclobenzaprine hydrochloride 10 MG Oral Tablet 05/15/2020 12:00:00 AM EDT [facility]) Ergocalciferol 94707 UNT Oral Capsule [Drisdol] 05/15/2020 12:00:00 AM EDT [facility]) gabapentin 600 MG Oral Tablet 05/15/2020 12:00:00 AM T [facility]) 7 ACTUAT umeclidinium 0.0625 MG/ACTUAT Dry Powder Inha ler [Incruse] 05/15/2020 12:00:00 AM EDT [facility] ([facility]) sitagliptin 100 MG Oral Tablet [Januvia] 05/15/2020 12:00:[address] [facility]) 3 ML Insulin, Aspart, Human 100 UNT/ML Pen Injector [N ovoLog] 05/15/2020 12:00:[address] [facility] ([facility]) clopidogrel 75 MG Oral Tablet [Plavix] 05/15/2020 12:00:00 AM EDT [facility]) Omeprazole 20 MG Delayed Release Oral Capsule 05/15/2020 [facility] ezetimibe 10 MG Oral Tablet [Zetia] 05/15/2020 12:00:00 AM EDT [facility]) Simvastatin 40 MG Oral Tablet [Zocor] 05/15/2020 12:00:00 AM T [facility]) Metformin hydrochloride 500 MG Oral Tablet 05/15/2020 12:00:00 AM E [facility] ([facility]) Ramipril 10 MG Oral Capsule 05/15/2020 12:00:00 AM EDT [facility] ([facility]) ropinirole 0.5 MG Oral Tablet 05/15/2020 12:00:00 AM EDT [facility] ([facility]) Pen [place] 5/16" 31G X 8 MM Miscellaneous 05/15/2020 12:00:00 AM E [facility] ([facility]) Aspirin 81 MG Chewable Tablet 05/15/2020 12:00:00 AM EDT [facility] ([facility]) 12 HR Bupropion Hydrochloride 150 MG Extended Release Oral Tablet 05/15/2020 12:00:00 AM EDT [facility] ([facility]) Citalopram 20 MG Oral Tablet 05/15/2020 12:00:00 AM EDT [facility] ([facility]) Atenolol 50 MG Oral Tablet 05/15/2020 12:00:00 AM EDT [facility] ([facility]) 0.5 ML dulaglutide 3 MG/ML Auto-Injector 04/11/2020 12:00:00 AM [facility]
--- OUTSIDE RECORDS SUMMARY | 2021-08-16 11:38 | CCD ---
Author Author [facility] Organization [facility] Address Unknown Phone Unavailable Care Team Providers Care Death Clearance Coordinator Name Role Phone Nan, Judi Dukes MD [...] Unavailable Unavailable Radha Atkins MD Unavailable Unavailable aRdha Atkins MD Unavailable Unavailable Radha Atkins MD [...] Unavailable Unavailable Radha Atkins MD Unavailable Unavailable Rdaha Atkins MD Unavailable Unavailable Radha Atkins MD Unavailable Unavailable Radha Atkins MD Unavailable Unavailable Radha Atkins MD Unavailable Unavailable Radha Atkins MD Unavailable Unavailable Radha Atkins MD Unavailable Unavailable Radha Atkins MD Unavailable Unavailable Radha Atkins MD Unavailable Unavailable Radha Atkins MD Unavailable Unavailable Radha Atkins MD Unavailable Unavailable Radha Atkins MD Unavailable Unavailable [employer], Mariae Diane BEEF RIBBER Unavailable Unavailable Ned, Mariae [place] BEEF RIBBER Unavailable Unavailable Ned, Mariae Diane BEEF RIBBER Unavailable Unavailable [employer], Mariae [place] BEEF [employer]IBBER Unavailable Unavailable [employer], Mariae [place] BEEF RIBBER Unavailable Unavailable [employer], Mariae [place] BEEF RIBBER Unavailable Unavailable Ned, Mariae Diane BEEF RIBBER Unavailable Unavailable [employer], Mariae Diane BEEF RIBBER Unavailable Unavailable [employer], Mariae Diane BEEF RIBBER Unavailable Unavailable Ned, Mariae [place] BEEF RIBBER Unavailable Unavailable Ned, Mariae [place] BEEF [employer]IBBER Unavailable Unavailable [employer], Mariae [place] BEEF RIBBER Unavailable Unavailable Ned, Mariae Diane BEEF RIBBER Unavailable Unavailable [employer], Mariae Diane BEEF RIBBER Unavailable Unavailable [employer], Mariae Diane BEEF RIBBER Unavailable Unavailable [employer], Mariae [place] BEEF RIBBER Unavailable Unavailable Ned, Mariae Diane BEE[employer]IB[employer] Unavailable Unavailable Natty Bray MD Unavailable Unavailable [...] is protected by Article 27-F of the [facility] Public [employer] law. If you continue you may have access to information: Regarding HIV / AIDS; Provided by facilities licensed or operated by the [facility] Office of Mental Health; or Provided by the [facility] Office for People With Developmental Disabilities. If such information is present, then the following [facility] mandated warning applies: This information has been [...] law may result in a fine or long term sentence or both. A general authorization for the release of medical or other information is NOT sufficient authorization for further disc losure. Family History Family Member Name Family Member Gender Family Member Status Date o f Status Description Data Source(s) Unknown Unknown Problem [facility] ([facility]) Bone father Unknown Female Problem [facility] ([facility] ) Encounters Encounter Providers Location Date Indications Data Source(s ) Outpatient Attender: Moo Presley 06/13/2022 12:00:0 0 AM [facility] Outpatient Attender: Natty Bray MD 03/13/2022 12:00:00 A M [facility] Outpatient Attender: Moo Presley 11/28/2021 12:00:0 0 AM [facility] Outpatient Attender: Moo Presley [id number] 12:00:00 AM [facility] 08/12/2021 12:37:10 PM [facility] Outpatient Attender: Natty Bray MD 05/10/2021 12:00:00 A M [facility] Outpatient Attender: KHRIS Styles/Alie/Nando/Reindl 01/29/2021 08:30:00 AM EDT [facility] ([facility]) Outpatient Attender: Moo Presley [id number] 11/2020 12:00:00 AM EDT - 01/28/2021 01:03:41 PM EDT Type 2 diabetes mellitus with hyperglycemia [facility] Type 2 diabetes mellitus with hyperglyce [facility] Outpatient<td ID="encounterTypeDescripti onID0">EXTENDED VISIT</td><td>Diane Marino BEEF RIBBER</td><td>Family [facility]</td><td>01/02/2021</td><td>10:09AM</td><td>10/03/2020 11:59PM</td><td><content ID="encounterDiagnosisID0-0">Diarrhea</content>, <content ID="encounterDiagnosisID0-1">Functional Murmur</content>, <content ID="encounterDiagnosisID0-2">Diabetes Mellitus Type 2</content>, <content ID="encounterDiagnosisID0-3">Essential Hypertension Benign</content>, <content ID="encounterDiagnosisID0-4">Hyperlipidemia</content></td> Attender: Diane Marino NP [facility], 01/02/2021 10:09:00 AM EDT - 10/03/2020 11:59:00 PM EST Functional MurmurDiarrheaHyperlipidemiaE ssential Hypertension BenignDiabetes Mellitus Type 2 [facility] ([facility]) Functional Murmur Diarrhea Hyperlipidemia Essential Hypertension Benign Diabetes Mellitus Type 2 Outpatient Admitter: KHRIS Robleserrer: KHRIS FAY DO 12/19/2020 12:00:00 AM EDT Other nonspecific abnormal finding of lung field [facility] Other nonspecific abnormal finding of patrick ng field Outpatient Attender: KHRIS FAY DO Daryn/Grampian/Nando/Reindl 12/17/2020 08:30:00 AM EDT [facility] Outpatient Attender: KHRIS Styles/Grampian/Nando/Reindl 11/21/2020 08:30:00 AM EST [facility] ([facility] Outpatient Attender: Natty Bray MD [id number] 10/26/2020 12:0 0:00 AM EST Type 2 diabetes mellitus with hyperglycemia [facility] Type 2 diabetes mellitus with hyperglyce [facility] Outpatient<td ID="encounterTypeDescripti onID1">[Patient Encounter]</td><td>Roseline Montana MD</td><td></td><td>12/13/2020</td><td>10/03/2020 4:17PM</td><td>10/03/2020 11:59PM</td><td></td> Attender: Roseline Montana MD 10/03/2020 04:17:00 PM EST - 10/03/2020 11:59:00 PM EST [facility] ([facility]) <td ID="encounterTypeDescriptionID2">E-V ISIT E/M</td><td>Diane Marino NP</td><td>Family [facility]</td><td>10/03/2020</td><td>10:44AM</td><td>11:50AM</td><td><content ID="encounterDiagnosisID2-0">Diabetes Mellitus Type 2</content>, <content ID="encounterDiagnosisID2-1">Essential Hypertension Benign</content>, <content ID="encounterDiagnosisID2-2">Chronic Obstructive Pulmonary Disease</content>, <content ID="encounterDiagnosisID2-3">Hyperlipidemia</content></td>Outpatient Attender: Diane Marino NP [facility] 10/03/2020 10:44:00 AM EST - 10/03/2020 11:50:00 AM EST Chronic Obstructive Pulmonary DiseaseHyperlipidemiaEssential Hypertension BenignDiabetes Mellitus Type 2 [facility] ([facility]) Chronic Obstructive Pulmonary Disease Hyperlipidemia Essential Hypertension Benign Diabetes Mellitus Type 2 Outpatient Attender: AMINTA KILPATRICKReferrer: Natty Bray MD [id number] 09/12/2020 12:00:00 AM EST - 09/12/2020 03:20:00 PM EST [facility] Education Office Visit Attender: Fani Atkins MD Main office - [facility] 09/06/2020 10:45:00 AM EST [facility] ([facility] ) Outpatient<td ID="encounterTypeDescripti onID3">EXTENDED VISIT</td><td>Diane Marino NP</td><td>[facility]</td><td>08/30/2020</td><td>9:53AM</td><td>10:38AM</td><td><content ID="encounterDiagnosisID3-0">Diabetes Mellitus Type 2 with Manifestations</content></td> Attender: Diane Marino NP [facility] 08/30/2020 09:53:00 AM EST - 08/30/2020 10:38:00 AM ES T Diabetes Mellitus Type 2 with ManifestationsDiabetes Mellitus Type 2 with Manifestations [facility] ([facility]) Diabetes Mellitus Type 2 with Manifestat ions Diabetes Mellitus Type 2 with Manifestat ions Outpatient Attender: BHUPENDRA STATON V 07/30/2020 12:00:0 0 AM EST [facility] Outpatient Attender: Moo Thomasonkike [id number] 07/02/2020 1 2:00:00 AM EDT Type 2 diabetes mellitus with hyperglycemia [facility] Type 2 diabetes mellitus with hyperglyce [facility] Immunizations Vaccine Date Status Description Data Source(s) COVID-19 VACCINE [employer] 12/26/2020 12:00:00 AM EDT completed [facility] Vaccine Series Complete: YESThis Data wa s Submitted to [facility] Via [employer]. COVID-19 VACCINE [employer] 12/05/2020 12:00:00 AM EST completed [facility] Vaccine Series Complete: NOThis Data was Submitted to [facility] Via [employer]. Medications Medication Brand Name Start Date Product Form Dose Route Admi nistrative Instructions Pharmacy Instructions Status Indications Reaction Description Data Source(s) Trulicity 3 MG/0.5ML Subcutaneous Solution Pen-injecto r (Dulaglutide) 5647-6880-26 01/28/2021 12:00:00 AM EDT 3 mg Subcutaneous active Inject 3 mg into the skin once a week [facility] 7 ACTUAT umeclidinium 0.0625 MG/ACTUAT D ry Powder Inhaler [Incruse] Incruse Ellipta 62.5 MCG/INH Inhalation Aerosol Powder Breath Activated Incruse Ellipta 62.5 MCG/INH Inhalation Aerosol Powder Breath Activated 01/02/2021 12:00:00 AM EDT active 7 ACTUAT umeclidinium 0.0625 MG/ACTUAT Dry Powder Inhaler [Incruse] [facility] ([facility]) Simvastatin 40 MG Oral Tablet [Zocor] Zocor 40 MG Oral Tablet Zocor 40 MG Oral Tablet 01/02/2021 12:00:00 AM EDT 1 active simvastatin 40 MG Oral Tablet [Zocor] [facility] ([facility]) Atenolol 50 MG Oral Tablet Atenolol 50 MG Oral Tablet 2020 12:00:00 AM EDT active atenolol 50 MG Or al Tablet [facility] ([facility]) 3 ML Insulin, Aspart, Human 100 UNT/ML P en Injector [NovoLog] NovoLOG FlexPen 100 UNIT/ML Subcutaneous Solution Pen-injector NovoLOG FlexPen 100 UNIT/ML Subcutaneous Solution Pen-injector 01/02/2021 12:00:00 AM EDT active 3 ML insulin aspart, human 100 UNT/ML Pe n Injector [NovoLog] [facility] ([facility]) 12 HR Bupropion Hydrochloride 150 MG Ext ended Release Oral Tablet buPROPion HCl ER (SR) 150 MG Oral Tablet Extended Release 12 Hour buPROPion HCl ER (SR) 150 MG Oral Tablet Extended Release 12 Hour 01/02/2021 12:00:00 AM EDT active 12 HR bupropion hydrochloride 15 0 MG Extended Release Oral Tablet [facility]) Aspirin 81 MG Chewable Tablet Aspirin Ad ult Low Strength 81 MG Oral Tablet Chewable Aspirin Adult Low Strength 81 MG Oral Tablet Chewable 01/02/2021 12:00:00 AM EDT 1 active aspirin 81 MG Chewable Tablet [facility]) Metformin hydrochloride 500 MG Oral Tablet metFORMIN H Cl 500 MG Oral Tablet metFORMIN HCl 500 MG Oral Tablet 01/02/2021 12:00:00 AM EDT 2 active metformin hydrochloride 500 MG Oral Tablet [facility]) clopidogrel 75 MG Oral Tablet Clopidogrel Bisulfate 75 MG Oral Tablet Clopidogrel Bisulfate 75 MG Oral Tablet 01/02/2021 12:00:00 AM EDT active [facility]rel [facility] ropinirole 0.5 MG Oral Tablet rOPINIRole HCl 0.5 MG Or al Tablet rOPINIRole HCl 0.5 MG Oral Tablet 01/02/2021 12:00:00 AM EDT active ropinirole 0.5 MG Oral Tablet [facility]) Citalopram 20 MG Oral Tablet Citalopram Hydrobromide 2 0 MG Oral Tablet Citalopram Hydrobromide 20 MG Oral Tablet 01/02/2021 12:00:00 AM EDT active citalopram 20 MG Oral Tablet GRE [facility]) Ramipril 10 MG Oral Capsule Ramipril 10 MG Oral Capsule 03/2021 12:00:00 AM EDT active ramipril 10 MG Or al Capsule [facility]) ezetimibe 10 MG Oral Tablet [Zetia] Zetia 10 MG Oral T ablet Zetia 10 MG Oral Tablet 01/02/2021 12:00:00 AM EDT 1 active ezetimibe 10 MG Oral Tablet [Zetia] [facility] ([facility]) gabapentin 600 MG Oral Tablet Gabapentin 600 MG Oral T ablet Gabapentin 600 MG Oral Tablet 01/02/2021 12:00:00 AM EDT 1 active gabapentin 600 MG Oral Tablet [facility] ([facility]) Vitamin D (Ergocalciferol) 1.25 MG (15367 UT) Oral Cap titi Vitamin D (Ergocalciferol) 1.25 MG (33562 UT) Oral Capsule 01/02/2021 12:00:00 AM EDT active Vitamin D (Ergocalci ferol) [facility]) Cyclobenzaprine hydrochloride 10 MG Oral Tablet Cyclobenzaprine HCl 10 MG Oral Tablet Cyclobenzaprine HCl 10 MG Oral Tablet 01/02/2021 12:00:00 AM EDT active cyclobenzaprine hydrochlorid e 10 MG Oral Tablet [facility]) Amylases 65013 UNT / Endopeptidases 1900 0 UNT / Lipase 6000 UNT Delayed Release Oral Capsule [Creon] Creon 6000 UNIT Oral Capsule Delayed Release Particles Creon 6000 UNIT Oral Capsule Delayed Release Particles 12/22/2020 12:00:00 AM EDT active amylase 79217 UNT / lipase 6000 UNT / protease 33247 UNT Delayed Release Oral Capsule [Creon] [facility]) Memantine hydrochloride 10 MG Oral Tablet [Namenda] Na menda 10 MG Oral Tablet Namenda 10 MG Oral Tablet 12/04/2020 12:00:00 AM EST active memantine hydrochloride 10 MG Oral Tablet [Namenda] [facility]) Donepezil hydrochloride 10 MG Oral Tablet Donepezil HC l 10 MG Oral Tablet Donepezil HCl 10 MG Oral Tablet 12/04/2020 12:00:00 AM EST active donepezil hydrochloride 10 MG Oral Tablet [facility]) Vitamin D (Ergocalciferol) 1.25 MG (31407 UT) Oral Cap titi Vitamin D (Ergocalciferol) 1.25 MG (97965 UT) Oral Capsule 10/29/2020 12:00:00 AM EST aborted Vitamin D (Ergocalci ferol) [facility] ([facility]) Cyclobenzaprine hydrochloride 10 MG Oral Tablet Cyclobenzaprine HCl 10 MG Oral Tablet Cyclobenzaprine HCl 10 MG Oral Tablet 10/26/2020 12:00:00 AM EST aborted cyclobenzaprine hydrochlorid e 10 MG Oral Tablet [facility] ([facility]) ropinirole 0.5 MG Oral Tablet rOPINIRole HCl 0.5 MG Or al Tablet rOPINIRole HCl 0.5 MG Oral Tablet 10/26/2020 12:00:00 AM EST aborted ropinirole 0.5 MG Oral Tablet [facility]) clopidogrel 75 MG Oral Tablet Clopidogrel Bisulfate 75 MG Oral Tablet Clopidogrel Bisulfate 75 MG Oral Tablet 10/26/2020 12:00:00 AM EST aborted clopidogrel 75 MG Oral Tablet GR [facility] ([facility]) Ramipril 10 MG Oral Capsule Ramipril 10 MG Oral Capsule 09/29 12:00:00 AM EST aborted ramipril 10 MG O ral Capsule [facility]) Atenolol 50 MG Oral Tablet Atenolol 50 MG Oral Tablet 2020 12:00:00 AM EST aborted atenolol 50 MG O ral Tablet [facility]) Omeprazole 20 MG Delayed Release Oral Ca psule Omeprazole 20 MG Oral Capsule Delayed Release Omeprazole 20 MG Oral Capsule Delayed Release 10/26/19 12:00:00 AM EST active omeprazole 20 MG Delayed Release Oral Capsule [facility]) Citalopram 20 MG Oral Tablet Citalopram Hydrobromide 2 0 MG Oral Tablet Citalopram Hydrobromide 20 MG Oral Tablet 10/26/2020 12:00:00 AM EST aborted citalopram 20 MG Oral Tablet [facility] ([facility]) 12 HR Bupropion Hydrochloride 150 MG Ext ended Release Oral Tablet buPROPion HCl ER (SR) 150 MG Oral Tablet Extended Release 12 Hour buPROPion HCl ER (SR) 150 MG Oral Tablet Extended Release 12 Hour 10/26/2020 12:00:00 AM EST aborted 12 HR bupropion hydrochloride 15 0 MG Extended Release Oral Tablet [facility]) Cyclobenzaprine hydrochloride 10 MG Oral Tablet Cyclobenzaprine HCl 10 MG Oral Tablet Cyclobenzaprine HCl 10 MG Oral Tablet 10/03/2020 12:00:00 AM EST 1 aborted cyclobenzaprine hydrochlorid e 10 MG Oral Tablet [facility]) Amylases 54286 UNT / Endopeptidases 1900 0 UNT / Lipase 6000 UNT Delayed Release Oral Capsule [Creon] Creon 6000 UNIT Oral Capsule Delayed Release Particles Creon 6000 UNIT Oral Capsule Delayed Release Particles 10/03/2020 12:00:00 AM EST aborted amylase 88460 UNT / lipase 6000 UNT / protease 04259 UNT Delayed Release Oral Capsule [Creon] [facility]) ropinirole 0.5 MG Oral Tablet rOPINIRole HCl 0.5 MG Or al Tablet rOPINIRole HCl 0.5 MG Oral Tablet 10/03/2020 12:00:00 AM EST 1 aborted ropinirole 0.5 MG Oral Tablet [facility]) Ramipril 10 MG Oral Capsule Ramipril 10 MG Oral Capsule 02/2021 12:00:00 AM EST 1 aborted ramipril 10 MG O ral Capsule [facility]) Ergocalciferol 31893 UNT Oral Capsule [D risdol] Drisdol 1.25 MG (16900 UT) Oral Capsule Drisdol 1.25 MG (62492 UT) Oral Capsule 10/03/2020 12:00:00 AM EST aborted ergocalciferol 1.25 MG Oral Capsule [Drisdol] [facility] ([facility]) ezetimibe 10 MG Oral Tablet [Zetia] Zetia 10 MG Oral T ablet Zetia 10 MG Oral Tablet 10/03/2020 12:00:00 AM EST 1 aborted ezetimibe 10 MG Oral Tablet [Zetia] [facility] ([facility]) 12 HR Bupropion Hydrochloride 150 MG Ext ended Release Oral Tablet buPROPion HCl ER (SR) 150 MG Oral Tablet Extended Release 12 Hour buPROPion HCl ER (SR) 150 MG Oral Tablet Extended Release 12 Hour 10/03/2020 12:00:00 AM EST aborted 12 HR bupropion hydrochloride 15 0 MG Extended Release Oral Tablet [facility]) [place] 5/16" 31G X 8 MM Miscellaneous [place] 5/16" 31G X 8 MM Miscellaneous 10/03/2020 12:00:00 AM EST active Pen [place] 5/16" [facility] ([facility]) Citalopram 20 MG Oral Tablet Citalopram Hydrobromide 2 0 MG Oral Tablet Citalopram Hydrobromide 20 MG Oral Tablet 10/03/2020 12:00:00 AM EST 1 aborted citalopram 20 MG Oral Tablet GRE [facility]) clopidogrel 75 MG Oral Tablet [Plavix] Plavix 75 MG Or al Tablet Plavix 75 MG Oral Tablet 10/03/2020 12:00:00 AM EST 1 aborte d clopidogrel 75 MG Oral Tablet [Plavix] [facility]) Atenolol 50 MG Oral Tablet Atenolol 50 MG Oral Tablet 2020 12:00:00 AM EST 1 aborted atenolol 50 MG O ral Tablet [facility]) Metformin hydrochloride 500 MG Oral Tablet metFORMIN H Cl 500 MG Oral Tablet metFORMIN HCl 500 MG Oral Tablet 10/03/2020 12:00:00 AM EST 2 aborted metformin hydrochloride 500 MG Oral Tablet [facility] ([facility]) Aspirin 81 MG Chewable Tablet Aspirin Ad ult Low Strength 81 MG Oral Tablet Chewable Aspirin Adult Low Strength 81 MG Oral Tablet Chewable 10/03/2020 12:00:00 AM EST 1 aborted aspirin 81 MG Chewable Tablet [facility]) Omeprazole 20 MG Delayed Release Oral Ca psule Omeprazole 20 MG Oral Capsule Delayed Release Omeprazole 20 MG Oral Capsule Delayed Release 10/03/19 12:00:00 AM EST 1 aborted omeprazole 20 MG Delayed Release Oral Capsule [facility]) 3 ML Insulin, Aspart, Human 100 UNT/ML P en Injector [NovoLog] NovoLOG FlexPen 100 UNIT/ML Subcutaneous Solution Pen-injector NovoLOG FlexPen 100 UNIT/ML Subcutaneous Solution Pen-injector 10/03/2020 12:00:00 AM EST aborted 3 ML insulin aspart, human 100 UNT/ML Pe n Injector [NovoLog] [facility] ([facility]) gabapentin 600 MG Oral Tablet Gabapentin 600 MG Oral T ablet Gabapentin 600 MG Oral Tablet 10/03/2020 12:00:00 AM EST 1 aborte d gabapentin 600 MG Oral Tablet [facility]) Simvastatin 40 MG Oral Tablet [Zocor] Zocor 40 MG Oral Tablet Zocor 40 MG Oral Tablet 10/03/2020 12:00:00 AM EST 1 aborted simvastatin 40 MG Oral Tablet [Zocor] [facility]) 7 ACTUAT umeclidinium 0.0625 MG/ACTUAT D ry Powder Inhaler [Incruse] Incruse Ellipta 62.5 MCG/INH Inhalation Aerosol Powder Breath Activated Incruse Ellipta 62.5 MCG/INH Inhalation Aerosol Powder Breath Activated 10/03/2020 12:00:00 AM EST aborted 7 ACTUAT umeclidinium 0.0625 MG/ACTUAT Dry Powder Inhaler [Incruse] [facility] ([facility]) sitagliptin 100 MG Oral Tablet [Januvia] Januvia 100 M G Oral Tablet Januvia 100 MG Oral Tablet 09/30/2020 12:00:00 AM EST abo rted sitagliptin 100 MG Oral Tablet [Januvia] [facility] ([facility]) ezetimibe 10 MG Oral Tablet [Zetia] Zetia 10 MG Oral T ablet Zetia 10 MG Oral Tablet 07/16/2020 12:00:00 AM EDT 1 aborted ezetimibe 10 MG Oral Tablet [Zetia] [facility] ([facility]) ropinirole 0.5 MG Oral Tablet rOPINIRole HCl 0.5 MG Or al Tablet rOPINIRole HCl 0.5 MG Oral Tablet 07/16/2020 12:00:00 AM EDT 1 aborted ropinirole 0.5 MG Oral Tablet [facility] ([facility]) Ramipril 10 MG Oral Capsule Ramipril 10 MG Oral Capsule 06/28 12:00:00 AM EDT 1 aborted ramipril 10 MG O ral Capsule [facility]) Atenolol 50 MG Oral Tablet Atenolol 50 MG Oral Tablet 2019 12:00:00 AM EDT 1 aborted atenolol 50 MG O ral Tablet [facility]) clopidogrel 75 MG Oral Tablet [Plavix] Plavix 75 MG Or al Tablet Plavix 75 MG Oral Tablet 07/16/2020 12:00:00 AM EDT 1 aborte d clopidogrel 75 MG Oral Tablet [Plavix] [facility]) sitagliptin 100 MG Oral Tablet [Januvia] Januvia 100 M G Oral Tablet Januvia 100 MG Oral Tablet 07/16/2020 12:00:00 AM EDT 1 abo rted sitagliptin 100 MG Oral Tablet [Januvia] [facility]) Omeprazole 20 MG Delayed Release Oral Ca psule Omeprazole 20 MG Oral Capsule Delayed Release Omeprazole 20 MG Oral Capsule Delayed Release 07/16/20 12:00:00 AM EDT 1 aborted omeprazole 20 MG Delayed Release Oral Capsule [facility]) Aspirin 81 MG Chewable Tablet Aspirin Ad ult Low Strength 81 MG Oral Tablet Chewable Aspirin Adult Low Strength 81 MG Oral Tablet Chewable 07/16/2020 12:00:00 AM EDT 1 aborted aspirin 81 MG Chewable Tablet [facility]) 12 HR Bupropion Hydrochloride 150 MG Ext ended Release Oral Tablet buPROPion HCl ER (SR) 150 MG Oral Tablet Extended Release 12 Hour buPROPion HCl ER (SR) 150 MG Oral Tablet Extended Release 12 Hour 07/16/2020 12:00:00 AM EDT aborted 12 HR bupropion hydrochloride 15 0 MG Extended Release Oral Tablet [facility]) Metformin hydrochloride 500 MG Oral Tablet metFORMIN H Cl 500 MG Oral Tablet metFORMIN HCl 500 MG Oral Tablet 07/16/2020 12:00:00 AM EDT 2 aborted metformin hydrochloride 500 MG Oral Tablet [facility] ([facility]) Citalopram 20 MG Oral Tablet Citalopram Hydrobromide 2 0 MG Oral Tablet Citalopram Hydrobromide 20 MG Oral Tablet 07/16/2020 12:00:00 AM EDT 1 aborted citalopram 20 MG Oral Tablet [facility]) Ergocalciferol 84258 UNT Oral Capsule [D risdol] Drisdol 1.25 MG (40062 UT) Oral Capsule Drisdol 1.25 MG (18805 UT) Oral Capsule 07/16/2020 12:00:00 AM EDT aborted ergocalciferol 1.25 MG Oral Capsule [Drisdol] [facility]) 7 ACTUAT umeclidinium 0.0625 MG/ACTUAT D ry Powder Inhaler [Incruse] Incruse Ellipta 62.5 MCG/INH Inhalation Aerosol Powder Breath Activated Incruse Ellipta 62.5 MCG/INH Inhalation Aerosol Powder Breath Activated 07/16/2020 12:00:00 AM EDT aborted 7 ACTUAT umeclidinium 0.0625 MG/ACTUAT Dry Powder Inhaler [Incruse] [facility] ([facility]) Cyclobenzaprine hydrochloride 10 MG Oral Tablet Cyclobenzaprine HCl 10 MG Oral Tablet Cyclobenzaprine HCl 10 MG Oral Tablet 07/16/2020 12:00:00 AM EDT 1 aborted cyclobenzaprine hydrochlorid e 10 MG Oral Tablet [facility]) 3 ML Insulin, Aspart, Human 100 UNT/ML P en Injector [NovoLog] NovoLOG FlexPen 100 UNIT/ML Subcutaneous Solution Pen-injector NovoLOG FlexPen 100 UNIT/ML Subcutaneous Solution Pen-injector 07/16/2020 12:00:00 AM EDT aborted 3 ML insulin aspart, human 100 UNT/ML Pe n Injector [NovoLog] [facility] ([facility]) gabapentin 600 MG Oral Tablet Gabapentin 600 MG Oral T ablet Gabapentin 600 MG Oral Tablet 07/16/2020 12:00:00 AM EDT 1 aborte d gabapentin 600 MG Oral Tablet [facility] ([facility]) Simvastatin 40 MG Oral Tablet [Zocor] Zocor 40 MG Oral Tablet Zocor 40 MG Oral Tablet 07/16/2020 12:00:00 AM EDT 1 aborted simvastatin 40 MG Oral Tablet [Zocor] [facility] ([facility]) Amylases 19133 UNT / Endopeptidases 1900 0 UNT / Lipase 6000 UNT Delayed Release Oral Capsule [Creon] Creon 6000 UNIT Oral Capsule Delayed Release Particles Creon 6000 UNIT Oral Capsule Delayed Release Particles 06/05/2020 12:00:00 AM EDT aborted amylase 53977 UNT / lipase 6000 UNT / protease 65375 UNT Delayed Release Oral Capsule [Creon] [place] [facility]) Atenolol 50 MG Oral Tablet Atenolol 50 MG Oral Tablet 2019 12:00:00 AM EDT 1 aborted atenolol 50 MG O ral Tablet [facility]) clopidogrel 75 MG Oral Tablet [Plavix] Plavix 75 MG Or al Tablet Plavix 75 MG Oral Tablet 05/15/2020 12:00:00 AM EDT 1 aborte d clopidogrel 75 MG Oral Tablet [Plavix] [facility] ([facility]) Omeprazole 20 MG Delayed Release Oral Ca psule Omeprazole 20 MG Oral Capsule Delayed Release Omeprazole 20 MG Oral Capsule Delayed Release 05/15/20 12:00:00 AM EDT 1 aborted omeprazole 20 MG Delayed Release Oral Capsule [facility]) Aspirin 81 MG Chewable Tablet Aspirin Ad ult Low Strength 81 MG Oral Tablet Chewable Aspirin Adult Low Strength 81 MG Oral Tablet Chewable 05/15/2020 12:00:00 AM EDT 1 aborted aspirin 81 MG Chewable Tablet [facility]) 3 ML Insulin, Aspart, Human 100 UNT/ML P en Injector [NovoLog] NovoLOG FlexPen 100 UNIT/ML Subcutaneous Solution Pen-injector NovoLOG FlexPen 100 UNIT/ML Subcutaneous Solution Pen-injector 05/15/2020 12:00:00 AM EDT aborted 3 ML insulin aspart, human 100 UNT/ML Pe n Injector [NovoLog] [facility]) 7 ACTUAT umeclidinium 0.0625 MG/ACTUAT D ry Powder Inhaler [Incruse] Incruse Ellipta 62.5 MCG/INH Inhalation Aerosol Powder Breath Activated Incruse Ellipta 62.5 MCG/INH Inhalation Aerosol Powder Breath Activated 05/15/2020 12:00:00 AM EDT aborted 7 ACTUAT umeclidinium 0.0625 MG/ACTUAT Dry Powder Inhaler [Incruse] [place] ([facility]) sitagliptin 100 MG Oral Tablet [Januvia] Januvia 100 M G Oral Tablet Januvia 100 MG Oral Tablet 05/15/2020 12:00:00 AM EDT 1 abo rted sitagliptin 100 MG Oral Tablet [Januvia] [facility]) [place] 5/16" 31G X 8 MM Miscellaneous [place] 5/16" 31G X 8 MM Miscellaneous 05/15/2020 12:00:00 AM EDT abor james [place] 516" [place] ([facility]) gabapentin 600 MG Oral Tablet Gabapentin 600 MG Oral T ablet Gabapentin 600 MG Oral Tablet 05/15/2020 12:00:00 AM EDT 1 aborte d gabapentin 600 MG Oral Tablet [place] ([facility]) Cyclobenzaprine hydrochloride 10 MG Oral Tablet Cyclobenzaprine HCl 10 MG Oral Tablet Cyclobenzaprine HCl 10 MG Oral Tablet 05/15/2020 12:00:00 AM EDT 1 aborted cyclobenzaprine hydrochlorid e 10 MG Oral Tablet [facility]) Ramipril 10 MG Oral Capsule Ramipril 10 MG Oral Capsule 04/28 12:00:00 AM EDT 1 aborted ramipril 10 MG O ral Capsule [place] ([facility]) Ergocalciferol 34560 UNT Oral Capsule [D risdol] Drisdol 1.25 MG (50800 UT) Oral Capsule Drisdol 1.25 MG (21462 UT) Oral Capsule 05/15/2020 12:00:00 AM EDT aborted ergocalciferol 1.25 MG Oral Capsule [Drisdol] [facility]) ropinirole 0.5 MG Oral Tablet rOPINIRole HCl 0.5 MG Or al Tablet rOPINIRole HCl 0.5 MG Oral Tablet 05/15/2020 12:00:00 AM EDT 1 aborted ropinirole 0.5 MG Oral Tablet [facility]) Metformin hydrochloride 500 MG Oral Tablet metFORMIN H Cl 500 MG Oral Tablet metFORMIN HCl 500 MG Oral Tablet 05/15/2020 12:00:00 AM EDT 2 aborted metformin hydrochloride 500 MG Oral Tablet [place] ([facility]) Simvastatin 40 MG Oral Tablet [Zocor] Zocor 40 MG Oral Tablet Zocor 40 MG Oral Tablet 05/15/2020 12:00:00 AM EDT 1 aborted simvastatin 40 MG Oral Tablet [Zocor] [place] ([facility]) 12 HR Bupropion Hydrochloride 150 MG Ext ended Release Oral Tablet buPROPion HCl ER (SR) 150 MG Oral Tablet Extended Release 12 Hour buPROPion HCl ER (SR) 150 MG Oral Tablet Extended Release 12 Hour 05/15/2020 12:00:00 AM EDT aborted 12 HR bupropion hydrochloride 15 0 MG Extended Release Oral Tablet [place] ([facility]) Citalopram 20 MG Oral Tablet Citalopram Hydrobromide 2 0 MG Oral Tablet Citalopram Hydrobromide 20 MG Oral Tablet 05/15/2020 12:00:00 AM EDT 1 aborted citalopram 20 MG Oral Tablet [facility]) ezetimibe 10 MG Oral Tablet [Zetia] Zetia 10 MG Oral T ablet Zetia 10 MG Oral Tablet 05/15/2020 12:00:00 AM EDT 1 aborted ezetimibe 10 MG Oral Tablet [Zetia] [place] ([facility]) 0.5 ML dulaglutide 3 MG/ML Auto-Injector Dulaglutide 1.5 MG/0.5ML Subcutaneous Solution Pen-injector (Trulicity) Dulaglutide 1.5 MG/0.5ML Subcutaneous So lution Pen-injector (Trulicity) 04/11/2020 12:00:00 AM EDT aborted Type 2 diabetes mellitus with hyperglycemia, with long-term current use of insulin Inject 1.5mg subq once per week.Dx: E11.65 [facility] Type 2 diabetes mellitus with hyperglyce farheen, with long-term current use of insulin Insurance Providers Payer name Policy type / Coverage type Policy ID Covered democrat ID Covered democrat's relationship to nobles Policy Nobles Plan Information [place] () Workers Compensation [id number] Self Radha Jordanian () Workers Compensation [id number] Self [id number] MEDICARE A [id number] Self [id number] Medicare Part B of [place] Medicare Primary 0 [id number] Self 0 [id number] A MEDICARE [id number] SP [id number] A MEDICARE [id number] SP [id number] A Medicare [place] of [place] Medicare Primary 0 [id number] Self 0 Medicare [place] Medicare Primary 0 [id number] Self 0 MEDICARE [id number] SP [id number] [id number] Medicare [place] B of [place] Medicare Primary 0 [id number] Self 0 Medicare [place] Medicare Primary 0 [id number] Self 0 Medicare Part B of [facility] Medicare Primary 0 [id number] Self 0 Medicare [place] of [place] Medicare Primary 0 [id number] Self 0 Medicare Part [place] of [place] Medicare Primary 0 [id number] Self 0 [place] Medig[place] Part [place] [id number] Self [id number] [place] Part B [id number] Self Medicare [facility] Medicare Primary [id number] Self Medicare [facility] Medicare Primary [id number] Self MEDICAID [id number] SP [id number] MEDICAID [id number] SP [id number] Medicare [facility] Medicare Primary [id number] Self [id number] Medicare [facility] Medicare Primary [id number] Self [id number] Medicare [facility] Medicare Primary [id number] Self [id number] MEDICAID M [id number] Self [id number] MEDICAID [id number] SP [id number] MEDICARE C [id number] S [id number] A Medicaid of [place] Supplemental Policy 0 [id number] Self 0 [place] Policy 0 [id number] Self 0 [place] Policy 0 [id number] Self 0 [place] 0 [id number] Self 0 [place] Policy 0 [id number] Self 0 Medicaid [place] Med[place] Part B [id number] Self [id number] [place] Medicare Primary [id number] Self [id number] [facility] [id number] KAR CLAIM ADMIN WORK COMP [id number] SP [id number] [facility] SELF INSURED [facility] MEDICAID Medicare Part B of [facility] Other 0 [id number] Self 0 Medicare Part B of [facility] Other 0 [id number] Self 0 Medicare Part B of [facility] Other 0 [id number] Self 0 Medicare Part B of [facility] Other 0 [id number] Self 0 Medicare Part B of [facility] Other 0 [id number] Self 0 MEDICARE C [id number] S [id number] [id number] Medicare Part B of [facility] Other 0 [id number] Self 0 Medicare Part B of [facility] Other 0 [id number] Self 0 Medicare Part B of [facility] Other 0 [id number] Self 0 MEDICAID [id number] SP [id number] MEDICARE PART A -O/P [id number] 18 [id number] Medicare Part B of [facility] Other 0 [id number] Self 0 Medicare Part B of [facility] Other 0 [id number] Self 0 Medicare Part B of [facility] Other 0 [id number] Self 0 Medicare Part B of [facility] Other 0 [id number] Self 0 [place] Supplemental Policy 0 [id number] Self 0 Medicare Part B of [facility] Other 0 [id number] Self 0 [place] Supplemental Policy 0 [id number] Self 0 [place] Supplemental Policy 0 [id number] Self 0 [place] Supplemental Policy 0 [id number] Self 0 MEDICAID [place] [id number] S [id number] Problems, Conditions, and Diagnoses Code Display Name Description Problem Type Effective Dates Data Source(s) R91.8 Other nonspecific abnormal finding of patrick ng field Other nonspecific abnormal finding of lung field Diagnosis 12/19/2020 02:56:00 PM EDT [facility] E78.5 Hyperlipidemia, unspecified Hyperlipidemia, unspecifie d Diagnosis 10/26/2020 10:57:23 AM [facility] E55.9 Vitamin D deficiency, unspecified Vitamin D defi ciency, unspecified Diagnosis 10/26/2020 10:57:23 AM [facility] E03.9 Hypothyroidism, unspecified Hypothyroidism, unspecifie d Diagnosis 10/26/2020 10:57:23 AM [facility] Education Education Diagnosis 09/12/2020 10:23:43 AM [facility] Surgeries/Procedures Procedure Description Date Indications Data Source([facility]) [facility]OM-MODE COMPL SPEC&COLR DOP 01/24 12:00:00 AM EDT LENKA (Alberto Acevedo MD) ELECTROCARDIOGRAM, COMPLETE (EKG) ELECTROCARDIOGRAM, COMPLET E (EKG) 01/02/2021 12:00:00 AM EDT [place] ([facility]) Spirometry 11/21/2020 12:00:00 AM EST M [facility] ([facility], ) Bronchospasm Evaluation 11/21/2020 12:00:00 AM EST [facility] ([facility], ) Plethysmography Determination Lung Volumes & Per Airway Resi st 11/21/2020 12:00:00 AM EST [facility] ([facility] ) DIFFUSING CAPACITY 11/21/2020 12:00:00 AM EST [facility] ([facility], ) ELECTROENCEPHALOGRAM W/REC AWAKE&ASLEEP 09/14/2020 12: 00:00 AM EST [facility] ([facility], ) ELECTROENCEPHALOGRAM W/REC AWAKE&ASLEEP 09/14/2020 12: 00:00 AM EST [facility] ([facility], ) TSTG ANS FUNCJ CARDIOVAGAL INNERVAJ PARASYMP 0 12:00:00 AM EST [facility] ([facility], ) TSTG ANS FUNCJ CARDIOVAGAL INNERVAJ PARASYMP 0 12:00:00 AM EST [facility] ([facility], ) TESTING AUTONOMIC NERVOUS SYSTEM FUNCTION 08/29/2020 1 2:00:00 AM EST [facility] ([facility], ) TESTING AUTONOMIC NERVOUS SYSTEM FUNCTION 08/29/2020 1 2:00:00 AM EST [facility] ([facility], ) Results ID Date Data Source [id number] 08/12/2021 12:17:[address] [facility] Name Value Range Interpretation Code Description Data Allyson rce(s) Supporting Document(s) Progress Note [facility] HGCDKi3mNfTYBrEt74/HPUgqUZCfy9SsGGulOUl2GTmrZYIpD9StHNH4fQ1dSHM5IMjDIoGwFvEmKCQ6 lbm [file] OsHJFfDdQrBM0hRBBJAw5+VMnafWDkrKalFEFURiF2UTGfATvvGMTRKf0E ID Date Data Source [id number] 08/12/2021 12:17:25 PM [facility] Name Value Range Interpretation Code Description Data Allyson rce(s) Supporting Document(s) Progress Note [facility] INUQYk0yTwDBChSh84/CZByaZWQhe8FvJOagJKa4HPfzLIKiB6XxZXH0aH5yXAN3JGyHAqWyGnUcZDN6 lbm [file] [id number]== ID Date Data Source [id number] 08/01/2021 08:15:00 AM EDT [facility] ([facility]) Name Value Range Interpretation Code Description Data Allyson rce(s) Supporting Document(s) PDFReport Laboratory test result [facility] ([facility]) FVC-Pred 3.74 L [facility] ([facility]) FVC-%Pred-Pre 84 L [facility] ([facility]) FVC-LLN 2.96 L [facility] ([facility]) FVC-Pre 3.18 L [facility] ([facility]) Fev1-%Pred-Pre 67 L [facility] ([facility]) Fev1-Pre 1.90 L [facility] ([facility]) Fev1-Pred 2.81 L [facility] ([facility]) Fev6-Pred 3.54 L [facility] ([facility]) Fev1-LLN 2.15 L [facility] ([facility]) Fev6-Pre 3.18 L [facility] ([facility]) Dcf9cpl-Bjqg 75 % [facility] ([facility]) Fev6-LLN 2.78 L [facility] ([facility]) Fev6-%Pred-Pre 89 L [facility] ([facility]) Hrx9vub-%Pred-Pre 79 % [facility] ([facility]) Bnj1xxs-GBG 66 % [facility] ([facility]) Xkn6nuo-Usw 60 % [facility] ([facility]) Rww0ezo-Jgku 95 % [facility] ([facility]) Zkf0vwk-Qop 100 % [facility] ([facility]) FEFMax-Pred 7.78 L/E/sec [facility] ([facility]) Lnw8pwt-%Pred-Pre 105 % [facility] ([facility]) FEFMax-Pre 3.39 L/E/sec [facility] ([facility]) FEFMax-%Pred-Pre 43 L/E/sec [facility] ([facility]) FEFMax-LLN 5.83 L/E/sec [facility] ([facility]) Fnt7374-Kir 1.18 L/E/sec [facility] ([facility]) Nku8942-%Pred-Pre 50 L/E/sec [facility] ([facility]) Yjk3510-Tbgw 2.34 L/E/sec [facility] ([facility]) Emv5wzg7-Fdbq 79 % [facility] ([facility]) ExpTime-Pre 6.91 sec [facility] ([facility]) Tlk7354-OSC 1.00 L/E/sec [facility] ([facility]) Six1bec6-RSN 70 % [facility] ([facility]) Mur0ons1-Gdi 60 % [facility] ([facility]) Jik0tac6-%Pred-Pre 75 % [facility] ([facility]) ID Date Data Source [id number] 07/25/2021 09:36:00 AM EDT [facility] ([facility]) Name Value Range Interpretation Code Description Data Allyson rce(s) Supporting Document(s) Triiodothyronine (T3) Free [Mass/volume] in Serum or Plasma 3.0 pg/mL 2.2-4.0 Normal (applies to non-numeric results) [facility] ([facility]) Calcidiol [Mass/volume] in Serum or Plasma 65.2 ng/mL 30.0- 100.0 Normal (applies to non-numeric results) [facility] ID Date Data Source [id number] 07/25/2021 09:36:00 AM EDT [facility] ([facility]) Name Value Range Interpretation Code Description Data Allyson rce(s) Supporting Document(s) Thyroid Stimulating Hormone 1.730 uIU/ML 0.358-3.740 Norm al (applies to non- numeric results) [facility] ([facility]) Free T4 1.06 ng/dL 0.76-1.46 Normal (applies to non-numeric resul ts) [facility] ([facility]) ID Date Data Source [id number] 07/25/2021 09:36:00 AM EDT [facility] ([facility]) Name Value Range Interpretation Code Description Data Allyson rce(s) Supporting Document(s) Urate [Mass/volume] in Serum or Plasma 4.5 mg/dL 3.5-7.2 Normal (applies to non- numeric results) [facility] ([facility]) Magnesium [Mass/volume] in Serum or Plasma 1.9 mg/dL 1.8-2 .4 Normal (applies to non-numeric results) [facility] ([facility]) Prostate specific Ag [Mass/volume] in Serum or Plasma 0.18 ng/mL Normal (applies to non-numeric results) [facility]) The PSA assay is performed on the [employer] analyzer by [employer] sandwich chemiluminescent immunoassay and should not be compared interchangeably with other methods. It should not be used alone as a screening test or diagnosis for the presence or absence of malignant disease. Predictions of disease recurrence should not be based solely on values obtained from serial patient serum values. ID Date Data Source [id number] 07/25/2021 09:36:00 AM EDT [facility]) Name Value Range Interpretation Code Description Data Allyson rce(s) Supporting Document(s) Glucose, Fasting 453 mg/dL 70-100 Above upper panic limits [facility] ([facility]) Blood Urea Nitrogen 19 mg/dL 7-18 Above high normal [facility] ([facility]) Glomerular Filtration Rate Laboratory test result Normal (applies to non- numeric results) [facility]) <content>Units are mL/min/1.73 m2</content>
<content></content>
<content>Chronic Kidney Disease Staging per NKF:</content>
<content></content>
<content>Stage I & II GFR >=60 Normal to Mildly Decreased</content>
<content>Stage III GFR 30- 59 Moderately Decreased</content>
<content>Stage IV GFR 15-29 Severely Decreased</content>
<content>Stage V GFR <15 Very Little GFR Left</content>
<content>ESRD GFR <15 on ASSOCIATE EMBALMER/FUNERAL DIRECTOR</content>
<content></content> Sodium Level 133 meq/L 136-145 Below low normal [facility] ([facility]) Creatinine For GFR 1.25 mg/dL 0.70-1.30 Normal (applies to non -numeric results) [facility] ([facility]) Potassium Serum 4.9 meq/L 3.5-5.1 Normal (applies to non-numeric results) [facility] Chloride Level 96 meq/L 98-107 Below low normal [facility] ([facility]) Carbon Dioxide Level 31 meq/L 21-32 Normal (applies to non-num issac results) [facility] ([facility]) Anion Gap 6 meq/L 8-16 Below low normal [facility] ( [facility]) Calcium Level 10.1 mg/dL 8.8-10.2 Normal (applies to non-numeric re sults) [facility] ([facility]) ID Date Data Source [id number] 07/25/2021 09:36:00 AM EDT [facility] ([facility]) Name Value Range Interpretation Code Description Data Allyson rce(s) Supporting Document(s) HDL Cholesterol 36 mg/dL Below low normal [facility] ([facility]) Triglycerides Level 205 mg/dL Above high normal [facility] ([facility]) Cholesterol Level 125 mg/dL Normal (applies to non-numeri c results) [facility] ([facility]) LDL Cholesterol 48 mg/dL Normal (applies to non-numeric results) [facility] ([facility]) Non-HDL-C 89 mg/dL Normal (applies to non-numeric resul ts) [facility]) Cholesterol Risk Ratio 3.472 Normal (applies to non-n umeric results) [facility]) ID Date Data Source [id number] 07/25/2021 09:36:00 AM EDT [facility] ([facility]) Name Value Range Interpretation Code Description Data Allyson rce(s) Supporting Document(s) White Blood Count 11.7 10 4.0-10.0 Above high normal [facility] ([facility]) Red Blood Count 5.28 10 4.30-6.10 Normal (applies to non-numeric results) [facility] ([facility]) Hemoglobin 17.7 g/dL 13.5-17.5 Above high normal [facility] ([facility]) Hematocrit 50.9 % 42.0-52.0 Normal (applies to non-numeric resul ts) [facility]) Mean Corpuscular Volume 96.4 fl 80.0-96.0 Above high normal [facility] ([facility]) Mean Corpuscular HGB Conc 34.8 g/dL 32.0-36.5 Normal (applies to non-numeric results) [facility]) Mean Corpuscular Hemoglobin 33.5 pg 27.0-33.0 Above high normal [facility] ([facility]) Red Cell Distribution Width 12.3 % 11.5-14.5 Norm al (applies to non-numeric results) [facility] ([facility]) Platelet Count, Automated 280 10 150-450 Normal (applies to non-numeric results) [facility]) Nucleated Red Blood Cell % 0.0 % 0-0 Normal (applies to n on-numeric results) [facility]) ID Date Data Source [id number] 07/25/2021 09:33:00 AM EDT [facility]) Name Value Range Interpretation Code Description Data Allyson rce(s) Supporting Document(s) Creatinine, Urine 49.2 mg/dL Normal (applies to non-numeri c results) [facility]) Malb Urine Siemens 214.0 mg/L Normal (applies to non-numer ic results) [facility]) Andre/Creat Ratio 434.9 MCG/MG 0.0-30.0 Above high normal [facility] ([facility]) THE [employer] STATES THAT MICROALBUMINURIA IS PRESENT IF THE MICROALBUMIN/CREATININE RATIO EXCEEDS 30 MCG/MG. THE THRESHOLD FOR CLINICAL ALBUMINURIA IS REACHED AT 300 MCG/MG. THE CLASSIFICATION OF A PATIENT SHOULD BE BASED UPON AT LEAST 2 OF 3 ABNORMAL RESULTS ON SPECIMENS COLLECTED WITHIN A 3 TO 6 MONTH TIME FRAME. ID Date Data Source [id number] 07/25/2021 09:33:00 AM EDT [facility]) Name Value Range Interpretation Code Description Data Allyson rce(s) Supporting Document(s) Appearance, Urine Laboratory test result Normal (applies to non-numeric results) [facility] ([facility]) Color, Urine Laboratory test result Normal (applies to non -numeric results) [facility] ([facility]) Specific [place] Urine Auto 1.029 1.002-1.035 Norm al (applies to non-numeric results) [facility]) PH,Urine 6.0 units 5.0-9.0 Normal (applies to non-numeric resul ts) [facility]) Protein, Urine Auto Laboratory test result Above high norm al [facility]) Ketone, Urine Auto Laboratory test result Normal (applies to non-numeric results) [facility]) Urobilinogen, Urine Auto 0.2 mg/dL 0.0-2.0 Normal (applies to non-numeric results) [facility]) Glucose, Urine (Ua) Auto Laboratory test result Above high normal [facility] ([facility]) Nitrite, Urine Auto Laboratory test result Ailyn l (applies to non-numeric results) [facility]) Bilirubin, Urine Auto Laboratory test result Nor mal (applies to non-numeric results) [facility]) Blood, Urine Blood Laboratory test result Normal (applies to non-numeric results) [facility] ([facility], ) WBC, Urine Auto 0 /HPF 0-3 Normal (applies to non-numeric results) [facility] ([facility], ) Leukocyte Esterase, Urine Auto Laboratory test result Normal (applies to non- numeric results) [facility] ([facility], ) Squamous Epithelial Cell Ur AU 0 /HPF 0-6 N ormal (applies to non-numeric results) [facility] ([facility], ) Bacteria, Urine Auto Laboratory test result Norm al (applies to non-numeric results) [facility] ([facility], ) RBC, Urine Auto 0 /HPF 0-3 Normal (applies to non-numeric results) [facility] ([facility], ) Hyaline Cast, Urine Auto 0 /LPF 0-1 Normal (applies to non -numeric results) [facility] ([facility], ) ID Date Data Source [id number] 01/29/2021 08:14:32 AM EDT [facility] Name Value Range Interpretation Code Description Data Allyson rce(s) Supporting Document(s) Progress Note [facility] KBZCUj4mJcNQMoWr07/XIBawQYVth1DoBVocUUm8REzjWQWdJ9TdOJG1hV3bMHE9GIdGOmNkWsEwUUP5 lbm [file] UjCkIgPPYoM0V5BAE+AX3wRKs+Db0Wa9SfmvX6bxMbROjnHDB1KP4ONNHQD3LBMw== ID Date Data Source [id number] 01/28/2021 12:38:00 PM EDT [facility] Name Value Range Interpretation Code Description Data Allyson rce(s) Supporting Document(s) Progress Note [facility] KWYLFs8yOhXJLfEj40/XHMjxNNYwe6RiSBgxJYf1PYizYQAwW2EzLNZ9zX9sFJF4KIyPMqCoViHzRUId lbm TfTswDIuDoIJJaXhjQZvLpCCtxSdatpIRsKI9YwLD4KIRnH54eAMHmEFIlA0GkGVYwVVS+Ja3XBSRdzN TpPS1ULzpM2P8oxpd3Ev1txZ0HrTMXghvdXrkUmxtuxV1JadOHKiNF8Y4jeJ9incu+PXLx/yK6R9ewWu 9wiziMSndrPPfBhUxFq8uxaZWBg1/MmjG7yiRwe2ca g0iJ/r3461/LspxTk0SMB3zc5yKxBspqFox/9HPuD9212jCgK9SaxnxjLh4Z5YhBVlS3jvl96K3i2O6s iY/tmLIMDUK12kFcEYsjkOK5vn8okv1g4xzyAv+NUzq+KxdYz+FwPTnJApFvK8IgGuYuFBJStN+tEu15 R2T2fbM5c5WmCcrqBlb4ykXUcwoHvWHDZqn1aaa/granda [file] 4W/Jose Luis+sj8fONs38iFbywaN4dxzfJlwIB6I/s8gA3jsxqjCcMazn6gYrNvlAuAwnhOSG84VQlIQmZuqJ [file] IlPHZ9LIUgAgEkAOd9DjK3JcGeTX3bULTSMv3+VDtkuDMjrXnmGPOPPhZ9CZO0ULtnHGISVg2A ID Date Data Source [id number] 01/28/2021 12:37:55 PM EDT [facility] Name Value Range Interpretation Code Description Data Allyson rce(s) Supporting Document(s) Progress Note [facility] BNPUIe2qZiLJEoAc81/RIApgTQBow2JtOMksPJg4VLopCFAiS7DsBUI8eI2fFNK5TSbAIdKzTyVyTJEz lbm [file] U+RL8tDWh+Ig2Mh3LlavT1ksIeGCxxVxF8SX7VMIPRX6HLPa== ID Date Data Source [id number] 12/19/2020 03:06:00 PM EDT [facility] ([facility], ) Name Value Range Interpretation Code Description Data Allyson rce(s) Supporting Document(s) Surgical Pathology Consult Laboratory test result [facility] ([facility], ) Surgical Pathology Report Name: BRIELLE ACOSTA Collection Date: 12/19/2020 00:00 Received Date: 12/19/2020 15:07 Physician(s): KHRIS FAY DO ADJAPONG, OPOKU, MD Specimen(s) Received A: Material received for consultation, LACIE, [facility], [id number] Clinical History Lung mass. This 60 year-old man is presenting with a left upper lobe lung nodule. Diagnosis LUNG, LEFT, CORE NEEDLE BIOPSY: NECROTIZING GRANULOMATOUS INFLAMMATION. HISTOPLASMA YEAST PRESENT. (See Microscopic Description). /pmw Electronically Signed By Raffy Benjamin M.D., Attending Pathologist 12/27/2020 08:38:55 Gross Description Received from [facility] in [place], [place], are 2 H and E stained slides and 1 paraffin block, labeled [id number], with the corresponding pathology report. Microscopic Description [...] developed and their performance characteristics determined by [facility] Pathology department. They have not been cleared or approved by the US Food and Drug Administration. The FDA has determined that such clearance or approval is not necessary. ID Date Data Source [id number] 12/27/2020 08:38:00 AM EDT [facility] Surgical Pathology ReportName: ELEN ACOSTAMRN: [id number] Number: [id number] Date: 12/19/2020 00:00Received Date: 12/19/2020 15:07Physician(s): KHRIS FAY,DO PEREZ,JENNIFER,CHELEpecimen(s) ReceivedA: Material received for consultation, NAVARRO, [facility],[id number] HistoryLung mass. This 60 year-old man is presenting with a left upper lobe lungnodule. DiagnosisLUNG, LEFT, CORE NEEDLE BIOPSY: NECROTIZING GRANULOMATOUS INFLAMMATION.HISTOPLASMA YEAST PRESENT. (See Microscopic Description). /pmwElectronically Signed By Raffy Benjamin M.D., Attending Pathologist12/27/2020 08:38:55 Gross DescriptionReceived from [facility] in [place], [place], are 2 H and Estained slides and 1 paraffin block, labeled [id number], with thecorresponding pathology report. Microscopic DescriptionI agree [...] developed and their performance characteristics determined by [facility] Pathology department. They have not been cleared or approved by the USFood and Drug Administration. The FDA has determine d that such clearanceor approval is not necessary. Name Value Range Interpretation Code Description Data [facility] Document(s) ID Date Data Source [id number] 12/11/2020 10:42:00 AM EDT [facility] ([facility], ) Name Value Range Interpretation Code Description Data [facility](s) Supporting Document(s) Surgical pathology study Laboratory test result [facility] ([facility], ) <content>Addendum 1 Entered: 12/28/2020924</content>
<content></content>
<content>This addendum is to report [facility] consultation:</content>
<content></content>
<content>Lung, left, core needle biopsy:</content>
<content>Necrotizing granulomatous inflammation. Histoplasma yeast present.</content>
<content></content>
<content>See JIM SINCLAIRU [id number]</content>
<content>12/28/2020924</content>
<content>Addendum Signed____ JENNIFER PEREZ MD 12/28/2020924</content>
<content> [...] 12/13/2020 1325</content>
<content></content> ID Date Data Source [id number] 12/11/2020 09:36:00 AM EDT [facility] ([facility]) Name Value Range Interpretation Code Description Data Allyson rce(s) Supporting Document(s) Laboratory test finding (navigational concept) Laboratory test result [facility] ([facility]) ID Date Data Source [id number] 12/10/2020 08:56:00 AM EDT [facility] ([facility]) Name Value Range Interpretation Code Description Data Allyson rce(s) Supporting Document(s) Prothrombin Time 12.4 s 12.5-14.3 Normal (applies to non-numeric results) [facility] ([facility]) Inr 0.91 Normal (applies to non-numeric resul ts) [facility] ([facility]) THERAPUTIC HUMAN INR VALUES INDICATIONS NORMAL RANGES PROPHYLAXIS/TREATMENT OF: VENOUS THROMBOSIS 2.0-3.0 PULMONARY EMBOLISM 2.0-3.0 PREVENTION OF SYSTEMIC EMBOLISM FROM: TISSUE HEART VALVES 2.0-3.0 ACUTE MYOCARDIAL INFARCTION 2.0-3.0 VALVULAR HEART DISEASE 2.0-3.0 ATRIAL FIBRILLATION 2.0-3.0 MECHANICAL VALVES(HIGH RISK) 2.5-3.5 RECURRENT MYOCARDIAL INFARCTION 2.5-3.5 ID Date Data Source [id number] 12/10/2020 08:56:00 AM EDT [facility] ([facility]) Name Value Range Interpretation Code Description Data Allyson rce(s) Supporting Document(s) Platelets [#/volume] in Blood by Automated count 305 10 150-450 Normal (applies to non-numeric results) [facility] ([facility]) aPTT in Platelet poor plasma by Coagulation assay 26.4 s 24.2-38.5 Normal (applies to non-numeric results) [facility] ([facility]) ID Date Data Source [id number] 11/21/2020 09:15:00 AM EST [facility] ([facility]) Name Value Range Interpretation Code Description Data Allyson rce(s) Supporting Document(s) PDFReport Laboratory test result [facility] ([facility]) FVC-Pred 3.77 L [facility] ([facility]) FVC-Pre 3.48 L [facility] ([facility]) FVC-%Pred-Pre 92 L [facility] ([facility]) Fev1-Pred 2.84 L [facility] ([facility]) FVC-LLN 2.99 L [facility] ([facility]) Fev1-%Pred-Pre 73 L [facility] ([facility]) Fev1-Pre 2.10 L [facility] ([facility]) Fev1-LLN 2.18 L [facility] ([facility]) Fev6-Pred 3.57 L [facility] ([facility]) Fev6-LLN 2.81 L [facility] ([facility]) Fev6-%Pred-Pre 97 L [facility] ([facility]) Fev6-Pre 3.48 L [facility] ([facility]) Gil6uqw-Bqys 75 % [facility] ([facility]) Psh9vjj-Nlj 60 % [facility] ([facility]) Fwr7rlp-%Pred-Pre 79 % [facility] ([facility]) Wtk2gsn-HWJ 66 % [facility] ([facility]) Lyg3iit-Qjyf 95 % [facility] ([facility]) Buq8rdb-%Pred-Pre 105 % [facility] ([facility], ) FEFMax-Pred 7.85 L/E/sec [facility] ([facility], ) Vae4sqx-Srg 100 % [facility] ([facility]) FEFMax-%Pred-Pre 46 L/E/sec [facility] ([facility]) FEFMax-Pre 3.61 L/E/sec [facility] ([facility]) Nbx0085-Ucqe 2.39 L/E/sec [facility] ([facility]) FEFMax-LLN 5.91 L/E/sec [facility] ([facility]) Mtp4214-SXU 1.05 L/E/sec [facility] ([facility]) Cur9718-%Pred-Pre 54 L/E/sec [facility] ([facility]) Jxj5977-Psc 1.29 L/E/sec [facility] ([facility]) ExpTime-Pre 5.96 sec [facility] ([facility]) Hrp1qyj6-Tdrb 79 % [facility] ([facility]) Ijb7rwn1-HXT 70 % [facility] ([facility]) Idg3evn1-Rtt 60 % [facility] ([facility]) Jub3qlh0-%Pred-Pre 76 % [facility] ([facility]) ID Date Data Source [id number] 10/26/2020 10:55:07 AM [facility] Name Value Range Interpretation Code Description Data Allyson rce(s) Supporting Document(s) Progress Note [facility] FQSLTj2yXmMXPkSo92/SEIbpZIMui9CtLXjvDNg9YVojLJOkG9UcXZI5jO2xJYI3VDfTGgYoKnYkIHN7 [facility] [file] ICAgICAgICAgICAgICAgICAgICAgICAgICAgICAgICAgICAgICAgICAgICAgICAgICAgICAgICAgICAg ICAgICAgICAgICAgICAgICAgICAgICANCiAgICAgICAgICAgICAgICAgICAgICAgICAgICAgICAgICAg ICAgICAgICAgICAgICAgICAgICAgICAgICAgICAgIC AgICAgICAgICAgICAgICAgICAgICAgICAgICAgICAgICANCiAgICAgICAgICAgICAgICAgICAgICAgIC AgICAgICAgICAgICAgICAgICAgICAgICAgICAgICAgICAgICAgICAgICAgICAgICAgICAgICAgICAgIC AgICAgICAgICAgICAgICANCiAgICAgICAgICAgICAg ICAgICAgICAgICAgICAgICAgICAgICAgICAgICAgICAgICAgICAgICAgICAgICAgICAgICAgICAgICAg ICAgICAgICAgICAgICAgICAgICAgICAgICANCiAgICAgICAgICAgICAgICAgICAgICAgICAgICAgICAg ICAgICAgICAgICAgICAgICAgICAgICAgICAgICAgIC AgICAgICAgICAgICAgICAgICAgICAgICAgICAgICAgICAgICANCiAgICAgICAgICAgICAgICAgICAgIC AgICAgICAgICAgICAgICAgICAgICAgICAgICAgICAgICAgICAgICAgICAgICAgICAgICAgICAgICAgIC AgICAgICAgICAgICAgICAgICANCiAgICAgICAgICAg ICAgICAgICAgICAgICAgICAgICAgICAgICAgICAgICAgICAgICAgICAgICAgICAgICAgICAgICAgICAg ICAgICAgICAgICAgICAgICAgICAgICAgICAgICANCiAgICAgICAgICAgICAgICAgICAgICAgICAgICAg ICAgICAgICAgICAgICAgICAgICAgICAgICAgICAgIC AgICAgICAgICAgICAgICAgICAgICAgICAgICAgICAgICAgICAgICANCiAgICAgICAgICAgICAgICAgIC AgICAgICAgICAgICAgICAgICAgICAgICAgICAgICAgICAgICAgICAgICAgICAgICAgICAgICAgICAgIC AgICAgICAgICAgICAgICAgICAgICANCiAgICAgICAg ICAgICAgICAgICAgICAgICAgICAgICAgICAgICAgICAgICAgICAgICAgICAgICAgICAgICAgICAgICAg ICAgICAgICAgICAgICAgICAgICAgICAgICAgICAgICANCjw/pVYoL1gbnJPudvI0L8tqYm5ICz2XPZ1l g6CtWIVpCUfpdyArRzlZVqDjBMJsHqdFEhn1NObdFX 7VwQWbT8FhX8WqGGjsNX7YCRAiTEKhzLPqVLSmTVSvUcR1ECMaXUuyZD3QrWUeLEtrXDKfGVWjLnYcMC OtZTSjJLTiUHWiMYXBCUMxOXTfGfWsPERsATTxHS5IHDArL117ndVrMy7HRp2QLfQxKQ0oen4GBlynRH VzEwsOFkp3MXnpJF5WbCWojGOsICBrBNQFXkEoB2al o4OyJtjcVJUGZLiyXR5En6UwzOQjICv+Ja6DPX7om1ZdUAdnPBVqCJ4ijv0DRCjUDcFzE2JlrIdzMJOc q9ftKPIpYP7ikFYuUKZ9IDH5gtSaFEVcCMK5LSkcLOWsAFAoPZ2gPO5pRQSqOTPxIpKiRTGPHA8XUTZc VGLivCYrPOSvYVCQGH4YSPkdWXY9FWGrxvMmrUGtEZ seQF9YZYIpveUeAampJDILRMu+Ek6WJM8xi6IyLIc0TLYbLN1skj3PJJvEPiNbX0Y8eQUeS4Q3SElvGe 2MSSRsQQDwToNvETCABVsvHN1CJH2nlzS3SF2JaJGkOVSdYWGpfMYjVWc9P05qyAGfKClxSG2UJJZ+Pi A+Iy9NIWApQSXyHCOpXpTvRWGMMbTwM7JtK6IRw5Fv N2VlNA56wKgbmrYfIEofVP8NQJ8xHBOcZNAMUR7UmGFgvR0qgePmLDSyYDFTDqNjI37mtIBhVRQaKRD1 AFZoYc2GXTLcQ8PfgsMzqVgplpTbVCUaYTVSIT1KHBfrsbXydWCvlHewAN46zEmiBB7IFj3YPzMhJT7h oy3AjPDgPs1FHBD0EN1SWEChOKMyPKGsQGX7VAQbMm CmUUcyKUNeHUOfVXU8IWIbIEZqLE1CGrBvDGUkEcx1QDXsFMDsNUYgiq8JZQJgAISqLQNpJvEnXIZyCQ SyQQviTADmMTWhMNT9CAOsCXEcUK8VEfVgKDPmWAK4ZqCcNKWiKKLpnl4IUUGiPXFgUawzKxEyLJRgVJ UtDAmgAQXaQVQ6GLz5OWUiOEGtGB3WItAdKHJuIUC3 KIRqZFUeEUQhyn4HYECdUHVvLRx6MjSmHUOlXSKtHYsbSFNzQNRmJVTmRWCiRRNjIG3WYgTlQVXjHVC1 DJCwCHBeJIXers9MGFVySMQzQwufLTDoYEWsQAEwJYedJPQtHGO4Uex0TPSeAMCfPZ3KNrDgGBAkOMH1 ZXCjDXVbZBEzet9LBTSkXOUdGEN0VWTkZCQnNQDuNY isTJKmFDW2ALxgJYNjZDCqNO4NQqQuJJToLAl7XoVdVILcJYUvyl5YDCLfWKPjFJLeWKUzDNVjTVEgYF hjKCNiAOX8YDXbIOHhCHHpDM7AQpBeYMXxIoS1VnAjWGCrOLGltt6TULYnYJMzHGz0RuRmKDFxYPAiAR dyNHWpNAFsKKBgMBSaSEFtSQ3TCwEqLJEsUzM1EWBa QTNzHDAkmv0WCKIlEQAkWevsXJXmHBVzYXHlCIapOIAqXVNzAVZ0SGCyZATnSH9NVxLjHZNjNgEzTcMw OWRgBWIkxg5RJBLwYXHnIrEeMJDaSHMgAGQnJYwsQUZiUFV9TEE2JDTgMJSoZZ1RIbFvQPTwJpV8ICQq OTBlFKVxej1TXZJeWDAiRIybOAOeUSQfJTKcCBzvTL QySXG5YmiiDQEdJCNqGX5KTwTgTITaMwC8LLnzNATiZXDitp2LTDVrWDSxZaHzNvFsRNWgYISsJBedIA LjXOV2ADl6BISoIDQqNF0PJlSgBEOfXrejEgXpIASzWLGlrc7WDQHuXDCrZqChUOWdGDPbUXAiRWbpAU AnXHB6ZSuzWFIhHWOcIX9KYzPlYIJdVtqwRLWyCMZr XYPkqp5DRTUhASHsXYZtGQLtQBDvFVQoJTsuPBPzEMI8NWcsKEGwPXZbQF1CGsVcVYviUEUEOxp3ADvv D2a8NDQ8FJ1RV6Dww2MkPYSeHMZVREkdGT3hadSoGOJyDp3RI4sGQpgyYVRqXDymCfA0MJR0XUEbIwm5 KUH6UVL9ZtT7TTUcQK6tCWE5ZFK1HBU2UBN8BvK6PV X2OOheDZKbSEb6SRVcJIAmNiYlOW1CLe2SGwN3TKT3wAQdOd3QEpq3FQWEKjHoWB9TZIt= ID Date Data Source [id number] 09/24/2020 08:58:28 AM EST [facility] Name Value Range Interpretation Code Description Data Allyson rce(s) Supporting Document(s) Progress Note [facility] VUGDSi5xKeWRUnGu57/HQQbkTLWpw8NjCIixYFg2UJwlSWJpH3VhOPJ8fP8iQDK7GJrMHcAgMdGpIsE4 lbm [file] OTVlYmY+JN7lAUl+Ol5Kw1JthoC9jpRmMKh0Hhd5Fx7GJCAVT4LMTf== ID Date Data Source [id number] 09/20/2020 09:22:[address] [facility] Name Value Range Interpretation Code Description Data Allyson rce(s) Supporting Document(s) Progress Note [facility] GRATTi8nMxRDYcXd07/KPCfoDMXpp3YzFQnuMTw2SFekFREhW5ScXQV1kD2aKBG0ASzRXaAtDvVdMqH4 lbm [file] DQo+Oo5Cw1QsjzJ3bbPlPJwyIUuoQD3KKGOIE4UCPf== ID Date Data Source [id number] 08/30/2020 10:18:00 AM EST [facility] ([facility]) Name Value Range Interpretation Code Description Data Allyson rce(s) Supporting Document(s) Glucose [Mass/volume] in Urine collected for unspecified duratio n 246 Abnormal (applies to non-numeric results) Glucose [facility] ([facility]) ID Date Data Source [id number] 08/30/2020 10:18:00 AM EST [facility] ([facility]) Name Value Range Interpretation Code Description Data Allyson rce(s) Supporting Document(s) Hemoglobin A1c/Hemoglobin.total in Blood 9.2 Abnormal (applies to non-numeric results) HbA1C [facility]) ID Date Data Source [id number] 08/20/2020 09:39:00 AM EST [facility] ([facility]) Name Value Range Interpretation Code Description Data Allyson rce(s) Supporting Document(s) Lipase [Enzymatic activity/volume] in Serum or Plasma 42 U/L Lipase [facility]) ID Date Data Source [id number] 08/20/2020 09:39:00 AM EST [facility]) Name Value Range Interpretation Code Description Data Allyson rce(s) Supporting Document(s) Amylase [Enzymatic activity/volume] in Serum or Plasma 45 U/L Amylase [facility]) ID Date Data Source [id number] 08/20/2020 09:39:00 AM EST [facility]) Name Value Range Interpretation Code Description Data Allyson rce(s) Supporting Document(s) Thyrotropin [Units/volume] in Serum or Plasma by Detec tion limit <= 0.05 mIU/L 1.970 uIU/mL TSH [facility] ([facility]) ID Date Data Source [id number] 08/20/2020 09:39:00 AM EST [facility] ([facility]) Name Value Range Interpretation Code Description Data Allyson rce(s) Supporting Document(s) Thyroxine (T4) free [Mass/volume] in Serum or Plasma 1.15 ng/dL T4,Free(Direct) [facility] ([facility]) ID Date Data Source [id number] 08/20/2020 09:39:00 AM EST [facility] ([facility]) Name Value Range Interpretation Code Description Data Allyson rce(s) Supporting Document(s) Leukocytes [#/volume] in Blood by Automated count 9.8 x10E3/uL WBC [facility] ([facility]) Erythrocytes [#/volume] in Blood by Automated count 4.76 x10E6/uL RBC [facility] ([facility]) Hemoglobin [Mass/volume] in Blood 15.8 g/dL He moglobin [facility] ([facility]) Hematocrit [Volume Fraction] of Blood by Automated count 45.1 % Hematocrit [facility] ([facility]) Erythrocyte mean corpuscular volume [Entitic volume] by Automate d count 95 fL MCV [facility] ([facility]) Erythrocyte mean corpuscular hemoglobin concentration [Mass/volume] by Automated count 35.0 g/dL MCHC [facility] ([facility]) Erythrocyte mean corpuscular hemoglobin [Entitic mass] by Automated count 33.2 pg Above high normal MCH [facility]) Immature granulocytes/100 leukocytes in Blood 1 % Immature Granulocytes [facility] ([facility]) Lymphocytes/100 leukocytes in Blood by Automated count 35 % Lymphs [facility] ([facility]) Neutrophils/100 leukocytes in Blood by Automated count 49 % Neutrophils [facility]) Monocytes/100 leukocytes in Blood by Automated count 9 % Monocytes [facility] ([facility]) Eosinophils/100 leukocytes in Blood by Automated count 4 % Eos [facility] ([facility]) Platelets [#/volume] in Blood by Automated count 280 x10E3/uL Platelets [facility] ([facility]) Morphology [Interpretation] in Blood Narrative N/A Hematology Comments: [facility] ([facility]) Basophils/100 leukocytes in Blood by Automated count 2 % Basos [facility] ([facility]) Lymphocytes [#/volume] in Blood by Automated count 3.4 x10E3/uL Above high normal Lymphs (Absolute) [facility] ([facility]) Neutrophils [#/volume] in Blood by Automated count 4.9 x10E3/uL Neutrophils (Absolute) [facility] ([facility]) Immature granulocytes [#/volume] in Blood 0.1 x10E3/uL Immature Grans (Abs) [facility] ([facility]) Eosinophils [#/volume] in Blood by Automated count 0.4 x10E3/uL Eos (Absolute) [facility] ([facility]) Monocytes [#/volume] in Blood by Automated count 0.9 x10E3/uL Monocytes(Absolute) [facility] ([facility]) Basophils [#/volume] in Blood by Automated count 0.2 x10E3/uL Baso (Absolute) [facility] ([facility]) Erythrocyte distribution width [Ratio] by Automated count 12.5 % RDW [facility] ([facility]) Nucleated erythrocytes/100 leukocytes [Ratio] in Blood by Automa james count N/A NRBC [facility] ([facility]) Immature cells [#/volume] in Blood N/A I mmature Cells [facility] ([facility]) ID Date Data Source [id number] 08/21/2020 04:05:00 AM EST [facility] Name Value [...] 0.0-0.1 [facility] ID Date Data Source [id number] 08/21/2020 06:06:00 AM EST [facility] Name Value Range Interpretation Code Description Data Allyson rce(s) Supporting Document(s) T4,Free(Direct) 1.15 ng/dL 0.82-1.77 [facility] ID Date Data Source [id number] 08/21/2020 08:08:00 AM EST [facility] Name Value Range Interpretation Code Description Data Allyson rce(s) Supporting Document(s) Amylase 45 U/L 31-110 [facility] ID Date Data Source [id number] 08/21/2020 06:06:00 AM EST [facility] Name Value Range Interpretation Code Description Data Allyson rce(s) Supporting Document(s) TSH 1.970 uIU/mL 0.450-4.500 [facility] ID Date Data Source [id number] 08/21/2020 08:08:00 AM EST [facility] Name Value Range Interpretation Code Description Data Allyson rce(s) Supporting Document(s) Lipase 42 U/L 13-78 [facility] ID Date Data Source [id number] 07/02/2020 11:55:52 AM [facility] Name Value Range Interpretation Code Description Data Allyson rce(s) Supporting Document(s) Progress Note [facility] DBQJHh6vPvPMKpVb82/FSYqtDYXio0FuUAwqUHj9DNjjWDBhF4BjBRD2eG6gXBK0CLcHSmDsTlFrBEK1 lbm [file] IBShmqG3IV/4+WBVHB2aO2vjUc0BFsImeuhIjs/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 [file] ICAgICAgICAgICAgICAgICAgICAgICAgICAgICAgIC BmZGVuOFHlOFHtYHHfDEYoZPWoFMHcKDAsFZNbXMLbTJDeLQVdVGKtYGGnGYJwKHBmBHSnDU6ENZRpZE AgICAgICAgICAgICAgICAgICAgICAgICAgICAgICAgICAgICAgICAgICAgICAgICAgICAgICAgICAgIC AgICAgICAgICAgICAgICAgICAgICAgICAgICAgICAg DHOkEV9PBIFgBFHgFMAtITAtUAVvMMAhLLLnDYCxNVXgCBSzOWXsFBKeJGHmBCTkROGtVKKiGPNrJSLq MYTrQZPgBUSaQYOiIRNoRDOjZLZlNGShMGXaNQVdMYBjBZFiKFVoXRGbSGMnSL0LRPRyGGPmTWFfOHGd ICAgICAgICAgICAgICAgICAgICAgICAgICAgICAgIC HrYUYnDZZsOJUkSQXcAXZcYKTjRJOkQDEpLTIfPDHyOJYoKRCjQRQhBSWkIOGsITWyTQMzTJMlGW7EBM AgICAgICAgICAgICAgICAgICAgICAgICAgICAgICAgICAgICAgICAgICAgICAgICAgICAgICAgICAgIC AgICAgICAgICAgICAgICAgICAgICAgICAgICAgICAg INGaRGLzLL6GFNLeILXeWNFxMEIlTMSyFAJnFGNxKHHtGSYfRCZoYKQmLSSmWKNgNPMpUKFhMLEyYTYk LFBhTNHtHAGnQHCrBFZsDAUsKMJbQTXqWPLtAARvLDZpHONsFWZiYLViMPAnNRJoVA1LBLCmMTJiBJDv ICAgICAgICAgICAgICAgICAgICAgICAgICAgICAgIC AgICAgICAgICAgICAgICAgICAgICAgICAgICAgICAgICAgICAgICAgICAgICAgICAgICAgICAgICAgIA 0KICAgICAgICAgICAgICAgICAgICAgICAgICAgICAgICAgICAgICAgICAgICAgICAgICAgICAgICAgIC AgICAgICAgICAgICAgICAgICAgICAgICAgICAgICAg JEJuTFTsGITpIY3RHOQtJBAtOWOwKPIyGMFiURHdHSQzETYyEMGjQUYjWZHvGOUcUOKbMPXrAPRtPFCb JIAiVGCdRWFiNWEpLUPhIQAeLSAkFLPqFZZyPGEqRXRqGCFeIEVaKFPrBZTlWHLyXZOfWA7UXS83aFWu y7M6FSEbDV6hbnd/Qw0QCRujliDlyIJjEM4PEmNfKH 1fqs2MEpSxQT6tcc1DOIyAZnTtK7S6qJChBPQcDUWXZsCaH32gFYnkZg77SLhqNQJmRmBgNLq1Jd7YNg McE2hyQSFdFpE4BBCcYbJ2QDPeGdJ0QLIpWxMaRIUzIPNgZUJyPTFKLXA3HVIiKdGrBiYjOZGrJJhaPU NPDX9ALfThN8JvyU56CFlXFk4+DQplbmRvYmoNCjM5 JQEhx6JnXQr1MC6KRMKnKxqvj4UsJWErFIPOKRcoPP7NQJK7GUCzKINpQq6UPDYiG024crXzVV2JJn1K HdOjFT2dvp4HXNTwSLYsQomOGty5FXcvXS7EjZVhAEnFsb1jvxVcnbLBb9JrtiSkyVUAIM9mL7d6BLsc QQVyyOU0GCJmcymoNTGlKSXcBRErXA3wEZMeUCLqSb WmRDQWVR3BQKSiCEPfqZGrBDZxHYTYCU0PMTybTKT3MJDynaHehAGyHVnnFC6DUTPypePbDwwvAUHXNM o+Se6CMR0zh9IjCMp4SDXlBV5zmy7ZSXtWNuPyJ0E4vCDgT3Z6QHhyLq2OBDMjUKMbPqdqVCPNBIunOV 5ZVM4gznB2CF8DjOBsENXmVBZzvBKiMRs7U71rkCEp BIriWZ7YWNI+Jose Manuel+Db7ZMOUjVVExHLWuPiFcDARCFeKcW5QmK5TPu3CcX1NrOT09qNmjvrBuJBhnGL7H NE2dUGNjAGHGEX3TbPJkrK0jeuZcOIJfAGYJZlWwQ87ntCOyTYDzLII0GPDuDg4CFVMhA6MwftGapNcy hkVqPGBqNVWCWS9CGMimmgGvfRFwbFwhUO12lAbaCU 6EPn8OApMrZS1ncb9MiUKmTg0FIKE4Ie7JFBOsYQNtWXLgKTM1VTOaSzVeYHizJJJlKPCxKSI4QMCdYF CdAC8YEfYtSPXoGAV0YoQnAMDcALPdly5KJVRdLXA9NlB8HaTuPSNfLZEvFFewOEMnKCOaMZQ5UIQbWI TfLU9SNiYaFFCcWNAsBjHeBXXtGCIfhi3BVFImQCRl XuKuILKxXNZjSNCeXOljIKRgULN8LST9EMDzCJHgBT9AYuPuDDEoIQFaFLNcBNOpZJIxqc0KTMCmYJLm BQzxAiEpGIIjJYKwXDfpOAYzINZ7LXL9MSPzDHGiJU2ZDuXmJQCdSEHkXOxvGUWjGUHogx2JBANlLSHc JuTqYHVgZWCnNGJaHMbvCZTlJFC5LSZrCJFnXFLbWJ 2FUsZmMBLqDTW7IbaaRJVsBWPsfk7LJBCaPXFbNwZ1CJCwEAPbOQSrEBqwRLBqARL7KrK4XRWoBKJsLQ 5LWyJgPOWyUzB8JQVnGHAgRRAnxv0SXHNzZNGyEIi4SqVhADYkVZMuZVpoXRSdIYJrFNQ3QSUrNCUxXZ 2NCtGiJBJsZeR3JKYgFMKlSMRwed1DSWFeNNImULhs CMPhNTFfHMJdJGqlHIPpNCZ7BYLnPBMqMIBiAO0BZmUeMLByStBfFGXuFSOzDNBdbc6CVWAqIUWbAhA8 UuKrXIRqNYQlHXmeAJAzPWN6MiL7TZXcIMIuVO0IVhHpGILxSxM9MEJoTZDbGXJjkg6DOABxEJLbIav5 WuDrFLZlINNoQPgzDJQjXWS5TWj0BCYlARGuBF5ZNg BmZZLnLsf5EZurEFSjSMQmxw7QHCNtJODhEIU5EnQmUQQoXQGbRLosLWVyWOA9FFSlCCUxDSFcQQ4WBz BkEFGnWul5OSteAEAzHBGuem1BBPPqTXVlUHowSTDoNSBoXRTnDXlcWIBtQSXtKCp2MKFtHGOoDC2XCc YaIRPbKDWqNAAiLYWyPGSyho6GRRSvLDZ9HYNtSWSh KIQmAORfMEnnLEHcMNMaXLQ2VQUhYDEkWO9RKyJxXPFmAVZ4TGCgFDBiTSBfii4CKSRjERY8NbWiDkVd JAQpMLIeBDphBHDaLZQeRmq4ALFzSFKoAV6YAmKuFNYrNFJ4IJNmVONjFUOfut8CnIYbwRjwwi0IZOgO Ib1OhKzoQCTdYUmzDg2oaVQ2MDGsRUEMXa7QwoIxYN KjMXCKWAgoLLJfLDJpQUJsVYU1GaBoXVB9Z2JgDOYmJEEdTFt2RTrhWmD9YoD0ODKoTlEmDgxsPWNwFr PxDEE9DeWhPPD0PSXrGDJyYHz+WR2aEVc+Zl[id number]== Procedure Social History Code Duration Value Status Description Data Source(s ) Alcohol intake 01/28/2021 12:00:00 AM EDT Current drinker of al cohol (finding) completed Current drinker of alcohol (finding) [facility] Tobacco use and exposure 01/28/2021 12:00:00 AM EDT Never used co mpleted Never used [facility] Smoking 01/28/2021 12:00:00 AM EDT Current every day smoker co mpleted Current every day smoker [facility] Alcohol intake 07/02/2020 12:00:00 AM EDT Current drinker of al cohol (finding) completed Current drinker of alcohol (finding) [facility] Vital Signs ID Date Data Source UNK Name Value Range Interpretation Code Description Data Source(s) Systolic blood pressure 120 mm[Hg] 120 mm[Hg] M EDENT ([facility], ) Diastolic blood pressure 70 mm[Hg] 70 mm[Hg] [facility] ([facility], ) Heart rate 90 /min 90 /min [facility] ([facility]) Oxygen saturation in Arterial blood by Pulse oximetry 99 % 99 % [facility] ([facility]) Body height 64 [in_i] 64 [in_i] [facility] 5'4" Body weight 192.00 [lb_av] 192.00 [lb_av] [facility] T ([facility]) Body mass index (BMI) [Ratio] 33.0 kg/m2 33.0 k g/m2 [facility] ([facility]) [place] body weight 130 [lb_av] 130 [lb_av] [facility] ([facility]) Body weight 87.091 kg 87.091 kg [facility] ([facility]) Body surface area Derived from formula 1.92 m2 1.92 m2 [facility] ([facility]) Oxygen saturation in Arterial blood by Pulse oximetry 98 % 98 % [facility] ([facility]) Body temperature 96.5 [degF] 96.5 [degF] [facility] ([facility]) Body height 64 [in_i] 64 [in_i] [facility] ([facility] [facility] 5'4" Body weight 194.00 [lb_av] 194.00 [lb_av] [facility] ([facility]) Body mass index (BMI) [Ratio] 33.3 kg/m2 33.3 k g/m2 [facility] ([facility]) [place] body weight 130 [lb_av] 130 [lb_av] [facility] ([facility]) Body weight 87.998 kg 87.998 kg [facility] ([facility]) Body surface area Derived from formula 1.93 m2 1.93 m2 [facility] ([facility]) Systolic blood pressure 110 mm[Hg] 110 mm[Hg] M [facility]ENT ([facility]) Diastolic blood pressure 74 mm[Hg] 74 mm[facility] Heart rate 94 /min 94 /min [facility] ([facility]) Oxygen saturation in Arterial blood by Pulse oximetry 98 % 98 % [facility] ([facility]) Body temperature 96.5 [degF] 96.5 [degF] [facility] ([facility]) Body height 64 [in_i] 64 [in_i] [facility] 5'4" Body weight 194.00 [lb_av] 194.00 [lb_av] [facility] ([facility]) Body mass index (BMI) [Ratio] 33.3 kg/m2 33.3 k g/m2 [facility] ([facility]) [place] body weight 130 [lb_av] 130 [lb_av] [facility] ([facility]) Body weight 87.998 kg 87.998 kg [facility] ([facility]) Body surface area Derived from formula 1.93 m2 1.93 m2 [facility] ([facility]) Oxygen saturation in Arterial blood by Pulse oximetry 98 % 98 % [facility] Body height 64 [in_i] 64 [in_i] [facility] (Alberto Acevedo [facility]) 5'4" Body weight 193.25 [lb_av] 193.25 [lb_av] [facility] T (Alberto Acevedo [facility]) Body mass index (BMI) [Ratio] 33.2 kg/m2 33.2 k g/m2 [facility] (Alberto Acevedo [facility]) Body temperature 97.5 [degF] 97.5 [degF] [facility] (Alberto Acevedo [facility]) Systolic blood pressure 119 mm[Hg] 119 mm[Hg] [facility] (Alberto Acevedo [facility]) Diastolic blood pressure 74 mm[Hg] 74 mm[Hg[facility] Heart rate 88 /min 88 /min [facility] (Alberto Acevedo [facility]) Systolic blood pressure 128 mm[Hg] 128 mm[Hg] [facility] Diastolic blood pressure 80 mm[Hg] 80 mm[Hg] [place] ([facility]) Heart rate 100 /min 100 /min [facility] ([facility]) Respiratory rate 24 /min 24 /min [facility] ([facility]) Body temperature 96.8 [degF] 96.8 [degF] [facility] ([facility]) Body height 64 [in_i] 64 [in_i] J[facility] ([facility]) Body weight 191 [lb_av] 191 [lb_av] [place] ([facility]) Body mass index (BMI) [Ratio] 32.8 kg/m2 32.8 k g/m2 [place] ([facility]) Body surface area Derived from formula 1.92 m2 1.92 m2 [place] ([facility]) Oxygen saturation in Arterial blood by Pulse oximetry 98 % 98 % [place] ([facility]) Oxygen saturation in Arterial blood by Pulse oximetry 97 % 97 % [facility] ([facility]) Body temperature 96.6 [degF] 96.6 [degF] [facility] ([facility]) Body height 64 [in_i] 64 [in_i] [facility] ([facility]) 5'4" Body weight 189.00 [lb_av] 189.00 [lb_av] [facility] Body mass index (BMI) [Ratio] 32.4 kg/m2 32.4 k g/m2 [facility] ([facility]) [place] body weight 130 [lb_av] 130 [lb_av] [facility] ([facility]) Body weight 85.730 kg 85.730 kg [facility] ([facility]) Body surface area Derived from formula 1.91 m2 1.91 m2 [facility] ([facility]) Systolic blood pressure 110 mm[Hg] 110 [facility] Diastolic blood pressure 70 mm[Hg] 70 mm[Hg] [facility] ([facility]) Heart rate 99 /min 99 /min [facility] ([facility]) Oxygen saturation in Arterial blood by Pulse oximetry 97 % 97 % [facility] ([facility]) Body temperature 96.6 [degF] 96.6 [degF] [facility] ([facility]) Body height 64 [in_i] 64 [in_i] [facility] ([facility]) 5'4" Body weight 189.00 [lb_av] 189.00 [lb_av] [facility] ([facility]) Body mass index (BMI) [Ratio] 32.4 kg/m2 32.4 k g/m2 [facility] ([facility]) [place] body weight 130 [lb_av] 130 [lb_av] [facility] ([facility]) Body weight 85.730 kg 85.730 kg [facility] ([facility]) Body surface area Derived from formula 1.91 m2 1.91 m2 [facility] ([facility]) Body mass index (BMI) [Ratio] 33.3 kg/m2 33.3 k g/m2 [facility] ([facility]) [place] body weight 130 [lb_av] 130 [lb_av] [facility] Body weight 87.998 kg 87.998 kg [facility] ([facility]) Body surface area Derived from formula 1.93 m2 1.93 m2 [facility] ([facility]) Diastolic blood pressure 70 mm[Hg] 70 mm[Hg] [facility] ([facility]) Heart rate 86 /min 86 /min [facility] ([facility]) Oxygen saturation in Arterial blood by Pulse oximetry 93 % 93 % [facility] ([facility]) Body temperature 96.6 [degF] 96.6 [degF] [facility] ([facility]) Body height 64 [in_i] 64 [in_i] [facility] ([facility]) 5'4" Systolic blood pressure 110 mm[Hg] 110 mm[Hg] M [facility] ([facility]) Body weight 194.00 [lb_av] 194.00 [lb_av] [facility] ([facility]) Body height 64 [in_i] 64 [in_i] JACK ([facility]) [place] body weight 118 [lb_av] 118 [lb_av] [facility] T ([facility] ) Respiratory rate 12 /min 12 /min [facility] ( [facility] ) Body height 62 [in_i] 62 [in_i] [facility] ([facility] ) 5'2" Body weight 187.00 [lb_av] 187.00 [lb_av] [facility] ([facility] ) Body mass index (BMI) [Ratio] 34.2 kg/m2 34.2 k g/m2 [facility] ([facility] ) Systolic blood pressure 122 mm[Hg] 122 mm[Hg] G [place] ([facility]) Diastolic blood pressure 78 mm[Hg] 78 mm[Hg] [place] ([facility]) Heart rate 90 /min 90 /min [place] ([facility]) Respiratory rate 24 /min 24 /min [place] ([facility]) Body temperature 96.6 [degF] 96.6 [degF] [facility] ([facility]) Body height 64 [in_i] 64 [in_i] J[facility] ([facility]) Body weight 194 [lb_av] 194 [lb_av] [place] ([facility]) Body mass index (BMI) [Ratio] 33.3 kg/m2 33.3 k g/m2 [place] ([facility]) Body surface area Derived from formula 1.93 m2 1.93 m2 [place] ([facility]) Oxygen saturation in Arterial blood by Pulse oximetry 93 % 93 % [place] ([facility]) Inhaled oxygen flow rate 0 L/min 0 L/min [place] ([facility]) Inhaled oxygen concentration 21 % 21 % [place] ([facility]) Patient Treatment Plan of Care Planned Activity Planned Date Details Description Data Source (s) Trulicity 3 MG/0.5ML Subcutaneous Solution Pen-injecto r (Dulaglutide) 01/28/2021 12:00:00 AM T [facility] Simvastatin 40 MG Oral Tablet [Zocor] 01/02/2021 12:00:00 AM EDT [place] ([facility]) ezetimibe 10 MG Oral Tablet [Zetia] 01/02/2021 12:00:00 AM [facility] ([facility]) Aspirin 81 MG Chewable Tablet 01/02/2021 12:00:00 AM [facility] ([facility]) Atenolol 50 MG Oral Tablet 01/02/2021 12:00:00 AM [facility]) 12 HR Bupropion Hydrochloride 150 MG Extended Release Oral Tablet 01/02/2021 12:00:00 AM [facility] ([facility]) Citalopram 20 MG Oral Tablet 01/02/2021 12:00:00 AM [facility]) clopidogrel 75 MG Oral Tablet 01/02/2021 12:00:00 AM [facility]) Cyclobenzaprine hydrochloride 10 MG Oral Tablet 01/02/2021 12:00:00 AM [facility]) gabapentin 600 MG Oral Tablet 01/02/2021 12:00:00 AM [facility] ([facility]) 7 ACTUAT umeclidinium 0.0625 MG/ACTUAT Dry Powder Inha ler [Incruse] 01/02/2021 12:00:00 AM [facility] ([facility]) Metformin hydrochloride 500 MG Oral Tablet 01/02/2021 12:00:00 AM E [facility] ([facility]) 3 ML Insulin, Aspart, Human 100 UNT/ML Pen Injector [N ovoLog] 01/02/2021 12:00:00 AM [facility] ([facility]) Ramipril 10 MG Oral Capsule 01/02/2021 12:00:00 AM [facility] ([facility]) ropinirole 0.5 MG Oral Tablet 01/02/2021 12:00:00 AM [facility] ([facility]) Vitamin D (Ergocalciferol) 1.25 MG (35079 UT) Oral Cap titi 01/02/2021 12:00:00 AM [facility] ([facility]) Amylases 43799 UNT / Endopeptidases 1900 0 UNT / Lipase 6000 UNT Delayed Release Oral Capsule [Creon] 12/22/2020 12:00:00 AM EDT [place] ([facility]) Vitamin D (Ergocalciferol) 1.25 MG (71729 UT) Oral Cap titi 10/29/2020 12:00:00 AM EST [facility]) ropinirole 0.5 MG Oral Tablet 10/26/2020 12:00:00 AM EST [facility]) Atenolol 50 MG Oral Tablet 10/26/2020 12:00:00 AM [facility]) 12 HR Bupropion Hydrochloride 150 MG Extended Release Oral Tablet 10/26/2020 12:00:00 AM [facility]) Citalopram 20 MG Oral Tablet 10/26/2020 12:00:00 AM [facility]) Cyclobenzaprine hydrochloride 10 MG Oral Tablet 10/26/2020 12:00:00 AM [facility]) Ramipril 10 MG Oral Capsule 10/26/2020 12:00:00 AM [facility]) clopidogrel 75 MG Oral Tablet 10/26/2020 12:00:00 AM [facility]) Omeprazole 20 MG Delayed Release Oral Capsule 10/26/2020 12:00:00 A M [facility]) 12 HR Bupropion Hydrochloride 150 MG Extended Release Oral Tablet 10/03/2020 12:00:00 AM [facility] ([facility]) Cyclobenzaprine hydrochloride 10 MG Oral Tablet 10/03/2020 12:00:00 AM [facility]) Ergocalciferol 97990 UNT Oral Capsule [Drisdol] 10/03/2020 12:00:00 AM [facility]) gabapentin 600 MG Oral Tablet 10/03/2020 12:00:00 AM [facility]) 7 ACTUAT umeclidinium 0.0625 MG/ACTUAT Dry Powder Inha ler [Incruse] 10/03/2020 12:00:00 AM [facility] ([facility]) Metformin hydrochloride 500 MG Oral Tablet 10/03/2020 12:00:00 AM E [facility] ([facility]) 3 ML Insulin, Aspart, Human 100 UNT/ML Pen Injector [N ovoLog] 10/03/2020 12:00:00 AM [facility]) Omeprazole 20 MG Delayed Release Oral Capsule 10/03/2020 12:00:00 A M [facility]) clopidogrel 75 MG Oral Tablet [Plavix] 10/03/2020 12:00:00 AM [facility]) Ramipril 10 MG Oral Capsule 10/03/2020 12:00:00 AM [facility]) ropinirole 0.5 MG Oral Tablet 10/03/2020 12:00:00 AM [facility] ([facility]) ezetimibe 10 MG Oral Tablet [Zetia] 10/03/2020 12:00:00 AM [facility]) Simvastatin 40 MG Oral Tablet [Zocor] 10/03/2020 12:00:00 AM [facility]) Amylases 26697 UNT / Endopeptidases 1900 0 UNT / Lipase 6000 UNT Delayed Release Oral Capsule [Creon] 10/03/2020 12:00:00 AM [facility]) Aspirin 81 MG Chewable Tablet 10/03/2020 12:00:00 AM [facility]) Atenolol 50 MG Oral Tablet 10/03/2020 12:00:00 AM [facility]) Citalopram 20 MG Oral Tablet 10/03/2020 12:00:00 AM [facility]) Pen [place] 5/16" 31G X 8 MM Miscellaneous 10/03/2020 12:00:00 AM E [facility] ([facility]) sitagliptin 100 MG Oral Tablet [Januvia] 09/30/2020 [facility] Ergocalciferol 54083 UNT Oral Capsule [Drisdol] 07/16/2020 12:00:00 AM EDT [place] ([facility]) Cyclobenzaprine hydrochloride 10 MG Oral Tablet 07/16/2020 12:00:00 AM EDT [place] ([facility]) gabapentin 600 MG Oral Tablet 07/16/2020 12:00:00 AM EDT [place] ([facility]) Simvastatin 40 MG Oral Tablet [Zocor] 07/16/2020 12:00:00 AM EDT [place] ([facility]) ezetimibe 10 MG Oral Tablet [Zetia] 07/16/2020 12:00:00 AM EDT [facility]) ropinirole 0.5 MG Oral Tablet 07/16/2020 12:00:00 AM EDT [place] ([facility]) Ramipril 10 MG Oral Capsule 07/16/2020 12:00:00 AM EDT [place] ([facility]) clopidogrel 75 MG Oral Tablet [Plavix] 07/16/2020 12:00:00 AM EDT [place] ([facility]) Omeprazole 20 MG Delayed Release Oral Capsule 07/16/2020 12:00:00 A M [facility]) 12 HR Bupropion Hydrochloride 150 MG Extended Release Oral Tablet 07/16/2020 12:00:00 AM [facility] ([facility]) Metformin hydrochloride 500 MG Oral Tablet 07/16/2020 12:00:00 AM E DT [place] ([facility]) 7 ACTUAT umeclidinium 0.0625 MG/ACTUAT Dry Powder Inha ler [Incruse] 07/16/2020 12:00:00 AM EDT [place] ([facility]) 3 ML Insulin, Aspart, Human 100 UNT/ML Pen Injector [N ovoLog] 07/16/2020 12:00:00 AM T [place] ([facility]) Citalopram 20 MG Oral Tablet 07/16/2020 12:00:00 AM T [place] ([facility]) sitagliptin 100 MG Oral Tablet [Januvia] 07/16/2020 12:00:00 AM EDT [place] ([facility]) Aspirin 81 MG Chewable Tablet 07/16/2020 12:00:00 AM EDT [facility]) Atenolol 50 MG Oral Tablet 07/16/2020 12:00:00 AM EDT [place] ([facility]) Amylases 31903 UNT / Endopeptidases 1900 0 UNT / Lipase 6000 UNT Delayed Release Oral Capsule [Creon] 06/05/2020 12:00:00 AM EDT [facility]) Cyclobenzaprine hydrochloride 10 MG Oral Tablet 05/15/2020 12:00:00 AM EDT [facility]) Ergocalciferol 12780 UNT Oral Capsule [Drisdol] 05/15/2020 12:00:00 AM EDT [facility]) gabapentin 600 MG Oral Tablet 05/15/2020 12:00:00 AM T [facility]) 7 ACTUAT umeclidinium 0.0625 MG/ACTUAT Dry Powder Inha ler [Incruse] 05/15/2020 12:00:00 AM EDT [place] ([facility]) sitagliptin 100 MG Oral Tablet [Januvia] 05/15/2020 12:00:00 AM [facility]) 3 ML Insulin, Aspart, Human 100 UNT/ML Pen Injector [N ovoLog] 05/15/2020 12:00:00 AM [facility] ([facility]) clopidogrel 75 MG Oral Tablet [Plavix] 05/15/2020 12:00:00 AM EDT [facility]) Omeprazole 20 MG Delayed Release Oral Capsule 05/15[facility]2020 [facility] ezetimibe 10 MG Oral Tablet [Zetia] 05/15/2020 12:00:00 AM EDT [facility]) Simvastatin 40 MG Oral Tablet [Zocor] 05/15/2020 12:00:00 AM T [facility]) Metformin hydrochloride 500 MG Oral Tablet 05/15/2020 12:00:00 AM E [facility] ([facility]) Ramipril 10 MG Oral Capsule 05/15/2020 12:00:00 AM EDT [place] ([facility]) ropinirole 0.5 MG Oral Tablet 05/15/2020 12:00:00 AM EDT [place] ([facility]) Pen [place] 5/16" 31G X 8 MM Miscellaneous 05/15/2020 12:00:00 AM E [facility] ([facility]) Aspirin 81 MG Chewable Tablet 05/15/2020 12:00:00 AM EDT [place] ([facility]) 12 HR Bupropion Hydrochloride 150 MG Extended Release Oral Tablet 05/15/2020 12:00:00 AM EDT [place] ([facility]) Citalopram 20 MG Oral Tablet 05/15/2020 12:00:00 AM [facility] ([facility]) Atenolol 50 MG Oral Tablet 05/15/2020 12:00:00 AM T [place] ([facility]) 0.5 ML dulaglutide 3 MG/ML Auto-Injector 04/11/2020 12:00:00 AM [facility]
== END 2021-08-16 11:26 | disposition left against medical advice (07) ==
LOC: M ED 07:52
DX: Z53.21 Procedure and treatment not carried out due to patient leaving prior to being seen by health care provider (principal)

== ENCOUNTER → 2021-10-25 | Outpatient (CLI) | payer OTHER ==
[~2021-10-25] MED LIST changes: -CITA40TA4 PO; +CITA40TA7 PO; +OMEP-173; -OMEP-218
== END ==
LOC: M RAD 14:14
PROVIDERS: ATTEND Registered Nurse
DX: E04.9 Nontoxic goiter, unspecified (principal)

== ENCOUNTER → 2022-01-15 | Outpatient (CLI) | payer OTHER ==
[~2022-01-15] MED LIST changes: +BUPR-71 PO; -BUPR150T5 PO
[2022-01-15 11:23] LABS: BLOOD UREA NITROGEN 13 MG/DL (7-18); CALCIUM LEVEL 9.7 MG/DL (8.8-10.2); CARBON DIOXIDE LEVEL 29 MEQ/L (21-32); CHLORIDE LEVEL 102 MEQ/L (98-107); CREATININE FOR GFR 1.07 MG/DL (0.70-1.30); GLOMERULAR FILTRATION RATE > 60.0 (>49); GLUCOSE, FASTING 299 MG/DL (70-100); POTASSIUM SERUM 4.1 MEQ/L (3.5-5.1); SODIUM LEVEL 137 MEQ/L (136-145)
== END ==
LOC: M PLAIMG 06:59
PROVIDERS: ATTEND Registered Nurse
DX: M51.26 Other intervertebral disc displacement, lumbar region (principal); M43.06 Spondylolysis, lumbar region; M62.830 Muscle spasm of back; M51.06 Intervertebral disc disorders with myelopathy, lumbar region; M48.061 Spinal stenosis, lumbar region without neurogenic claudication; M48.07 Spinal stenosis, lumbosacral region

== ENCOUNTER → 2022-01-27 | Outpatient (CLI) | payer OTHER | LOC: M PLAIMG 07:58 | PROVIDERS: ATTEND Internal Medicine Pulmonary Disease | DX: R91.8 Other nonspecific abnormal finding of lung field (principal) ==

== ENCOUNTER 2022-04-12 11:32 | Emergency (ER) | payer OTHER ==
[~2022-04-12] VITALS: Ht 162.6 cm; Wt 81.3 kg
[2022-04-12 11:33] VITALS: BP 141/83
== END 2022-04-12 14:36 | disposition home or self-care (01) ==
LOC: M ED 11:32
DX: Z48.817 Encounter for surgical aftercare following surgery on the skin and subcutaneous tissue (principal); E11.9 Type 2 diabetes mellitus without complications; I10 Essential (primary) hypertension; N18.2 Chronic kidney disease, stage 2 (mild); E78.5 Hyperlipidemia, unspecified; F32.A Depression, unspecified; Z79.899 Other long term (current) drug therapy; Z79.01 Long term (current) use of anticoagulants; Z79.84 Long term (current) use of oral hypoglycemic drugs; Z79.4 Long term (current) use of insulin; Z88.8 Allergy status to other drugs, medicaments and biological substances; F17.200 Nicotine dependence, unspecified, uncomplicated

== ENCOUNTER → 2022-07-11 | Outpatient (CLI) | payer OTHER ==
[~2022-07-11] MED LIST changes: +DULA3PEN SQ; +DULA4.5P INJ; +ERGO500029 PO; +FAMO20TA5 PO; +METH4TAB8 PO; +PANT40TA29 PO; +SUCR1ORA PO; +TIZA2TA PO
== END ==
LOC: M PLALAB 08:14
PROVIDERS: ATTEND Registered Nurse
DX: Z79.899 Other long term (current) drug therapy (principal); B95.8 Unspecified staphylococcus as the cause of diseases classified elsewhere

== ENCOUNTER → 2022-08-01 | Outpatient (CLI) | payer OTHER ==
[~2022-08-01] MED LIST changes: +CLOP75TA99 PO; -PLAV1TAB2 PO
== END ==
LOC: M RAD 09:55
PROVIDERS: ATTEND Surgery Vascular Surgery
DX: I70.293 Other atherosclerosis of native arteries of extremities, bilateral legs (principal); R09.89 Other specified symptoms and signs involving the circulatory and respiratory systems

== ENCOUNTER → 2022-09-07 | Outpatient (CLI) | payer OTHER | LOC: M LABSMTC 11:45 | PROVIDERS: ATTEND Anesthesiology | DX: Z01.812 Encounter for preprocedural laboratory examination (principal); Z11.52 Encounter for screening for COVID-19 ==

== ENCOUNTER → 2022-09-23 | Outpatient (CLI) | payer OTHER ==
[2022-09-23 11:29] LABS: BLOOD UREA NITROGEN 23 MG/DL (9-23); GLOMERULAR FILTRATION RATE > 60.0 (>49)
== END ==
LOC: M LAB 10:33
PROVIDERS: ATTEND Surgery Vascular Surgery
DX: Z01.810 Encounter for preprocedural cardiovascular examination (principal)

== ENCOUNTER → 2022-09-24 | Outpatient (CLI) | payer OTHER ==
[~2022-09-24] MED LIST changes: +ISOVUE-370 76% 100ML VIAL As Ordered ONE
== END ==
LOC: M RAD 14:34
PROVIDERS: ATTEND Surgery Vascular Surgery
DX: I70.293 Other atherosclerosis of native arteries of extremities, bilateral legs (principal); M51.17 Intervertebral disc disorders with radiculopathy, lumbosacral region; I70.0 Atherosclerosis of aorta; M43.07 Spondylolysis, lumbosacral region; R91.8 Other nonspecific abnormal finding of lung field; Z96.652 Presence of left artificial knee joint
CPT/HCPCS: 75635; Q9967

== ENCOUNTER → 2022-10-20 | Outpatient (CLI) | payer OTHER ==
[~2022-10-20] MED LIST changes: -ISOVUE-370 76% 100ML VIAL As Ordered ONE
== END ==
LOC: M LABSMTC 10:51
PROVIDERS: ATTEND Anesthesiology
DX: Z01.818 Encounter for other preprocedural examination (principal)

== ENCOUNTER → 2022-10-20 | Outpatient (CLI) | payer OTHER ==
[2022-10-20 10:01] LABS: APPEARANCE, URINE MANUAL CLEAR (CLEAR); COLOR, URINE MANUAL LT YELLOW (YELLOW)
[2022-10-20 10:02] LABS: BLOOD URINE MANUAL TRACE (NEGATIVE); GLUCOSE, URINE (UA) MANUAL 4+(1000 MG/DL) mg/dL (NEGATIVE); PROTEIN, URINE MANUAL 1+ mg/dL (NEGATIVE); SPECIFIC GRAVITY,URINE MANUAL 1.015 (1.002-1.035)
[2022-10-20 10:03] LABS: BILIRUBIN, URINE MANUAL NEGATIVE (NEGATIVE); KETONE, URINE MANUAL NEGATIVE (NEGATIVE); LEUKOCYTE ESTERASE, URINE MAN NEGATIVE (NEGATIVE); NITRITE, URINE MANUAL NEGATIVE (NEGATIVE); UROBILINOGEN, URINE MANUAL NORMAL (NORMAL)
[2022-10-20 10:04] LABS: HEMATOCRIT 46.7 % (42.0-52.0); MEAN CORPUSCULAR HEMOGLOBIN 33.5 pg (27.0-33.0); MEAN CORPUSCULAR HGB CONC 34.3 g/dl (32.0-36.5); MEAN CORPUSCULAR VOLUME 97.9 fl (80.0-96.0); PLATELET COUNT, AUTOMATED 264 10^3/uL (150-450); RED BLOOD COUNT 4.77 10^6/uL (4.30-6.10); WHITE BLOOD COUNT 9.6 10^3/uL (4.0-10.0)
[2022-10-20 10:22] LABS: RBC, URINE 0-1 /hpf (0-3); SQUAMOUS EPITHELIAL CELL URINE SMALL AMOUNT /hpf (SMALL AMT)
[2022-10-20 10:23] LABS: BACTERIA, URINE SMALL AMOUNT; CREATININE, URINE 31.1 MG/DL; HYALINE CAST, URINE NONE SEEN /lpf (0-1); MAU/CREAT RATIO 398.7 MCG/MG (0.0-30.0)
[2022-10-20 11:00] LABS: HEMOGLOBIN A1c 13.8 % (4.0-6.0)
[2022-10-20 13:01] LABS: MAGNESIUM LEVEL 1.7 MG/DL (1.8-2.4)
[2022-10-20 13:02] LABS: URIC ACID 4.5 MG/DL (3.7-9.2)
[2022-10-20 13:05] LABS: CPK CREATINE PHOSPHOKINASE 79 U/L (46-171)
[2022-10-20 13:15] LABS: ALBUMIN 3.5 G/DL (3.2-5.2); ALKALINE PHOSPHATASE 78 U/L (46-116); ALT/SGPT 47 U/L (7.0-40); AST/SGOT 24 U/L (<34); BILIRUBIN,TOTAL 0.5 MG/DL (0.3-1.2); BLOOD UREA NITROGEN 20 MG/DL (9-23); CALCIUM LEVEL 10.4 MG/DL (8.3-10.6); CARBON DIOXIDE LEVEL 28 MMOL/L (20-31); CHLORIDE LEVEL 98 MMOL/L (98-107); CHOLESTEROL LEVEL 102 MG/DL (<200); FREE T3 3.6 PG/ML (2.3-4.2); FREE T4 1.13 NG/DL (0.89-1.76); GLOMERULAR FILTRATION RATE > 60.0 (>49); GLUCOSE, FASTING 462 MG/DL (74-106); HDL CHOLESTEROL 50.9 MG/DL (>40); LDL CHOLESTEROL 30.7 MG/DL (<100); NON-HDL-C 51 MG/DL; POTASSIUM SERUM 4.6 MMOL/L (3.5-5.1); PROSTATIC SPECIFIC AG MONITOR 0.21 NG/ML (< 4.00); SODIUM LEVEL 137 MMOL/L (136-145); TOTAL 25(OH) VITAMIN D 98.5 NG/ML (20.0-100.0); TOTAL PROTEIN 6.8 G/DL (5.7-8.2); TRIGLYCERIDES LEVEL 102 MG/DL (<150); VITAMIN B12 LEVEL 571 PG/ML (211-911)
== END ==
LOC: M LAB 08:47
PROVIDERS: ATTEND Registered Nurse
DX: E78.5 Hyperlipidemia, unspecified (principal); K21.9 Gastro-esophageal reflux disease without esophagitis; I10 Essential (primary) hypertension; E55.9 Vitamin D deficiency, unspecified; E11.9 Type 2 diabetes mellitus without complications; Z12.5 Encounter for screening for malignant neoplasm of prostate; Z79.899 Other long term (current) drug therapy

== ENCOUNTER 2022-10-23 10:11 | Day surgery (SDC) | payer OTHER ==
[~2022-10-23] VITALS: Ht 162.6 cm; Wt 79.4 kg
[~2022-10-23 10:11] MED LIST changes: +NS 1,000 ML IV ONE
[2022-10-23] MEDS ORDERED: propofoL 200 MG/20 ML VIAL As Ordered ONE (11:32)
[2022-10-23] MEDS ORDERED: LIDOCAINE 2% 100MG/5ML SDV (FOR ANES.) As Ordered ONE (11:32)
[2022-10-23 12:33] VITALS: BP 126/67
== END 2022-10-23 12:35 | disposition home or self-care (01) ==
LOC: M OPP 10:11
PROVIDERS: ATTEND Surgery
DX: Z86.010 Personal history of colon polyps (principal); D12.6 Benign neoplasm of colon, unspecified; K57.30 Diverticulosis of large intestine without perforation or abscess without bleeding; Z79.02 Long term (current) use of antithrombotics/antiplatelets; Z79.4 Long term (current) use of insulin; Z79.811 Long term (current) use of aromatase inhibitors; Z79.899 Other long term (current) drug therapy; Z88.8 Allergy status to other drugs, medicaments and biological substances; E11.9 Type 2 diabetes mellitus without complications; G47.33 Obstructive sleep apnea (adult) (pediatric); Z99.89 Dependence on other enabling machines and devices; I12.9 Hypertensive chronic kidney disease with stage 1 through stage 4 chronic kidney disease, or unspecified chronic kidney disease; E78.00 Pure hypercholesterolemia, unspecified; I73.9 Peripheral vascular disease, unspecified; N18.2 Chronic kidney disease, stage 2 (mild); F17.200 Nicotine dependence, unspecified, uncomplicated

== ENCOUNTER → 2023-03-25 | Outpatient (CLI) | payer OTHER ==
[~2023-03-25] MED LIST changes: -NS 1,000 ML IV ONE
== END ==
LOC: M PLAIMG 09:16
PROVIDERS: ATTEND Internal Medicine Pulmonary Disease
DX: R91.8 Other nonspecific abnormal finding of lung field (principal)

== ENCOUNTER → 2023-04-09 | Outpatient (CLI) | payer OTHER ==
[~2023-04-09] MED LIST changes: -ROPI0.5T3; -ROPI0.5T3 PO; +ROPI0.5T33; +ROPI0.5T33 PO
== END ==
LOC: M RAD 09:54
PROVIDERS: ATTEND Registered Nurse
DX: S39.93XA Unspecified injury of pelvis, initial encounter (principal); M25.551 Pain in right hip; X58.XXXA Exposure to other specified factors, initial encounter; Y92.9 Unspecified place or not applicable; Y93.9 Activity, unspecified; Y99.9 Unspecified external cause status

== ENCOUNTER 2023-05-15 22:18 | Observation (INO) | payer OTHER ==
[~2023-05-15] VITALS: Ht 162.6 cm; Wt 78.2 kg
[~2023-05-15 22:18] MED LIST changes: -LEVO1TAB40 PO; -PRED50TA PO
[2023-05-15 22:46] LABS: VENOUS BASE EXCESS 1.7 (-2.0-2.0); VENOUS HCO3 27.7 MMOL/L (23.0-27.0); VENOUS O2 SATURATION 42.9 % (60.0-80.0); VENOUS PARTIAL PRESSURE CO2 48.4 mmHg (38.0-50.0); VENOUS PARTIAL PRESSURE O2 22.1 mmHg (30.0-50.0); VENOUS PH 7.375 UNITS (7.330-7.430); VENOUS STANDARD HCO3 24.5 MMOL/L; VENOUS TOTAL CO2 29.2 MMOL/L (24.0-28.0)
[2023-05-15 22:56] LABS: BASO # 0.1 10^3/uL (0.0-0.2); BASO % 0.6 % (0.0-1.0); EOS # 0.2 10^3/uL (0.0-0.5); EOS % 1.5 % (0.0-3.0); HEMATOCRIT 42.4 % (42.0-52.0); HEMOGLOBIN 14.9 g/dl (13.5-17.5); LYMPH # 2.7 10^3/uL (1.5-5.0); LYMPH % 21.2 % (24.0-44.0); MEAN CORPUSCULAR HEMOGLOBIN 34.3 pg (27.0-33.0); MEAN CORPUSCULAR HGB CONC 35.1 g/dl (32.0-36.5); MEAN CORPUSCULAR VOLUME 97.5 fl (80.0-96.0); MONO # 1.3 10^3/uL (0.0-0.8); NEUTROPHILS # 8.3 10^3/uL (1.5-8.5); NEUTROPHILS % 66.1 % (36.0-66.0); PLATELET COUNT, AUTOMATED 252 10^3/uL (150-450); RED BLOOD COUNT 4.35 10^6/uL (4.30-6.10); WHITE BLOOD COUNT 12.5 10^3/uL (4.0-10.0)
[2023-05-15 23:02] LABS: CPK CREATINE PHOSPHOKINASE 98 U/L (46-171)
[2023-05-15 23:03] LABS: ALBUMIN 3.1 G/DL (3.2-5.2); ALKALINE PHOSPHATASE 97 U/L (46-116); ALT/SGPT 51 U/L (7.0-40); AST/SGOT 29 U/L (<34); BILIRUBIN,DIRECT 0.3 MG/DL (<0.4); BILIRUBIN,TOTAL 0.8 MG/DL (0.3-1.2); BLOOD UREA NITROGEN 12 MG/DL (9-23); CALCIUM LEVEL 8.8 MG/DL (8.3-10.6); CARBON DIOXIDE LEVEL 28 MMOL/L (20-31); CHLORIDE LEVEL 101 MMOL/L (98-107); CK-MB VALUE MASS 1.3 NG/ML (<3.6); CREATININE FOR GFR 0.69 MG/DL (0.70-1.30); GLOMERULAR FILTRATION RATE > 60.0 (>49); GLUCOSE, FASTING 186 MG/DL (74-106); MB/CK RELATIVE INDEX 1.32 (< OR =4); SODIUM LEVEL 135 MMOL/L (136-145); TOTAL PROTEIN 6.4 G/DL (5.7-8.2)
[2023-05-15] MEDS ORDERED: IPRATROPIUM 0.5MG/ALBUTEROL 2.5MG INH SOL UD 3ML (DUONEB) NEB ONE (23:05)
[2023-05-16] VITALS (13 sets, daily range): BP systolic 113–120; BP diastolic 56–62; TEMP 97.5–98; O2SAT 90–96
[2023-05-16] MEDS ORDERED: ISOVUE-370 76% 100ML VIAL As Ordered ONE (00:11)
[2023-05-16 00:15] LABS: CK-MB VALUE MASS 1.8 NG/ML (<3.6)
[2023-05-16 00:18] LABS: MB/CK RELATIVE INDEX 1.87 (< OR =4)
[2023-05-16] MEDS ORDERED: cefTRIAXone SOD 1 GM in D5W MINI-BAG PLUS 50 ML IV ONE (01:30)
[2023-05-16] MEDS ORDERED: SPIR1CAP INH (02:09)
[2023-05-16] MEDS ORDERED: CYCL-707 PO (02:09)
[2023-05-16] MEDS ORDERED: HOME MED LIST COMPLETE! XX SCH (02:10)
[2023-05-16] MEDS ORDERED: ASPI81TA26 PO (02:28)
[2023-05-16] MEDS ORDERED: DEXTROSE 50% 50ML SYRINGE IV PRN (02:45)
[2023-05-16] MEDS ORDERED: ALBUTEROL SULFATE 2.5MG/0.5ML INH NEB SOLN NEB PRN (02:45)
[2023-05-16] MEDS ORDERED: GLUCAGON INJ 1MG VIAL SC PRN (02:45)
[2023-05-16] MEDS ORDERED: GLUCOSE 4GM CHEW TABLET PO PRN (02:45)
[2023-05-16] MEDS ORDERED: ACETAMINOPHEN TAB 650MG DOSE (2X325MG) PO PRN (02:45)
[2023-05-16 07:03] LABS: HEMATOCRIT 38.9 % (42.0-52.0); HEMOGLOBIN 13.5 g/dl (13.5-17.5); MEAN CORPUSCULAR HEMOGLOBIN 33.7 pg (27.0-33.0); MEAN CORPUSCULAR HGB CONC 34.7 g/dl (32.0-36.5); PLATELET COUNT, AUTOMATED 221 10^3/uL (150-450); RED BLOOD COUNT 4.01 10^6/uL (4.30-6.10); WHITE BLOOD COUNT 7.1 10^3/uL (4.0-10.0)
[2023-05-16 07:27] LABS: BLOOD UREA NITROGEN 15 MG/DL (9-23); CALCIUM LEVEL 8.4 MG/DL (8.3-10.6); CARBON DIOXIDE LEVEL 26 MMOL/L (20-31); CHLORIDE LEVEL 102 MMOL/L (98-107); CREATININE FOR GFR 0.67 MG/DL (0.70-1.30); GLOMERULAR FILTRATION RATE > 60.0 (>49); GLUCOSE, FASTING 361 MG/DL (74-106); MAGNESIUM LEVEL 1.3 MG/DL (1.8-2.4); POTASSIUM SERUM 4.5 MMOL/L (3.5-5.1); SODIUM LEVEL 138 MMOL/L (136-145)
[2023-05-16] MEDS: INSULIN LISPRO (NovoLOG) PER UNIT SC SCH ×3 (07:57→17:39)
[2023-05-16] MEDS: CLOPIDOGREL 75 MG TAB PO SCH (07:58)
[2023-05-16] MEDS: DOXYCYCLINE HYCLATE 100MG TABLET PO SCH ×2 (07:58→21:49)
[2023-05-16] MEDS: predniSONE 20 MG TAB PO SCH (07:58)
[2023-05-16] MEDS: ASPIRIN 81MG ENTERIC TABLET PO SCH (07:58)
[2023-05-16] MEDS: guaiFENesin ER 600 MG TAB PO SCH ×2 (07:58→21:49)
[2023-05-16] MEDS: atenoloL 50 MG TAB PO SCH (07:59)
[2023-05-16] MEDS: TIOTROPIUM INHALER/CAPSULE (SPIRIVA) INH SCH (08:36)
[2023-05-16] MEDS: IPRATROPIUM 0.5MG/ALBUTEROL 2.5MG INH SOL UD 3ML (DUONEB) NEB SCH ×3 (08:36→19:23)
[2023-05-16] MEDS ORDERED: MAGNESIUM OXIDE 400MG TAB (MAG-OX) PO ONE (09:00)
[2023-05-16] MEDS: ramipriL 5 MG CAP PO SCH (09:00)
[2023-05-16] MEDS ORDERED: LEVO1TAB40 PO (09:29)
[2023-05-16] MEDS ORDERED: PRED50TA PO (09:32)
[2023-05-16] MEDS ORDERED: INSULIN LISPRO (NovoLOG) PER UNIT SC STA ×4 (11:21→15:36)
[2023-05-16] MEDS ORDERED: LEVEMIR (INSULIN DETEMIR) 1 UNITS/0.01ML SC ONE (12:00)
[2023-05-16] MEDS ORDERED: cefTRIAXone SOD 2 GM in D5W MINI-BAG PLUS 50 ML IV SCH (14:00)
[2023-05-16] MEDS: CitaloPRAM (CeleXA) 20 MG TAB PO SCH (14:26)
[2023-05-16] MEDS: RIVAROXABAN 10MG TAB (XARELTO) PO SCH (14:26)
[2023-05-16] MEDS: buPROPion **SR TABLET** (ZYBAN) 150MG PO SCH (16:36)
[2023-05-16] MEDS ORDERED: EZETIMIBE 10MG TABLET (ZETIA) PO SCH (21:00)
[2023-05-16] MEDS ORDERED: INSULIN LISPRO (NovoLOG) PER UNIT SC SCH (21:00)
[2023-05-16] MEDS ORDERED: LEVEMIR (INSULIN DETEMIR) 1 UNITS/0.01ML SC SCH (21:00)
[2023-05-16] MEDS ORDERED: CYCLOBENZAPRINE 10MG TABLET PO SCH (21:00)
[2023-05-16] MEDS ORDERED: SIMVASTATIN 40 MG TAB PO SCH (21:00)
[2023-05-16] MEDS ORDERED: rOPINIRole 0.25 MG TAB(REQUIP) PO SCH (21:00)
[2023-05-17] VITALS (13 sets, daily range): BP systolic 107–111; BP diastolic 56; TEMP 97.1–97.6; O2SAT 90–97
[2023-05-17] MEDS: IPRATROPIUM 0.5MG/ALBUTEROL 2.5MG INH SOL UD 3ML (DUONEB) NEB SCH ×2 (02:53→07:23)
[2023-05-17 06:52] LABS: HEMATOCRIT 39.2 % (42.0-52.0); HEMOGLOBIN 13.5 g/dl (13.5-17.5); MEAN CORPUSCULAR HEMOGLOBIN 33.5 pg (27.0-33.0); MEAN CORPUSCULAR HGB CONC 34.4 g/dl (32.0-36.5); MEAN CORPUSCULAR VOLUME 97.3 fl (80.0-96.0); PLATELET COUNT, AUTOMATED 263 10^3/uL (150-450); RED BLOOD COUNT 4.03 10^6/uL (4.30-6.10); WHITE BLOOD COUNT 15.5 10^3/uL (4.0-10.0)
[2023-05-17] MEDS: TIOTROPIUM INHALER/CAPSULE (SPIRIVA) INH SCH (07:23)
[2023-05-17 07:25] LABS: BLOOD UREA NITROGEN 22 MG/DL (9-23); CALCIUM LEVEL 9.1 MG/DL (8.3-10.6); CARBON DIOXIDE LEVEL 27 MMOL/L (20-31); CHLORIDE LEVEL 105 MMOL/L (98-107); CREATININE FOR GFR 0.76 MG/DL (0.70-1.30); GLOMERULAR FILTRATION RATE > 60.0 (>49); GLUCOSE, FASTING 153 MG/DL (74-106); MAGNESIUM LEVEL 1.6 MG/DL (1.8-2.4); POTASSIUM SERUM 4.1 MMOL/L (3.5-5.1); SODIUM LEVEL 141 MMOL/L (136-145)
[2023-05-17] MEDS: ramipriL 5 MG CAP PO SCH (08:31)
[2023-05-17] MEDS: INSULIN LISPRO (NovoLOG) PER UNIT SC SCH ×2 (08:31→12:34)
[2023-05-17] MEDS: CitaloPRAM (CeleXA) 20 MG TAB PO SCH (08:32)
[2023-05-17] MEDS: buPROPion **SR TABLET** (ZYBAN) 150MG PO SCH (08:32)
[2023-05-17] MEDS: CLOPIDOGREL 75 MG TAB PO SCH (08:32)
[2023-05-17] MEDS: predniSONE 20 MG TAB PO SCH (08:32)
[2023-05-17] MEDS: guaiFENesin ER 600 MG TAB PO SCH (08:32)
[2023-05-17] MEDS: atenoloL 50 MG TAB PO SCH (08:32)
[2023-05-17] MEDS: DOXYCYCLINE HYCLATE 100MG TABLET PO SCH (08:32)
[2023-05-17] MEDS: ASPIRIN 81MG ENTERIC TABLET PO SCH (08:32)
[2023-05-17] MEDS: RIVAROXABAN 10MG TAB (XARELTO) PO SCH (08:33)
[2023-05-17] MEDS ORDERED: MAGNESIUM OXIDE 400MG TAB (MAG-OX) PO ONE (09:00)
[2023-05-19 16:08] LABS: BODY FLUID CULTURE Not indicated. (.); LEGIONELLA ANTIGEN URINE Negative (Negative); ORGANISM ID Not indicated. (.); SPECIMEN SOURCE Urine (.); URINE STREP PNEUMONIAE ANTIGEN Negative (Negative)
== END 2023-05-17 12:38 | disposition home or self-care (01) ==
LOC: M ED 22:18 → M ED INP 22:19 → M PCU 05-16 14:02
PROVIDERS: ADMIT Family Medicine; ATTEND Family Medicine
DX: J18.9 Pneumonia, unspecified organism (principal); J96.01 Acute respiratory failure with hypoxia; J44.1 Chronic obstructive pulmonary disease with (acute) exacerbation; Z99.81 Dependence on supplemental oxygen; I12.9 Hypertensive chronic kidney disease with stage 1 through stage 4 chronic kidney disease, or unspecified chronic kidney disease; E78.5 Hyperlipidemia, unspecified; I73.9 Peripheral vascular disease, unspecified; N18.9 Chronic kidney disease, unspecified; F32.A Depression, unspecified; F41.9 Anxiety disorder, unspecified; G25.81 Restless legs syndrome; F17.210 Nicotine dependence, cigarettes, uncomplicated; Z88.8 Allergy status to other drugs, medicaments and biological substances; Z79.899 Other long term (current) drug therapy; Z79.82 Long term (current) use of aspirin; Z79.85 Long-term (current) use of injectable non-insulin antidiabetic drugs; Z79.02 Long term (current) use of antithrombotics/antiplatelets; E11.65 Type 2 diabetes mellitus with hyperglycemia
CPT/HCPCS: 36415; 71045; 71275; 80048; 80053; 80076; 81001; 82043; 82550; 82553; 82803; 82947; 83605; 83735; 83880; 84484; 85025; 85027; 87040; 87077; 87186; 87449; 87486; 87581; 87633; 87798; 87899; 93005; 93041; 94640; 94760; 96365; 96366; 99285; G0378; J0696; J1815; J7512; Q9967

== ENCOUNTER → 2023-05-15 | Outpatient (CLI) | payer OTHER ==
[~2023-05-15] MED LIST changes: +LEVO1TAB40 PO; +PRED50TA PO
[2023-05-15 09:52] LABS: APPEARANCE, URINE CLEAR (CLEAR); BACTERIA, URINE AUTO NEGATIVE (NEGATIVE); BILIRUBIN, URINE AUTO NEGATIVE (NEGATIVE); BLOOD, URINE BLOOD 1+ (NEGATIVE); COLOR, URINE YELLOW (YELLOW); GLUCOSE, URINE (UA) AUTO 3+ mg/dL (NEGATIVE); KETONE, URINE AUTO NEGATIVE (NEGATIVE); LEUKOCYTE ESTERASE, URINE AUTO NEGATIVE (NEGATIVE); MUCUS, URINE SMALL (NEGATIVE); NITRITE, URINE AUTO NEGATIVE (NEGATIVE); PROTEIN, URINE AUTO 2+ mg/dL (NEGATIVE); RBC, URINE AUTO 0 /HPF (0-3); SPECIFIC GRAVITY URINE AUTO 1.018 (1.002-1.035); SQUAMOUS EPITHELIAL CELL UR AU 0 /HPF (0-6); UROBILINOGEN, URINE AUTO 0.2 mg/dL (0.0-2.0); WBC, URINE AUTO 0 /HPF (0-3)
[2023-05-15 09:53] LABS: HEMATOCRIT 41.7 % (42.0-52.0); HEMOGLOBIN 14.1 g/dl (13.5-17.5); MEAN CORPUSCULAR HEMOGLOBIN 33.3 pg (27.0-33.0); MEAN CORPUSCULAR HGB CONC 33.8 g/dl (32.0-36.5); MEAN CORPUSCULAR VOLUME 98.6 fl (80.0-96.0); PLATELET COUNT, AUTOMATED 246 10^3/uL (150-450); RED BLOOD COUNT 4.23 10^6/uL (4.30-6.10); WHITE BLOOD COUNT 8.9 10^3/uL (4.0-10.0)
[2023-05-15 10:15] LABS: CREATININE, URINE 90.2 MG/DL
[2023-05-15 10:26] LABS: ALKALINE PHOSPHATASE 90 U/L (46-116); ALT/SGPT 52 U/L (7.0-40); AST/SGOT 32 U/L (<34); BILIRUBIN,TOTAL 0.7 MG/DL (0.3-1.2); BLOOD UREA NITROGEN 14 MG/DL (9-23); CALCIUM LEVEL 9.2 MG/DL (8.3-10.6); CARBON DIOXIDE LEVEL 30 MMOL/L (20-31); CHLORIDE LEVEL 103 MMOL/L (98-107); CREATININE FOR GFR 0.75 MG/DL (0.70-1.30); GLOMERULAR FILTRATION RATE > 60.0 (>49); GLUCOSE, FASTING 219 MG/DL (74-106); POTASSIUM SERUM 4.2 MMOL/L (3.5-5.1); SODIUM LEVEL 139 MMOL/L (136-145); TOTAL PROTEIN 6.2 G/DL (5.7-8.2)
[2023-05-15 11:12] LABS: MAU/CREAT RATIO 610.8 MCG/MG (0.0-30.0)
== END ==
LOC: M LAB 09:10
PROVIDERS: ATTEND Registered Nurse
DX: E11.65 Type 2 diabetes mellitus with hyperglycemia (principal)

== ENCOUNTER → 2023-06-08 | Outpatient (CLI) | payer OTHER ==
[~2023-06-08] MED LIST changes: +LEVO1TAB40 PO; +PRED50TA PO
[2023-06-08 09:14] LABS: ALBUMIN 3.3 G/DL (3.2-5.2); ALKALINE PHOSPHATASE 69 U/L (46-116); ALT/SGPT 25 U/L (7.0-40); AST/SGOT 9 U/L (<34); BILIRUBIN,TOTAL 0.8 MG/DL (0.3-1.2); BLOOD UREA NITROGEN 23 MG/DL (9-23); CALCIUM LEVEL 9.8 MG/DL (8.3-10.6); CARBON DIOXIDE LEVEL 29 MMOL/L (20-31); CHLORIDE LEVEL 100 MMOL/L (98-107); CREATININE FOR GFR 0.76 MG/DL (0.70-1.30); GLOMERULAR FILTRATION RATE > 60.0 (>49); GLUCOSE, FASTING 474 MG/DL (74-106); POTASSIUM SERUM 4.7 MMOL/L (3.5-5.1); SODIUM LEVEL 135 MMOL/L (136-145); TOTAL PROTEIN 6.8 G/DL (5.7-8.2)
== END ==
LOC: M LAB 08:07
PROVIDERS: ATTEND Registered Nurse
DX: E11.9 Type 2 diabetes mellitus without complications (principal)

== ENCOUNTER → 2024-01-28 | Outpatient (CLI) | payer OTHER ==
[~2024-01-28] MED LIST changes: +MEMA10TA PO; -MEMA10TA19 PO; +RAMI10CA64; +RAMI10CA64 PO; -RAMI1CAP26; -RAMI1CAP26 PO
[2024-01-28 08:59] LABS: HEMATOCRIT 40.3 % (42.0-52.0); HEMOGLOBIN 14.2 g/dl (13.5-17.5); MEAN CORPUSCULAR HEMOGLOBIN 34.5 pg (27.0-33.0); MEAN CORPUSCULAR HGB CONC 35.2 g/dl (32.0-36.5); MEAN CORPUSCULAR VOLUME 97.8 fl (80.0-96.0); PLATELET COUNT, AUTOMATED 234 10^3/uL (150-450); RED BLOOD COUNT 4.12 10^6/uL (4.30-6.10); WHITE BLOOD COUNT 8.8 10^3/uL (4.0-10.0)
[2024-01-28 09:00] LABS: APPEARANCE, URINE CLEAR (CLEAR); BACTERIA, URINE AUTO NEGATIVE (NEGATIVE); BILIRUBIN, URINE AUTO NEGATIVE (NEGATIVE); BLOOD, URINE BLOOD 1+ (NEGATIVE); COLOR, URINE YELLOW (YELLOW); GLUCOSE, URINE (UA) AUTO 3+ mg/dL (NEGATIVE); KETONE, URINE AUTO NEGATIVE (NEGATIVE); LEUKOCYTE ESTERASE, URINE AUTO NEGATIVE (NEGATIVE); NITRITE, URINE AUTO NEGATIVE (NEGATIVE); PROTEIN, URINE AUTO 2+ mg/dL (NEGATIVE); RBC, URINE AUTO 0 /HPF (0-3); SQUAMOUS EPITHELIAL CELL UR AU 0 /HPF (0-6); UROBILINOGEN, URINE AUTO 0.2 mg/dL (0.0-2.0); WBC, URINE AUTO 1 /HPF (0-3)
[2024-01-28 09:19] LABS: HEMOGLOBIN A1c 12.9 % (4.0-6.0)
[2024-01-28 09:31] LABS: CREATININE, URINE 56.6 MG/DL; URIC ACID 5.6 MG/DL (3.7-9.2)
[2024-01-28 09:34] LABS: ALBUMIN 3.3 G/DL (3.2-5.2); ALKALINE PHOSPHATASE 67 U/L (46-116); ALT/SGPT 28 U/L (7.0-40); AST/SGOT 16 U/L (<34); BILIRUBIN,TOTAL 0.7 MG/DL (0.3-1.2); BLOOD UREA NITROGEN 18 MG/DL (9-23); CALCIUM LEVEL 9.6 MG/DL (8.3-10.6); CARBON DIOXIDE LEVEL 29 MMOL/L (20-31); CHLORIDE LEVEL 102 MMOL/L (98-107); CHOLESTEROL LEVEL 106 MG/DL (<200); CREATININE FOR GFR 0.82 MG/DL (0.70-1.30); GLOMERULAR FILTRATION RATE > 60.0 (>49); GLUCOSE, FASTING 300 MG/DL (74-106); HDL CHOLESTEROL 42.3 MG/DL (>40); LDL CHOLESTEROL 46.7 MG/DL (<100); MAGNESIUM LEVEL 1.4 MG/DL (1.8-2.4); NON-HDL-C 63.7 MG/DL; POTASSIUM SERUM 4.5 MMOL/L (3.5-5.1); PROSTATIC SPECIFIC AG MONITOR 0.17 NG/ML (< 4.00); SODIUM LEVEL 136 MMOL/L (136-145); TOTAL PROTEIN 6.6 G/DL (5.7-8.2); TRIGLYCERIDES LEVEL 85 MG/DL (<150)
[2024-01-28 09:35] LABS: FREE T3 3.6 PG/ML (2.3-4.2); FREE T4 1.08 NG/DL (0.89-1.76)
[2024-01-28 09:36] LABS: THYROID STIMULATING HORMONE 1.692 uIU/ML (0.55-4.78); TOTAL 25(OH) VITAMIN D 107.3 NG/ML (20.0-100.0); VITAMIN B12 LEVEL 542 PG/ML (211-911)
== END ==
LOC: M LAB 08:05
PROVIDERS: ATTEND Registered Nurse
DX: I10 Essential (primary) hypertension (principal); E78.5 Hyperlipidemia, unspecified; E11.9 Type 2 diabetes mellitus without complications; F41.1 Generalized anxiety disorder; E83.42 Hypomagnesemia; Z12.5 Encounter for screening for malignant neoplasm of prostate; R97.20 Elevated prostate specific antigen [PSA]

== ENCOUNTER → 2024-02-25 | Outpatient (CLI) | payer OTHER ==
[~2024-02-25] MED LIST changes: +ONDA-282 PO; -ONDA4TAB6 PO
[2024-02-25 09:30] LABS: ALBUMIN 3.4 G/DL (3.2-5.2); ALKALINE PHOSPHATASE 81 U/L (46-116); ALT/SGPT 23 U/L (7.0-40); AST/SGOT 19 U/L (<34); BILIRUBIN,TOTAL 0.8 MG/DL (0.3-1.2); BLOOD UREA NITROGEN 26 MG/DL (9-23); CALCIUM LEVEL 10.2 MG/DL (8.3-10.6); CARBON DIOXIDE LEVEL 28 MMOL/L (20-31); CHLORIDE LEVEL 100 MMOL/L (98-107); CREATININE FOR GFR 0.83 MG/DL (0.70-1.30); GLOMERULAR FILTRATION RATE > 60.0 (>49); GLUCOSE, FASTING 314 MG/DL (74-106); POTASSIUM SERUM 5.2 MMOL/L (3.5-5.1); SODIUM LEVEL 135 MMOL/L (136-145); TOTAL PROTEIN 6.9 G/DL (5.7-8.2)
== END ==
LOC: M RAD 08:19
PROVIDERS: ATTEND Registered Nurse
DX: J06.9 Acute upper respiratory infection, unspecified (principal); I10 Essential (primary) hypertension; R60.9 Edema, unspecified; I50.9 Heart failure, unspecified

== ENCOUNTER → 2024-02-29 | Outpatient (CLI) | payer OTHER | LOC: M CARPUL 13:54 | PROVIDERS: ATTEND Registered Nurse | DX: I50.1 Left ventricular failure, unspecified (principal) ==

== ENCOUNTER → 2024-03-01 | Outpatient (CLI) | payer OTHER ==
[2024-03-01 09:15] LABS: ALBUMIN 3.4 G/DL (3.2-5.2); ALKALINE PHOSPHATASE 69 U/L (46-116); ALT/SGPT 21 U/L (7.0-40); AST/SGOT 16 U/L (<34); BILIRUBIN,TOTAL 0.9 MG/DL (0.3-1.2); BLOOD UREA NITROGEN 23 MG/DL (9-23); CALCIUM LEVEL 9.2 MG/DL (8.3-10.6); CARBON DIOXIDE LEVEL 32 MMOL/L (20-31); CHLORIDE LEVEL 102 MMOL/L (98-107); CREATININE FOR GFR 0.87 MG/DL (0.70-1.30); GLOMERULAR FILTRATION RATE > 60.0 (>49); GLUCOSE, FASTING 263 MG/DL (74-106); POTASSIUM SERUM 5.2 MMOL/L (3.5-5.1); SODIUM LEVEL 138 MMOL/L (136-145); TOTAL PROTEIN 6.7 G/DL (5.7-8.2)
== END ==
LOC: M LAB 08:08
PROVIDERS: ATTEND Registered Nurse
DX: I50.1 Left ventricular failure, unspecified (principal)

== ENCOUNTER → 2024-03-09 | Outpatient (CLI) | payer OTHER ==
[~2024-03-09] MED LIST changes: +ISOVUE-370 76% 100ML VIAL As Ordered ONE
== END ==
LOC: M RAD 09:07
PROVIDERS: ATTEND Surgery
DX: I73.9 Peripheral vascular disease, unspecified (principal)
CPT/HCPCS: 75635; Q9967

== ENCOUNTER → 2024-03-17 | Outpatient (CLI) | payer OTHER ==
[~2024-03-17] MED LIST changes: -ISOVUE-370 76% 100ML VIAL As Ordered ONE
== END ==
LOC: M PLALAB 08:06
PROVIDERS: ATTEND Registered Nurse
DX: I50.9 Heart failure, unspecified (principal)

== ENCOUNTER → 2024-04-04 | Outpatient (CLI) | payer OTHER ==
[2024-04-04 13:52] LABS: ALBUMIN 3.4 G/DL (3.2-5.2); ALKALINE PHOSPHATASE 68 U/L (46-116); ALT/SGPT 34 U/L (7.0-40); AST/SGOT 15 U/L (<34); BILIRUBIN,TOTAL 0.9 MG/DL (0.3-1.2); BLOOD UREA NITROGEN 24 MG/DL (9-23); CALCIUM LEVEL 9.2 MG/DL (8.3-10.6); CARBON DIOXIDE LEVEL 30 MMOL/L (20-31); CHLORIDE LEVEL 103 MMOL/L (98-107); CREATININE FOR GFR 0.78 MG/DL (0.70-1.30); GLOMERULAR FILTRATION RATE > 60.0 (>49); GLUCOSE, FASTING 263 MG/DL (74-106); SODIUM LEVEL 138 MMOL/L (136-145); TOTAL PROTEIN 6.5 G/DL (5.7-8.2)
== END ==
LOC: M LAB 12:36
PROVIDERS: ATTEND Registered Nurse
DX: I50.9 Heart failure, unspecified (principal)

== ENCOUNTER → 2024-05-21 | Outpatient (CLI) | payer OTHER ==
[2024-05-21 11:00] LABS: ALBUMIN 3.5 G/DL (3.2-5.2); ALKALINE PHOSPHATASE 68 U/L (46-116); ALT/SGPT 22 U/L (7.0-40); AST/SGOT 13 U/L (<34); BILIRUBIN,TOTAL 0.7 MG/DL (0.3-1.2); BLOOD UREA NITROGEN 18 MG/DL (9-23); CALCIUM LEVEL 9.9 MG/DL (8.3-10.6); CARBON DIOXIDE LEVEL 30 MMOL/L (20-31); CHLORIDE LEVEL 104 MMOL/L (98-107); CREATININE FOR GFR 0.76 MG/DL (0.70-1.30); GLOMERULAR FILTRATION RATE > 60.0 (>49); GLUCOSE, FASTING 228 MG/DL (74-106); POTASSIUM SERUM 4.2 MMOL/L (3.5-5.1); SODIUM LEVEL 139 MMOL/L (136-145)
== END ==
LOC: M RAD 09:06
PROVIDERS: ATTEND Registered Nurse
DX: I50.9 Heart failure, unspecified (principal); R91.1 Solitary pulmonary nodule; M47.9 Spondylosis, unspecified

== ENCOUNTER → 2024-06-11 | Outpatient (CLI) | payer OTHER ==
[~2024-06-11] MED LIST changes: +GABA-1490; -GABA600T4
[2024-06-11 10:49] LABS: ALBUMIN 3.8 G/DL (3.2-5.2); ALKALINE PHOSPHATASE 76 U/L (46-116); ALT/SGPT 29 U/L (7.0-40); AST/SGOT 15 U/L (<34); BILIRUBIN,TOTAL 1.4 MG/DL (0.3-1.2); BLOOD UREA NITROGEN 32 MG/DL (9-23); CALCIUM LEVEL 10.6 MG/DL (8.3-10.6); CARBON DIOXIDE LEVEL 33 MMOL/L (20-31); CHLORIDE LEVEL 100 MMOL/L (98-107); CREATININE FOR GFR 1.22 MG/DL (0.70-1.30); GLOMERULAR FILTRATION RATE > 60.0 (>49); GLUCOSE, FASTING 228 MG/DL (74-106); POTASSIUM SERUM 4.6 MMOL/L (3.5-5.1); SODIUM LEVEL 137 MMOL/L (136-145); TOTAL PROTEIN 7.4 G/DL (5.7-8.2)
== END ==
LOC: M LAB 09:41
PROVIDERS: ATTEND Registered Nurse
DX: I50.9 Heart failure, unspecified (principal)

== ENCOUNTER → 2024-07-05 | Outpatient (CLI) | payer OTHER ==
[~2024-07-05] MED LIST changes: +E-Z-GAS II EFFERVESCENT PACKET (SODIUM BICARB./CITRIC ACID/SIMETHICONE) As Ordered ONE; +E-Z-HD 98% w/w 340GM SUSP BTL As Ordered ONE; +E-Z-PAQUE 96% w/w SUSP 176GM BTL As Ordered ONE; +GABA-1172 PO; -GABA-282 PO
== END ==
LOC: M RAD 07:27
PROVIDERS: ATTEND Registered Nurse
DX: E13.65 Other specified diabetes mellitus with hyperglycemia (principal)

== ENCOUNTER → 2024-07-20 | Outpatient (CLI) | payer OTHER ==
[~2024-07-20] MED LIST changes: -E-Z-GAS II EFFERVESCENT PACKET (SODIUM BICARB./CITRIC ACID/SIMETHICONE) As Ordered ONE; -E-Z-HD 98% w/w 340GM SUSP BTL As Ordered ONE; -E-Z-PAQUE 96% w/w SUSP 176GM BTL As Ordered ONE
== END ==
LOC: M RAD 07:22
PROVIDERS: ATTEND Internal Medicine Pulmonary Disease
DX: Z12.2 Encounter for screening for malignant neoplasm of respiratory organs (principal); F17.218 Nicotine dependence, cigarettes, with other nicotine-induced disorders; R91.8 Other nonspecific abnormal finding of lung field; I25.10 Atherosclerotic heart disease of native coronary artery without angina pectoris

== ENCOUNTER → 2024-09-14 | Outpatient (CLI) | payer OTHER ==
[2024-09-14 10:12] LABS: ALBUMIN 3.2 G/DL (3.2-5.2); ALKALINE PHOSPHATASE 72 U/L (40-129); ALT/SGPT 27 U/L (7.0-40); AST/SGOT 16 U/L (<34); BILIRUBIN,TOTAL 0.6 MG/DL (0.3-1.2); BLOOD UREA NITROGEN 33 MG/DL (9-23); CALCIUM LEVEL 10.3 MG/DL (8.3-10.6); CARBON DIOXIDE LEVEL 31 MMOL/L (20-31); CHLORIDE LEVEL 101 MMOL/L (98-107); CREATININE FOR GFR 0.97 MG/DL (0.70-1.30); GLOMERULAR FILTRATION RATE > 60.0 (>49); GLUCOSE, FASTING 325 MG/DL (74-106); MAGNESIUM LEVEL 1.7 MG/DL (1.8-2.4); POTASSIUM SERUM 5.1 MMOL/L (3.5-5.1); SODIUM LEVEL 138 MMOL/L (136-145); TOTAL PROTEIN 6.9 G/DL (5.7-8.2)
== END ==
LOC: M LAB 08:07
PROVIDERS: ATTEND Registered Nurse
DX: E11.9 Type 2 diabetes mellitus without complications (principal); E83.42 Hypomagnesemia

== ENCOUNTER → 2024-12-09 | Outpatient (CLI) | payer MEDICARE, OTHER ==
[2024-12-09 09:10] LABS: ALKALINE PHOSPHATASE 75 U/L (40-129); ALT/SGPT 23 U/L (7.0-40); AST/SGOT 15 U/L (<34); BILIRUBIN,TOTAL 0.5 MG/DL (0.3-1.2); BLOOD UREA NITROGEN 23 MG/DL (9-23); CALCIUM LEVEL 9.3 MG/DL (8.3-10.6); CARBON DIOXIDE LEVEL 31 MMOL/L (20-31); CHLORIDE LEVEL 103 MMOL/L (98-107); CREATININE FOR GFR 0.92 MG/DL (0.70-1.30); GLOMERULAR FILTRATION RATE > 60.0 (>49); GLUCOSE, FASTING 228 MG/DL (74-106); MAGNESIUM LEVEL 1.8 MG/DL (1.8-2.4); SODIUM LEVEL 139 MMOL/L (136-145); TOTAL PROTEIN 6.6 G/DL (5.7-8.2)
[2024-12-09 09:29] LABS: CREATININE, URINE 77.5 MG/DL
[2024-12-09 09:46] LABS: MAU/CREAT RATIO 1074.8 MCG/MG (0.0-30.0)
== END ==
LOC: M LAB 08:01
PROVIDERS: ATTEND Registered Nurse
DX: R11.10 Vomiting, unspecified (principal); E11.9 Type 2 diabetes mellitus without complications

== ENCOUNTER → 2025-01-23 | Outpatient (CLI) | payer MEDICARE ==
[~2025-01-23] MED LIST changes: +BUPR150T15 PO; -BUPR1TAB53 PO; -PRED50TA PO; +PRED50TA57 PO
== END ==
LOC: M LAB 08:07
PROVIDERS: ATTEND Registered Nurse
DX: I50.1 Left ventricular failure, unspecified (principal)

== ENCOUNTER → 2025-07-18 | Outpatient (CLI) | payer MEDICARE ==
[~2025-07-18] MED LIST changes: +ADME100I2 SC; +ATOR80TA59 PO; +CEFD300CAP PO; -EZET10TA21; -EZET10TA21 PO; +EZET10TA57; +EZET10TA57 PO; +FAMO1TAB11 PO; +INSU100I60 INJ; +LASI20TA3 PO; +MIDO10TA3 PO; +PRED20TA PO; +SPIR12.9 INH
== END ==
LOC: M RAD 08:12
PROVIDERS: ATTEND Internal Medicine Pulmonary Disease
DX: J44.9 Chronic obstructive pulmonary disease, unspecified (principal)

== ENCOUNTER → 2025-07-31 | Outpatient (CLI) | payer MEDICARE ==
[~2025-07-31] MED LIST changes: +E-Z-GAS II EFFERVESCENT PACKET (SODIUM BICARB./CITRIC ACID/SIMETHICONE) As Ordered ONE; +E-Z-HD 98% w/w 340 GM SUSP BTL As Ordered ONE; +E-Z-PAQUE 96% w/w SUSP 176 GM BTL As Ordered ONE
== END ==
LOC: M RAD 08:49
PROVIDERS: ATTEND Registered Nurse
DX: R13.10 Dysphagia, unspecified (principal)

== ENCOUNTER → 2025-09-18 | Outpatient (CLI) | payer MEDICARE ==
[~2025-09-18] MED LIST changes: -E-Z-GAS II EFFERVESCENT PACKET (SODIUM BICARB./CITRIC ACID/SIMETHICONE) As Ordered ONE; -E-Z-HD 98% w/w 340 GM SUSP BTL As Ordered ONE; -E-Z-PAQUE 96% w/w SUSP 176 GM BTL As Ordered ONE
== END ==
LOC: M RAD 13:32
PROVIDERS: ATTEND Registered Nurse
DX: R13.10 Dysphagia, unspecified (principal)